=== PATIENT | male | born 1940 | race Caucasian/White ===

== ENCOUNTER 2017-08-09 07:21 | Inpatient (IN) | payer MEDICARE, BC ==
[2017-08-09] VITALS (8 sets, daily range): BP systolic 114–183; BP diastolic 52–108
[~2017-08-09] VITALS: Ht 152.4 cm; Wt 86.2 kg
[~2017-08-09 07:21] MED LIST: ACETAMINOPHEN-1 EAC1 PO; ACTOS 30 MG TAB30 MG PO; ASPIR 8181 M1 PO; ATIVAN1 MG PO; CARAFATE1 GM/10 ML PO; CEFPODOXIME PR100 MG PO; FISH OIL 500 M1 EACH PO; FLOMAX0.4 MG PO; GLUCOPHAGE500 MG PO; GLUCOTROL5 MG PO; GLUMETZA500 PO; GLYCRON6 MG PO; JALYN 0.5-0.41 EACH PO; JANUVIA100 MG PO; KLOR-CON 1010 MEQ PO; LANTUS100 UNIT/M SUBQ; LASIX 40 MG TAB40 M2 PO; LEVAQUIN 250 M250 MG PO; LEVAQUIN 750 M750 MG PO; LISINOPRIL-HCT1 EAC2 PO; MINIPRIN81 MG PO; NEURONTIN 300300 M1 PO; NORVASC 5 MG TAB5 MG PO; NYSTATIN 1100000 U/M PO; OMEPRAZOLE40 MG PO; ONDANSETRON HCL4 M2 PO; PRILOSEC40 MG PO; PROBIOTIC1 EAC1 PO; REGLAN 10 MG TA10 MG PO; RESTORIL15 MG PO; SIMVASTATIN40 MG PO; SPIRIVA INH; TOPROL XL25 MG PO; TRADJENTA5 MG PO; ULTRAM 50MG TAB50 MG PO; VIAGRA100 MG PO; ZOFRAN ODT4 MG PO; ZPAK PO; ZYVOX600 MG PO
[2017-08-09 08:04] LABS: ANION GAP 12 mmol/L (7-16); BUN 25 mg/dL (7-18); CALCIUM 8.9 mg/dL (8.5-10.1); CHLORIDE 103 mmol/L (98-107); CO2 25 mmol/L (21-32); CREATININE 1.1 mg/dL (0.6-1.3); GLUCOSE 131 mg/dL (70-99); POTASSIUM 3.9 mmol/L (3.5-5.1); SODIUM 140 mmol/L (136-145)
[2017-08-09 08:07] LABS: APTT 28.8 Seconds (25.0-31.3); INR 1.2; PROTIME 11.5 Seconds (9.20-11.50)
[2017-08-09 08:08] LABS: HEMATOCRIT 33.1 % (42.0-52.0); HEMOGLOBIN 10.6 gm/dL (14.0-18.0); MCH 25.1 pg (26.0-34.0); MCV 78.3 fL (80.0-100.0); MPV 9.4 fl. (7.2-11.1); NUCLEATED RBCS 0 /100WBC; PLATELET COUNT* 207 thou/uL (150-400); RBC 4.23 mil/uL (4.50-6.00); RDW-CV 19.3 % (10.5-14.5)
[2017-08-09 08:13] LABS: ALBUMIN 3.6 g/dL (3.4-5.0); ALKALINE PHOSPHATASE 150 U/L (46-116); NT-PRO BRAIN NAT PEPTIDE 767 pg/mL (<300); SGOT 26 U/L (15-37); SGPT 21 U/L (30-65); TOTAL BILIRUBIN 0.7 mg/dL (<0.1-1.0); TOTAL PROTEIN 8.2 g/dL (6.4-8.2); TROPONIN-I LEVEL <0.06 ng/mL (<0.06)
[2017-08-09 08:15] LABS: INFLUENZA A ANTIGEN None Detected (None Detect); INFLUENZA B ANTIGEN None Detected (None Detect)
[2017-08-09 08:27] LABS: ABSOLUTE EOSINOPHILS 0.6 thou/uL (0.0-0.7); ABSOLUTE LYMPHOCYTES 1.6 thou/uL (0.8-5.3); ABSOLUTE MONOCYTES 0.3 thou/uL (0.0-1.2); ABSOLUTE NEUTROPHILS 4.6 thou/uL (1.6-8.1); HYPOCHROMASIA 1+; PLATELET ESTIMATE ADEQUATE
[2017-08-09 12:04] LABS: URINE BILIRUBIN NEGATIVE (Negative); URINE BLOOD TRACE (Negative); URINE CLARITY CLEAR; URINE COLOR YELLOW; URINE GLUCOSE-RANDOM NEGATIVE (Negative); URINE KETONES NEGATIVE (Negative); URINE LEUKOCYTES-REFLEX NEGATIVE (Negative); URINE NITRITE-REFLEX NEGATIVE (Negative); URINE PROTEIN TRACE (Negative)
[2017-08-09] MEDS ORDERED: LANTUS SUBQ (12:48)
--- NOTE | 2017-08-09 17:44 | 2DMMODE ---
[place] [address] 2 D/M-MODE ECHOCARDIOGRAM Name: ISABELAWINDY Room: 002P [facility] IN [facility]#: [id number] Admission: 08/09/17 Attend Phys: Marnie Waddell, Discharge: Date of : 36 Date of Service: 08/09/17 1743 Report #: [id number] THIS REPORT FOR: //name// APPROVED REPORT Study performed: 08/09/2017 16:14:49 EXAM: Comprehensive 2D, Doppler, and color-flow Echocardiogram Patient Location: In-Patient Room #: [facility] Status: routine BSA: 2.04 HR: 71 bpm BP: 114/50 mmHg Rhythm: NSR Other Information Study Quality: Good Indications Elevated Troponin 2D Dimensions LVEF(%): 66.46 (>50%) IVSd: 10.67 (7-11mm) LVOT Diam: 24.52 (18-24mm) LVDd: 40.53 mm PWd: 10.99 (7-11mm) LVDs: 25.84 (25-40mm) Aortic Root: 30.16 mm Roche's LVEF: 66.46 % Volumes Left Atrial Volume (Systole) LA ESV Index: 34.50 mL/m2 Aortic Valve AoV Peak Rishabh.: 1.48 m/s AO Peak Gr.: 8.78 mmHg LVOT Max P.79 mmHg AO Mean Gr.: 5.18 mmHg LVOT Mean P.75 mmHg LVOT Max V: 0.97 m/s AO V2 VTI: 26.60 cm LVOT Mean V: 0.60 m/s LALITO (VTI): 3.36 cm2 LVOT V1 VTI: 18.90 cm Mitral Valve E/A Ratio: 1.53 [place] [address] 2 D/M-MODE ECHOCARDIOGRAM Name: WINDY MAR Room: [address] IN ..#: [id number] Admission: 08/09/17 Attend Phys: Marnie Waddell, Discharge: Date of : 36 Date of Service: 08/09/17 1743 Report #: [id number] MV Decel. Time: 176.12 ms MV E Max Rishabh.: 0.89 m/s MV PHT: 51.07 ms MVA (PHT): 4.31 cm2 TDI E/Lateral E': 8.90 E/Medial E': 8.90 Medial E' Rishabh.: 0.10 m/s Lateral E' Rishabh.: 0.10 m/s Pulmonary Valve PV Peak Rishabh.: 0.99 m/s PV Peak Gr.: 3.90 mmHg Tricuspid Valve TR Peak Gr.: 25.36 mmHg RVSP: 40.00 mmHg Left Ventricle The left ventricle is normal size. There is normal LV segmental wall motion. Borderline concentric left ventricular hypertrophy. Left ventricular systolic function is normal. The left ventricular ejection fraction is within the normal range. LVEF is 60%. The left ventricular diastolic function is normal. Right Ventricle The right ventricle is normal size. The right ventricular systolic function is normal. Atria The left atrium size is normal. The right atrium size is normal. Aortic Valve Mild aortic valve sclerosis. No aortic regurgitation is present. There is no aortic valvular stenosis. Mitral Valve Mild mitral annular calcification. Trace mitral regurgitation. No evidence of mitral valve stenosis. Tricuspid Valve The tricuspid valve is normal in structure. Trace tricuspid regurgitation. The RVSP is 40-45 mmHg. Pulmonic Valve The pulmonary valve is normal in structure. [place] [address] 2 D/M-MODE ECHOCARDIOGRAM Name: WINDY MAR Room: [address] IN [facility]#: [id number] Admission: 08/09/17 Attend Phys: Marnie Waddell, Discharge: Date of : 36 Date of Service: 08/09/17 1743 Report #: [id number] Great Vessels The aortic root is normal in size. IVC is dilated and collapses >50% with inspiration. Pericardium There is no pericardial effusion. <Conclusion> The left ventricle is normal size. Borderline concentric left ventricular hypertrophy. Left ventricular systolic function is normal. The left ventricular ejection fraction is within the normal range. LVEF is 60%. The left ventricular diastolic function is normal. The right ventricle is normal size. The left atrium size is normal. Mild aortic valve sclerosis. No aortic regurgitation is present. There is no aortic valvular stenosis. Mild mitral annular calcification. Trace mitral regurgitation. No evidence of mitral valve stenosis. The tricuspid valve is normal in structure. Trace tricuspid regurgitation. The RVSP is 40-45 mmHg. IVC is dilated and collapses >50% with inspiration. There is no pericardial effusion. There is normal LV segmental wall motion. <ELECTRONICALLY SIGNED> By: Tito Encarnacion MD, FACC 08/09/171742 42 42 Tito Encarnacion MD, FACC /INF
[2017-08-10 02:00] VITALS: BP 143/101
[2017-08-10 05:47] LABS: HEMOGLOBIN 8.8 gm/dL (14.0-18.0); MCH 26.4 pg (26.0-34.0); MCHC 33.6 g/dL (28.0-37.0); MCV 78.4 fL (80.0-100.0); MPV 9.3 fl. (7.2-11.1); RBC 3.32 mil/uL (4.50-6.00); RDW-CV 19.2 % (10.5-14.5); WBC 7.3 thou/uL (4.0-11.0)
[2017-08-10 05:52] LABS: ALBUMIN 2.7 g/dL (3.4-5.0); CALCIUM 8.1 mg/dL (8.5-10.1); CREATININE 1.1 mg/dL (0.6-1.3); MAGNESIUM 1.5 mg/dL (1.8-2.4); POTASSIUM 4.1 mmol/L (3.5-5.1); TOTAL BILIRUBIN 0.7 mg/dL (<0.1-1.0); TOTAL PROTEIN 6.3 g/dL (6.4-8.2)
[2017-08-10 06:00] VITALS: BP 122/53
[2017-08-10 08:00] VITALS: BP 112/58
[2017-08-10 12:00] VITALS: BP 112/80
--- NOTE | 2017-08-10 12:39 | EKG ---
[place] [address] ELECTROCARDIOGRAM REPORT Name: WINDY MAR Room: [address] ADM IN M.R.#: [id number] Admission: 08/09/17 Attend Phys: Marnie Waddell MD Discharge: Date of : 36 Report #: [id number] THIS REPORT FOR: //name// [facility] ED Test Date: 2017-08-09 Test Time: 07:27:19 Pat Name: WINDY MAR Department: Room: [facility] Gender: M Central Supply Nurse: Mariah NOLAND : 1940 Requested By: Jac Bill Order Number: [id number] MD: Oniel Wellington Measurements Intervals Telephone Rate: 102 P: -15 RI: 225 QRS: -5 QRSD: 84 T: 131 QT: 331 QTc: 432 Interpretive Statements Sinus tachycardia Prolonged RI interval Low voltage, extremity leads Nonspecific repol abnormality, diffuse leads Compared to ECG 11/20/2016 07:37:01 First degree AV block now present Sinus rhythm no longer present Prolonged QT interval no longer present Electronically Signed On 08-10-2017 12:39:43 RESIN REMOVER by Oniel Wellington [email or web address] <ELECTRONICALLY SIGNED> By: Oniel Wellington MD, FACC 08/10/17 1239 6 6 Oniel Wellington MD, FAC /EPI
[2017-08-10 12:41] LABS: HEMATOCRIT 25.4 % (42.0-52.0); HEMOGLOBIN 8.2 gm/dL (14.0-18.0); MCH 25.5 pg (26.0-34.0); MCHC 32.3 g/dL (28.0-37.0); MCV 78.9 fL (80.0-100.0); MPV 8.6 fl. (7.2-11.1); RBC 3.22 mil/uL (4.50-6.00); RDW-CV 19.3 % (10.5-14.5); WBC 6.5 thou/uL (4.0-11.0)
[2017-08-10 15:59] VITALS: BP 136/66
[2017-08-10 23:41] VITALS: BP 133/62
[2017-08-11 04:14] VITALS: BP 144/67
[2017-08-11 04:29] LABS: HEMATOCRIT 26.3 % (42.0-52.0); HEMOGLOBIN 8.5 gm/dL (14.0-18.0); MCH 25.1 pg (26.0-34.0); MCHC 32.3 g/dL (28.0-37.0); MCV 77.7 fL (80.0-100.0); MPV 9.6 fl. (7.2-11.1); RBC 3.38 mil/uL (4.50-6.00); RDW-CV 19.6 % (10.5-14.5); WBC 7.3 thou/uL (4.0-11.0)
[2017-08-11 05:03] LABS: ALBUMIN 2.8 g/dL (3.4-5.0); CALCIUM 8.5 mg/dL (8.5-10.1); CREATININE 1.2 mg/dL (0.6-1.3); MAGNESIUM 1.5 mg/dL (1.8-2.4); POTASSIUM 3.9 mmol/L (3.5-5.1); TOTAL BILIRUBIN 0.8 mg/dL (<0.1-1.0); TOTAL PROTEIN 6.7 g/dL (6.4-8.2)
[2017-08-11 09:00] VITALS: BP 142/69
[2017-08-11 16:24] VITALS: BP 129/57
[2017-08-11 20:00] VITALS: BP 150/67
[2017-08-12 00:02] VITALS: BP 136/54
[2017-08-12 03:35] VITALS: BP 113/51
[2017-08-12 07:30] VITALS: BP 129/66
[2017-08-12] MEDS ORDERED: CEFDINIR300 MG PO (07:56)
[2017-08-12] MEDS ORDERED: ASPIR 8181 MG PO (07:56)
[2017-08-12] MEDS ORDERED: PROBIOTIC1 EAC1 PO (07:56)
[2017-08-12] MEDS ORDERED: VENTOLIN HFA 1818 GM INH (07:56)
[2017-08-12] MEDS ORDERED: AZITHROMYCIN 2250 MG PO (07:56)
[2017-08-12 10:12] VITALS: BP 129/66
[2017-08-12 13:00] VITALS: BP 129/66
== END 2017-08-12 13:00 | disposition home health service (06) | DRG 177 ==
LOC: M.ERS 07:21 → M.ICU 09:12 → M.TBA-ER 09:12 → M.ICU 10:20 → M.3W 08-10 14:25
PROVIDERS: Emergency Medicine Emergency Medical Services; ADMIT Internal Medicine
PROC: 5A09357 Assistance with Respiratory Ventilation, Less than 24 Consecutive Hours, Continuous Positive Airway Pressure (ICD-10-PCS; principal; 2017-08-09)
DX: J15.6 Pneumonia due to other Gram-negative bacteria (principal); J96.01 Acute respiratory failure with hypoxia; J44.0 Chronic obstructive pulmonary disease with (acute) lower respiratory infection; I10 Essential (primary) hypertension; E11.9 Type 2 diabetes mellitus without complications; K21.9 Gastro-esophageal reflux disease without esophagitis; E78.5 Hyperlipidemia, unspecified; Z85.01 Personal history of malignant neoplasm of esophagus; Z87.891 Personal history of nicotine dependence; Z79.899 Other long term (current) drug therapy; Z82.5 Family history of asthma and other chronic lower respiratory diseases

== ENCOUNTER → 2017-10-25 | Outpatient (CLI) | payer MEDICARE, BC ==
[~2017-10-25] MED LIST changes: +ASPIR 8181 MG PO; +ATIVAN0.5 MG PO; +AZITHROMYCIN 2250 MG PO; +CEFDINIR300 MG PO; +LANTUS SUBQ; +VENTOLIN HFA 1818 GM INH
--- NOTE | 2017-10-25 10:55 | NUR ---
ARRIVED AMBULATORY. MADE SELF COMFORTABLE IN RELCINER. PORT A CATH TO RIGHT CHEST FREE FROM SIGN OF INFECTION. PORT ACCESSED WITH OUT DIFFICULTY. GOOD BLOOD RETURN NOTED AND FLUSHED WITH EASE. PORT FLUSHED AND DEACCESSED. BANDAID APPLIED. DENIES QUESTIONS OR NEEDS AT DISCHARGE.
== END ==
LOC: M.INFUS 09:30
DX: Z45.2 Encounter for adjustment and management of vascular access device (principal)

== ENCOUNTER 2018-03-28 12:59 | Inpatient (IN) | payer MEDICARE, BC ==
[~2018-03-28] VITALS: Ht 177.8 cm; Wt 78.9 kg
[~2018-03-28 12:59] MED LIST changes: -ATIVAN0.5 MG PO
[2018-03-28 14:26] LABS: MCH 25.4 pg (26.0-34.0); MCHC 32.3 g/dL (28.0-37.0); MCV 78.8 fL (80.0-100.0); MPV 8.3 fl. (7.2-11.1); NUCLEATED RBCS 0 /100WBC; PLATELET COUNT* 234 thou/uL (150-400); RBC 3.55 mil/uL (4.50-6.00); RDW-CV 18.8 % (10.5-14.5); WBC 8.8 thou/uL (4.0-11.0)
[2018-03-28 14:37] LABS: ANION GAP 2 mmol/L (7-16); BUN 22 mg/dL (7-18); CALCIUM 9.1 mg/dL (8.5-10.1); CHLORIDE 103 mmol/L (98-107); CO2 30 mmol/L (21-32); GLUCOSE 106 mg/dL (70-99); INR 1.2; POTASSIUM 4.3 mmol/L (3.5-5.1); SODIUM 135 mmol/L (136-145)
[2018-03-28 14:47] LABS: ALBUMIN 3.5 g/dL (3.4-5.0); ALKALINE PHOSPHATASE 90 U/L (46-116); LIPASE 40 U/L (73-393); MAGNESIUM 1.4 mg/dL (1.8-2.4); NT-PRO BRAIN NAT PEPTIDE 2097 pg/mL (<300); SGOT 18 U/L (15-37); SGPT 17 U/L (30-65); TOTAL BILIRUBIN 0.9 mg/dL (<0.1-1.0); TOTAL PROTEIN 7.5 g/dL (6.4-8.2); TROPONIN-I LEVEL <0.06 ng/mL (<0.06)
--- NOTE | 2018-03-28 14:56 | EKG ---
[place] [address] ELECTROCARDIOGRAM REPORT Name: WINDY MAR Room: [facility]#: [id number] Admission: 03/28/18 Attend Phys: Discharge: Date of : 36 Report #: [id number] THIS REPORT FOR: //name// [facility] ED Test Date: 2018-03-28 Test Time: 13:16:18 Pat Name: WINDY MAR Department: Room: Gender: M [employer] Rater: [facility] [place] : 1940 Requested By: Yg Gonzalez Order Number: [id number] MD: Tito Encarnacion Measurements Intervals [place] Rate: 67 P: 32 WA: 190 QRS: -4 QRSD: 84 T: 111 QT: 416 QTc: 439 Interpretive Statements Sinus rhythm Low voltage, extremity leads Borderline repolarization abnormality Baseline wander in lead(s) V3 Compared to ECG 08/09/2017 07:27:19 Sinus tachycardia no longer present First degree AV block no longer present Electronically Signed On 03-28-2018 14:56:17 CDT by Tito Encarnacion [email or web address] <ELECTRONICALLY SIGNED> By: Tito Encarnacion MD, FACC 03/28/18 1456 1316 1316 Tito Encarnacion MD, FAC /EPI
[2018-03-28 15:08] LABS: ABSOLUTE EOSINOPHILS 0.1 thou/uL (0.0-0.7); ABSOLUTE LYMPHOCYTES 1.3 thou/uL (0.8-5.3); ABSOLUTE MONOCYTES 0.5 thou/uL (0.0-1.2); ABSOLUTE NEUTROPHILS 6.9 thou/uL (1.6-8.1); PLATELET ESTIMATE ADEQUATE
[2018-03-28 15:09] LABS: ANISOCYTOSIS 2+; TARGET CELLS 2+
[2018-03-28 17:06] VITALS: BP 128/50
[2018-03-28 18:00] VITALS: BP 119/53
[2018-03-28] MEDS ORDERED: OMEPRAZOLE40 MG PO (18:21)
[2018-03-28] MEDS ORDERED: FLOMAX0.4 MG PO (18:23)
[2018-03-28] MEDS ORDERED: GLUCOTROL5 MG PO (18:24)
[2018-03-28] MEDS ORDERED: ATIVAN0.5 MG PO (18:27)
--- NOTE | 2018-03-28 18:54 | NUR ---
PATIENT ADMITTED TO ROOM 204 THIS EVENING FROM ER WITH A RECENT HX OF SOA. PATIENT IS ALERT AND ORIENTED X 4. HIS O2 SATS AR 95 TO 96% ON ROOM AIR. PATIENT C/O SOME SOA. LUNG SOUNDS ARE DIMINISHED WITH RALES TO BASES BILATERALLY. PATIENT ORIENTED TO ROOM AND PROCEDURES. ADMISSION PROCEDURES DONE. PATIENT GIVEN DINNER. PLACED ON TELE MONITOR. TELE SHOWS NSR. STAGE 2 DECUB NOTED ON ADMISSION. PICTURE TAKEN. MOISTURE BARRIER APPLIED AND PATIENT INSTRUCTED TO TURN Q 2 HR SIDE TO SIDE. WILL REPORT TO CAREER SERVICES OFFICER.
[2018-03-28 20:00] VITALS: BP 127/50
[2018-03-29] VITALS: BP 112/48
--- NOTE | 2018-03-29 01:27 | NUR ---
ASSUMED PT CARE AT 1930. ASSESSMENT COMPLETED CHARTED. ACCESSED PORTACATH PER P.O. ABLE TO MAKE NEEDS KNOWN, PLEASENT TO STAFF, UP AD LEODAN. NO C/O PAIN OR DISCOMFORT. PT RESTING IN BED AT THIS TIME. WILL CONTINUE TO MONITOR.
[2018-03-29 04:00] VITALS: BP 124/55
[2018-03-29 04:57] LABS: ABSOLUTE NEUTROPHILS 4.8 thou/uL (1.6-8.1); HEMOGLOBIN 7.8 gm/dL (14.0-18.0); MPV 9.2 fl. (7.2-11.1); NUCLEATED RBCS 0 /100WBC; WBC 5.5 thou/uL (4.0-11.0)
[2018-03-29 04:58] LABS: ABSOLUTE LYMPHOCYTES 0.4 thou/uL (0.8-5.3); ABSOLUTE MONOCYTES 0.3 thou/uL (0.0-1.2); BASOPHILS 0.4 %; EOSINOPHILS 0.1 %; HEMATOCRIT 23.9 % (42.0-52.0); LYMPHOCYTES 7.1 %; MCH 25.5 pg (26.0-34.0); MCHC 32.6 g/dL (28.0-37.0); MCV 78.1 fL (80.0-100.0); MONOCYTES 5.8 %; PLATELET COUNT* 199 thou/uL (150-400); POLYS 86.6 %; RBC 3.07 mil/uL (4.50-6.00); RDW-CV 19.1 % (10.5-14.5)
[2018-03-29 05:16] LABS: CALCIUM 8.6 mg/dL (8.5-10.1); CREATININE 1.2 mg/dL (0.6-1.3); POTASSIUM 4.3 mmol/L (3.5-5.1)
[2018-03-29 09:30] VITALS: BP 129/51
[2018-03-29 11:46] VITALS: BP 102/40
--- NOTE | 2018-03-29 14:06 | NUR ---
ASSUMED PT CARE AT 0700 PT DENIES PAIN OR SOA ON RA, PT IS UP AD LEODAN PT IS NOT A FALL RISK, PT IS SB ON THE MONITOR ASYMPTOMATIC, PT IS RECEIVING ANTIBIOTICS WITH ADVERSE REACTIONS NOTED, PT IS PLESANT AND COOPERATIVE, WILL CONTINUE TO MONITOR
--- NOTE | 2018-03-29 15:03 | NUR ---
RE: CHF medication education. Met with the patient to discuss heart failure medication. Discussion foscused on metoprolol. Pt stated he had received individual doses of furosemide so we also discussed that. Reviewed rationale for therapies and importance of complying with regimen. Discussed possible side effects and tools to manage. Left medication information sheet with patient and provided pharmacy contact information for any further questions or issues. Thank you.
--- NOTE | 2018-03-29 15:07 | NUR ---
Pt is A&O. Resides at home. Independent. No DME. No hx of HH or SNF. Known to this CM from previous hospital stay. Supportive family that is involved in POC. Goal is home at dc. Following.
[2018-03-29 15:42] VITALS: BP 116/52
[2018-03-29 17:30] LABS: % SATURATION 3 % (20-39); IRON 11 ug/dL (50-175)
[2018-03-29 20:00] VITALS: BP 122/64
[2018-03-30] VITALS: BP 93/51
[2018-03-30 04:00] VITALS: BP 120/54
[2018-03-30 04:18] LABS: ABSOLUTE EOSINOPHILS 0.3 thou/uL (0.0-0.7); ABSOLUTE LYMPHOCYTES 0.7 thou/uL (0.8-5.3); ABSOLUTE MONOCYTES 0.5 thou/uL (0.0-1.2); BASOPHILS 0.8 %; EOSINOPHILS 5.6 %; HEMATOCRIT 23.5 % (42.0-52.0); HEMOGLOBIN 7.5 gm/dL (14.0-18.0); LYMPHOCYTES 12.9 %; MCH 25.6 pg (26.0-34.0); MCHC 32.1 g/dL (28.0-37.0); MCV 79.6 fL (80.0-100.0); MONOCYTES 8.2 %; MPV 9.4 fl. (7.2-11.1); NUCLEATED RBCS 0 /100WBC; PLATELET COUNT* 173 thou/uL (150-400); POLYS 72.5 %; RBC 2.95 mil/uL (4.50-6.00); RDW-CV 19.1 % (10.5-14.5); WBC 5.5 thou/uL (4.0-11.0)
[2018-03-30 04:39] LABS: ALBUMIN 2.9 g/dL (3.4-5.0); CALCIUM 8.4 mg/dL (8.5-10.1); CREATININE 1.3 mg/dL (0.6-1.3); POTASSIUM 4.2 mmol/L (3.5-5.1); TOTAL BILIRUBIN 0.6 mg/dL (<0.1-1.0); TOTAL PROTEIN 6.7 g/dL (6.4-8.2)
--- NOTE | 2018-03-30 05:13 | NUR ---
ASSUMED PT CARE AT 1930, PT IS A&OX4, PT IS TRACING NSR ON THE MONITOR, ON RA SATTING MID TO HIGH 90'S. PT IS UP AD LEODAN IN IS ROOMA ND APPEARS STABLE ON HIS FEET. PT DENIES ANY PAION OR NEEDS AT THIS TIME. BED IN LOW POSITION, CALL LIGHT IN REACH. HOURLY ROUNDING COMPLETED FOR PT SAFETY.
[2018-03-30 08:00] VITALS: BP 125/56
--- NOTE | 2018-03-30 10:31 | NUR ---
ASSUMED CARE OF PT AT 0730. PT RESTING IN CHAIR WAITING FOR BREAKFAST. PT A&0X4, DENIES ANY PAIN OR SHORTNESS OF BREATH AT THIS TIME. PT TRACING SR ON THE REFRACTORY MANAGER. ON RA SAT UPPER 90'S. PT UP AD LEODAN IN ROOM. PT GOAL FOR TODAY IS TO MONITOR HGB, INCREASE ACTIVITY- PT AND OT EVAL AND TREAT AND HEMOC CONSULT FOR ANEMIA. AM ASSESSMENT CHARTED. MEDICATIONS PER MAR. PT REPOSITIONS SELF. HOURLY ROUNDING OBSERVED. BED IN LOW POSITION. CALL LIGHT WITHIN REACH. WILL CONTINUE PLAN OF CARE.
[2018-03-30 11:21] VITALS: BP 116/48
--- NOTE | 2018-03-30 13:19 | NUR ---
Nutrition: Pt was seen for pressure ulcer on sacrum. Pt stated that is healed now, but easily could flare up. He doesn't take a MVI, but he gets IV from wood ski maker monthly. H/o esophageal cancer/chemo/RAD, DM, PVD, HLD, CHF, COPD. Wt 175#, from 185# in 2016 - mild loss. BUN 34, cr 1.3, GFR 53, alb 2.9, BG 112, BNP 2097. RX: insulin, statin, aspirin, metformin. He stated his appetite/intake are fair. He requested CHO controlled diet - RD ordered this for him. No nutrition concerns at this time. Mild risk.
[2018-03-30 15:29] VITALS: BP 119/53
--- NOTE | 2018-03-30 17:30 | NUR ---
NO ACUTE CHANGES THROUGHOUT SHIFT. REFER TO CHARTING. AWAITING HEM/ONC EVAL FOR ANEMIA. PT AT BEDSIDE THIS AFTERNOON. PT UP AD LEODAN IN ROOM. DENIES ANY PAIN OR SHORTNESS OF BREATH THROUGHOUT AFTERNOON. CONTINUES TO TRACE SR ON THE WINE MANAGER. ON RA SAT UPPER 90'S. MEDICATIONS PER AUG. PT REPOSITIONS SELF. HOURLY ROUNDING OBSERVED. BED IN LOW POSITION. CALL LIGHT WITHIN REACH. WILL CONTINUE PLAN OF CARE.
[2018-03-30 20:30] VITALS: BP 132/58
[2018-03-31] VITALS: BP 124/53
[2018-03-31 04:00] VITALS: BP 120/64
--- NOTE | 2018-03-31 06:35 | NUR ---
ASSUMED PT NCRAE AT 1930, PT IS A&OX4, PT IS TRACING NSR ON THE MONITOR, ON RA SATTING MID TO HIGH 90'S PT DENIES ANY PAIN OR NEEDS AT THIS TIME. BED IN LOW POSITION, CALL LIGHT IN REACH. HOURLY ROUNDING COMPLETED FOR PT SAFETY.
[2018-03-31 08:00] VITALS: BP 116/48
--- NOTE | 2018-03-31 10:24 | NUR ---
ASSUMED CARE OF PT AT 0730. PT RESTING IN RECLINER WAITING FOR BREAKFAST. PT A&0X4, DENIES ANY PAIN OR SHORTNESS OF BREATH AT THIS TIME. PT TRACING SR ON THE STAMPER BLOCKER. ON RA SAT 95%. PT UP AD LEODAN IN ROOM. PT GOAL FOR TODAY IS TO HAVE A BOWEL MOVEMENT, PT STATES HE HASNT HAD ONE IN 3 DAYS, IRON INFUSIONS, INCREASE ACTIVITY AND MONITOR HGB. AM ASSESSMENT CHARTED. MEDICATIONS PER AUG. PRN COLACE AND MIRALAX GIVEN. PT REPOSITIONS SELF WITH REMINDERS. HOURLY ROUNDING OBSERVED. BED IN LOW POSITION. CALL LIGHT WITHIN REACH. WILL CONTINUE PLAN OF CARE.
[2018-03-31 12:22] VITALS: BP 122/54
--- NOTE | 2018-03-31 14:12 | CON ---
[address] [address] CONSULTATION Name: WINDY MAR Room: [address] IN M.R.#: [id number] Admission: 03/28/18 Attend Phys: Fox Alves MD Discharge: Date of : 38 Report #: [id number] THIS REPORT FOR: //name// CC: Fox Dalal DATE OF SERVICE: 03/30/2018 REASON FOR CONSULTATION: Iron deficiency anemia. HISTORY OF PRESENT ILLNESS: The patient is a pleasant 77-year-old male who has a history of esophageal cancer diagnosed 8-9 years ago and was operated upon by Dr. Sampson at [facility]. The patient has had routine surveillance EGDs and reports having an EGD 1 month ago, which was unremarkable. The patient is admitted with shortness of breath and with a diagnosis of CHF and COPD exacerbation and possible community-acquired pneumonia. The patient was found to have decreased hemoglobin and hematocrit upon admission. His hemoglobin was found to be 9 g/dL and has decreased to 7.5. His MCV was also decreased at 78.8 with decreased MCH of 25.4. His platelet counts have been normal at 173 with normal WBC count of 5.5. Chemistries otherwise were unremarkable for any renal or hepatic insufficiency. His iron saturation was significantly decreased at 3% with ferritin level of 34 and iron level of 11. Hematology/Oncology was consulted for further evaluation. The patient says that his shortness of breath has been better since admission. He does not complain of any headaches, dizziness, nausea, vomiting, constipation, diarrhea, chest pain, palpitations, or other significant symptoms otherwise. PAST MEDICAL HISTORY: 1. Esophageal cancer history several years ago. 2. COPD. 3. Hypertension. 4. Diabetes. 5. Hiatal hernia. 6. Esophageal reflux. 7. Hyperlipidemia. 8. Port-A-Cath in the right chest. 9. 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 10. Pneumonia. 11. Esophageal strictures that had to be dilated in 12/2016. 12. Right-sided pleural effusion with talc injection for pleurodesis. FAMILY HISTORY: COPD. Does not relate any family history of cancers [place] [address] CONSULTATION Name: WINDY MAR Room: [address]#: [id number] Admission: 03/28/18 Attend Phys: Fox Alves MD Discharge: Date of : 38 Report #: [id number] PERSONAL HISTORY: The patient is a former smoker and does not use any alcohol or other illicit drugs. ALLERGIES: No known drug allergies. CURRENT MEDICATIONS: 1. Insulin Humalog as directed. 2. Aspirin 81 mg p.o. daily. 3. Glucophage 1000 mg p.o. daily. 4. Protonix 40 mg p.o. daily. 5. Toprol-XL 25 mg p.o. b.i.d. 6. Insulin Lantus subcutaneously at bedtime. 7. Neurontin 300 mg p.o. at bedtime. 8. Lovenox 40 mg subcutaneously at bedtime. 9. Lipitor 40 mg p.o. at bedtime. 10. Zosyn 3.375 grams IV q.8 hours. 11. Saline flush q.6 hours as needed. 12. Temazepam 15 mg p.o. at bedtime as needed. 13. MiraLax 17 grams p.o. daily. 14. Zofran 4 mg IV push q.6 hours as needed. 15. Hydralazine 10 mg IV push q.6 hours. 16. Docusate 100 mg p.o. daily. 17. DuoNeb 3 mL inhalation q.i.d. REVIEW OF SYSTEMS: A 13-point review of systems obtained, negative for any findings except those discussed in the HPI. PHYSICAL EXAMINATION: VITAL SIGNS: Temperature today was 36.8 degrees centigrade, pulse was 56 beats per minute, respiratory rate was 18 breaths per minute, blood pressure 119/53 mmHg, pulse ox 97% on room air. GENERAL: Awake, alert, oriented x 3, no apparent distress. HEENT: EOMI/PERRL. LYMPHATICS: No lymphadenopathy in the neck or supraclavicular areas. CHEST: Clear bilaterally with no added sounds. CARDIOVASCULAR: Regular rate and rhythm without any murmurs. ABDOMEN: Soft, bowel sounds positive. MUSCULOSKELETAL: No significant arthropathy. Gait normal. NEUROLOGIC: No evidence of any focal neurological deficit. INTEGUMENTARY: No evidence of rash or other skin changes. ASSESSMENT AND PLAN: The patient is a very pleasant 77-year-old male with a history of prior esophageal resection by Dr. Sampson for esophageal adenocarcinoma several years ago. The patient also has required pleurodesis procedure few years ago. The patient is admitted to the hospital with pneumonia and chronic obstructive pulmonary disease exacerbation and his symptoms are [facility] [address] [place] [address] CONSULTATION Name: WINDY MAR Room: [address] IN .R.#: [id number] Admission: 03/28/18 Attend Phys: Fox Alves MD Discharge: Date of : 38 Report #: [id number] better controlled at this time. He was also found to have incidental finding of iron deficiency anemia. He does give a history of a colonoscopy approximately 2 years ago and EGD approximately 1 month ago with no suspicious findings. The patient may need small bowel evaluation to exclude GI bleed from the small bowel. I will plan to start him on Venofer 200 mg IV daily for 5 days. If the patient is discharged before 5 days, these can be continued as an outpatient in the clinic and the patient can follow up with Dr. Bernardo in the outpatient clinic. Plan was discussed with the patient in detail and all of his questions answered to his satisfaction. Thank you for allowing us to participate in care of this pleasant patient. <ELECTRONICALLY SIGNED> By: Chas Ospina MD 03/31/18 1412 1836 [id number] Ospina MD /nt
--- NOTE | 2018-03-31 16:45 | NUR ---
NO ACUTE CHANGES THROUGHOUT SHIFT. REFER TO CHARTING. PT PROGRESSING TOWARDS GOALS, AMBULATED IN HALLWAY TODAY WITH NO DIFFICULTIES. PT AT BEDSIDE THIS AFTERNOON. SHOWERED INDEPENDENTLY THIS AFTERNOON. IRON INFUSION COMPLETED WITH NO DIFFICULTY. PLAN IS TO STAY OVER THE WEEKEND AND RECEIVE IRON INFUSIONS AND FOLLOW UP OUTPT AT DR GROVES OFFICE. PT CONTINUES TO TRACE SR ON THE NEWSPAPER DELIVERY COUNSELOR. ON RA SAT UPPER 90'S. DENIES ANY PAIN OR SHORTNESS OF BREATH. PT UP AD LEODAN. MEDICATIONS PER AUG. PT REPOSITIONS SELF. HOURLY ROUNDING OBSERVED. BED IN LOW POSITION. CALL LIGHT WITHIN REACH. WILL CONTINUE PLAN OF CARE.
[2018-03-31 17:01] VITALS: BP 147/68
[2018-03-31 20:00] VITALS: BP 146/57
[2018-04-01 02:03] VITALS: BP 99/60
[2018-04-01 04:42] VITALS: BP 134/86
--- NOTE | 2018-04-01 07:06 | NUR ---
ASSUMED PT CARE AT 1930. NURSING ASSESSMENT COMPLETED AT START OF SHIFT. CHILI PEPPER GRINDER IN PLACE, TRACING SINUS RHYTHM/SINUS BRANDEN THIS SHIFT. HOURLY ROUNDING COMPLETED. PT'S BLOOD GLUCOSE 41 WITH AM LABS. ACCU CHECK 44. PT ASYMPTOMATIC, APPLE JUICE GIVEN AND GRAM CRACKERS AT 0650.
[2018-04-01 08:00] VITALS: BP 114/41
[2018-04-01 12:00] VITALS: BP 144/54
[2018-04-01 16:00] VITALS: BP 136/55
[2018-04-01 19:30] VITALS: BP 131/71
[2018-04-02] VITALS: BP 114/47
[2018-04-02 04:00] VITALS: BP 121/42
[2018-04-02 08:00] VITALS: BP 136/37
[2018-04-02] MEDS ORDERED: VENTOLIN HFA 1818 GM INH (10:57)
--- NOTE | 2018-04-02 10:59 | NUR ---
ASSUMED PT CARE AT 0730, FULL ASSESMENT DONE CHARTED. PT A/O X4, DENIES PAIN, VSS, SR/PVC'S ON THE MONITOR. PT STATES HE WANTS TO GO HOME TODAY. DR AVILA SAW PT, WROTE DISCHARGE ORDERES. WILL ASK HEME/ONC ABOUT IRON INFUSION OUT PT. PT RECIEVED IRON INF. THIS AM. TOLERATED WELL. PT UP AD LEODAN, CALLS APPROPRIALTY FOR NEEDS. WILL CONTINUE WITH PLAN OF CARE.
[2018-04-02 11:50] VITALS: BP 123/53
--- NOTE | 2018-04-18 12:52 | CON ---
[address] [address] CONSULTATION Name: WINDY MAR Room: [address] IN M.R.#: [id number] Admission: 03/28/18 Attend Phys: Fox Alves MD Discharge: 04/02/18 Date of : 38 Report #: [id number] THIS REPORT FOR: //name// CC: Fox Dalal HISTORY OF PRESENT ILLNESS: This is a pleasant 77-year-old male with past medical history significant for esophageal adenocarcinoma, status post resection, coronary artery disease, CHF, hypertension, and hyperlipidemia, who is presenting with worsening shortness of breath. The patient reports that he had dyspnea that woke him up last night, progressively worsening edema, increased fatigability, and generalized weakness. The patient denies any hematemesis, hematochezia, abdominal pain, nausea, vomiting, melena. The patient has had multiple EGDs and colonoscopies performed in the past. His last colonoscopy was last year, which demonstrated 2 polyps. PAST MEDICAL HISTORY: As mentioned above, the patient has history of esophageal adenocarcinoma, status post resection about 7 years back. He also has a history of hypertension, diabetes, hyperlipidemia, coronary artery disease, and CHF. PAST SURGICAL HISTORY: The patient had surgery for esophageal adenocarcinoma, had Port-A-Cath placement and talc injection for his recurrent right pleural effusions. FAMILY HISTORY: Significant for COPD. SOCIAL HISTORY: The patient denies recreational drug use or alcohol use. He used to be a smoker, but has since quit. REVIEW OF SYSTEMS: Comprehensive 10-point review of systems is negative except what is mentioned here. PHYSICAL EXAMINATION: VITAL SIGNS: Temperature 36.3, pulse rate 65, respirations 18, blood pressure 102/40, pulse ox 96%. GENERAL: The patient is alert, awake, oriented times 3. HEENT: Pupils are equal, round, reactive to light and accommodation. Mucous membranes are moist. NECK: There is no congestion. CHEST: Auscultation shows bilateral expiratory wheezes. CARDIOVASCULAR: Rate and rhythm regular, S1, S2 present. ABDOMEN: Soft. There is no distention. EXTREMITIES: No tenderness, no guarding or rigidity, pitting edema bilaterally. NEUROLOGIC: No focal neurological deficit. SKIN: [place] [address] CONSULTATION Name: WINDY MAR Room: [address]#: [id number] Admission: 03/28/18 Attend Phys: Fox Alves MD Discharge: 04/02/18 Date of : 36 Report #: [id number] LABORATORY DATA: Hemoglobin 7.8, hematocrit 23.9, MCV 78.1, and platelets 199. Sodium 134, potassium 4.3, chloride 101, bicarb 25, BUN 28, creatinine 1.2. INR 1.2. ASSESSMENT AND PLAN: This is a very pleasant 77-year-old gentleman with past medical history significant for esophageal adenocarcinoma, status post resection, hypertension, hyperlipidemia, coronary artery disease, and congestive heart failure, who is presenting for evaluation of worsening dyspnea on exertion and ankle swelling. The patient appears to have had mild exacerbation of his congestive heart failure. The gastrointestinal service has been consulted for evaluation of iron deficiency anemia. The patient has had multiple esophagogastroduodenoscopies and colonoscopies in the past. There are no signs of active bleeding at this time. Therefore, I would recommend outpatient esophagogastroduodenoscopy and capsule deployment for evaluation of the small bowel. Iron studies have been sent and these are pending and once these demonstrate iron deficiency anemia, I will have the patient set up for outpatient IV iron infusions. <ELECTRONICALLY SIGNED> By: Glenn Bashir MD 04/18/18 1252 1402 [id number] Bashir MD /nt
== END 2018-04-02 14:15 | disposition home or self-care (01) | DRG 177 ==
LOC: M.ERS 12:59 → M.TBA-ER 14:51 → M.2W 14:51
PROVIDERS: Family Medicine; ADMIT Internal Medicine
DX: J69.0 Pneumonitis due to inhalation of food and vomit (principal); I50.33 Acute on chronic diastolic (congestive) heart failure; J44.1 Chronic obstructive pulmonary disease with (acute) exacerbation; I11.0 Hypertensive heart disease with heart failure; E11.9 Type 2 diabetes mellitus without complications; K21.9 Gastro-esophageal reflux disease without esophagitis; I25.10 Atherosclerotic heart disease of native coronary artery without angina pectoris; E78.5 Hyperlipidemia, unspecified; D50.9 Iron deficiency anemia, unspecified; K44.9 Diaphragmatic hernia without obstruction or gangrene; Z79.82 Long term (current) use of aspirin; Z79.899 Other long term (current) drug therapy; Z85.01 Personal history of malignant neoplasm of esophagus; Z85.89 Personal history of malignant neoplasm of other organs and systems; Z79.84 Long term (current) use of oral hypoglycemic drugs; Z79.4 Long term (current) use of insulin; Z83.6 Family history of other diseases of the respiratory system; Z92.3 Personal history of irradiation; Z87.891 Personal history of nicotine dependence

== ENCOUNTER → 2018-04-09 | Outpatient (CLI) | payer MEDICARE, BC ==
[~2018-04-09] MED LIST changes: +ATIVAN0.5 MG PO
[2018-04-09 10:53] LABS: ALBUMIN 3.4 g/dL (3.4-5.0); HDL CHOLESTEROL 47 mg/dL (>40); SGPT 19 U/L (30-65); TOTAL PROTEIN 7.4 g/dL (6.4-8.2); TRIGLYCERIDE 48 mg/dL (<150); VLDL 10 mg/dL (<40)
[2018-04-09 11:09] LABS: ALKALINE PHOSPHATASE 94 U/L (46-116); ANION GAP 6 mmol/L (7-16); BUN 16 mg/dL (7-18); CALCIUM 9.4 mg/dL (8.5-10.1); CHLORIDE 100 mmol/L (98-107); CHOLESTEROL 89 mg/dL (<200); CO2 28 mmol/L (21-32); CREATININE 0.9 mg/dL (0.6-1.3); GLUCOSE 71 mg/dL (70-99); LDL CHOLESTEROL 33 mg/dL (<100); POTASSIUM 4.7 mmol/L (3.5-5.1); SGOT 25 U/L (15-37); SODIUM 134 mmol/L (136-145); TC:HDL 1.9 Ratio (Not establshd); TOTAL BILIRUBIN 0.7 mg/dL (<0.1-1.0)
[2018-04-09 11:11] LABS: SERUM ASSESSMENT Clear
== END ==
LOC: M.LAB 10:24
PROVIDERS: Nurse Practitioner Family
DX: I11.0 Hypertensive heart disease with heart failure (principal); I50.32 Chronic diastolic (congestive) heart failure; E78.5 Hyperlipidemia, unspecified

== ENCOUNTER → 2018-04-10 | Outpatient (CLI) | payer MEDICARE, BC ==
[2018-04-10 11:00] LABS: ABSOLUTE EOSINOPHILS 0.4 thou/uL (0.0-0.7); ABSOLUTE LYMPHOCYTES 0.6 thou/uL (0.8-5.3); ABSOLUTE MONOCYTES 0.5 thou/uL (0.0-1.2); ABSOLUTE NEUTROPHILS 3.4 thou/uL (1.6-8.1); BASOPHILS 0.9 %; EOSINOPHILS 7.3 %; HEMATOCRIT 29.6 % (42.0-52.0); HEMOGLOBIN 9.5 gm/dL (14.0-18.0); LYMPHOCYTES 12.3 %; MCH 26.4 pg (26.0-34.0); MCHC 32.1 g/dL (28.0-37.0); MCV 82.2 fL (80.0-100.0); MONOCYTES 9.7 %; NUCLEATED RBCS 0 /100WBC; PLATELET COUNT* 199 thou/uL (150-400); POLYS 69.8 %; RDW-CV 21.1 % (10.5-14.5); WBC 4.8 thou/uL (4.0-11.0)
[2018-04-10 12:18] LABS: HYPOCHROMASIA 1+; PLATELET ESTIMATE ADEQUATE; POLYCHROMASIA Occasional
[2018-04-10 12:19] LABS: ANISOCYTOSIS 1+; POIKILOCYTOSIS 1+
[2018-04-10 12:31] LABS: % SATURATION 14 % (20-39); IRON 45 ug/dL (50-175)
--- NOTE | 2018-04-15 21:22 | HEMONC ---
[address] [address] HEMATOLOGY ONCOLOGY NOTE Name: ISABELAWINDY AGUILAROXY Room: [facility]#: [id number] Admission: 04/10/18 Attend Phys: Jaclyn Bernardo MD Discharge: Date of : 38 Report #: [id number] THIS REPORT FOR: //name// CC: Jaclyn Dalal DATE OF SERVICE: 04/10/2018 DIAGNOSES: Iron deficiency anemia. SUBJECTIVE: The patient presented today as a hospital followup. HISTORY OF PRESENT ILLNESS: The patient was evaluated at [facility] and he was found to have anemia. His iron profile showed ferritin of 3400 with a TIBC 337 with low saturation and low iron. The patient's hemoglobin was 8.4. He received IV iron for 4 doses at 200 mg and his hemoglobin started to improve gradually. Upon discharge, it was 8.4. The patient stated that he felt significantly better, 75% of his energy is back. He denies any shortness of breath or fatigue. REVIEW OF SYSTEMS: All systems were reviewed. It was negative except the above. PAST, SOCIAL AND FAMILY HISTORY: Unchanged from previous visit. PHYSICAL EXAMINATION: VITAL SIGNS: Today, blood pressure 147/77, pulse 60, respirations 18, temperature is 97.0, saturation is 96% on room air. GENERAL: The patient was sitting in chair, was not in acute distress. LUNGS: Clear to auscultations bilaterally. HEART: Regular rate and rhythm. S1, S2 within normal limits. ABDOMEN: Soft, nontender, nondistended, bowel sounds positive. EXTREMITIES: No edema, no cyanosis, no clubbing. ASSESSMENT AND PLAN: 1. A 77-year-old male who has previously diagnosed with esophageal cancer; however, the patient was admitted for congestive heart failure and he was found to have anemia. He responded to IV iron. At this point, I would like to wait for complete workup including capsule endoscopy as an outpatient by Dr. Bashir. 2. We will check his CBC and iron profile and follow up in 6 weeks to evaluate any further iron as needed. <ELECTRONICALLY SIGNED> By: Jaclyn Bernardo MD 04/15/182121 1003 27Jaclyn Bernardo MD /nt
== END ==
LOC: M.RTH 04:49
PROVIDERS: Internal Medicine
DX: D50.9 Iron deficiency anemia, unspecified (principal)

== ENCOUNTER → 2018-05-18 | Outpatient (CLI) | payer MEDICARE, BC ==
[2018-05-18 11:15] LABS: ABSOLUTE EOSINOPHILS 0.5 thou/uL (0.0-0.7); ABSOLUTE LYMPHOCYTES 0.5 thou/uL (0.8-5.3); ABSOLUTE MONOCYTES 0.5 thou/uL (0.0-1.2); ABSOLUTE NEUTROPHILS 3.5 thou/uL (1.6-8.1); BASOPHILS 0.8 %; EOSINOPHILS 9.9 %; HEMATOCRIT 30.2 % (42.0-52.0); HEMOGLOBIN 9.8 gm/dL (14.0-18.0); LYMPHOCYTES 10.8 %; MCH 27.3 pg (26.0-34.0); MCHC 32.3 g/dL (28.0-37.0); MCV 84.4 fL (80.0-100.0); MONOCYTES 9.3 %; MPV 9.4 fl. (7.2-11.1); NUCLEATED RBCS 0 /100WBC; PLATELET COUNT* 186 thou/uL (150-400); POLYS 69.2 %; RBC 3.58 mil/uL (4.50-6.00); RDW-CV 22.5 % (10.5-14.5); WBC 5.1 thou/uL (4.0-11.0)
[2018-05-18 11:41] LABS: % SATURATION 13 % (20-39); IRON 41 ug/dL (50-175)
[2018-05-18 11:42] LABS: ANISOCYTOSIS 1+
== END ==
LOC: M.LAB 10:43
PROVIDERS: Internal Medicine
DX: D64.9 Anemia, unspecified (principal)

== ENCOUNTER → 2018-05-22 | Outpatient (CLI) | payer MEDICARE, BC ==
--- NOTE | ~2018-05-22 | HEMONC ---
[address] [address] HEMATOLOGY ONCOLOGY NOTE Name: ISABELAWINDY AGUILAROXY Room: [facility]#: [id number] Admission: 05/22/18 Attend Phys: Jaclyn Bernardo MD Discharge: Date of : 36 Report #: [id number] THIS REPORT FOR: //name// CC: Jaclyn Dalal DATE OF SERVICE: 05/22/2018 REASON FOR CONSULTATION: Iron-deficiency anemia. SUBJECTIVE: The patient presented today as a 6 weeks' followup. His hemoglobin has improved from 7.5 on the 03/30/2018 to 9.8 on 05/18/2018; however, on 05/14, it was 9.5. I also reviewed his iron profile including ferritin, which showed that his ferritin started to drop, at this point from the level of 258 to 91 ng/mL. The patient continues to feel fairly well. He denies any shortness of breath or lightheadedness. He denies any pica symptoms. REVIEW OF SYSTEMS: All systems reviewed, it was negative except the above. PAST MEDICAL HISTORY: Unchanged from previous visit. SOCIAL HISTORY: Unchanged from previous visit. FAMILY HISTORY: Unchanged from previous visit. PHYSICAL EXAMINATION: VITAL SIGNS: Today blood pressure is 115/73, pulse is 57, respirations 18, sats is 96%, temperature is 97.4. GENERAL: The patient was sitting in chair, was not in acute distress. LUNGS: Clear to auscultations bilaterally. HEART: Regular rate and rhythm. S1, S2 within normal limits. ABDOMEN: Soft, nontender, nondistended, bowel sounds positive. LABORATORY DATA: WBC 5.1, hemoglobin 9.8, platelets 186. His ferritin is 91, his saturation low at 13%, TIBC 315, iron low at 41. ASSESSMENT AND PLAN: A 77-year-old male who was previously evaluated because of iron deficiency anemia. The patient had a GI workup, which was unrevealing. He received IV iron with mild suboptimal response of his hemoglobin and his ferritin start to drop. At this point, I would like to arrange for 2 doses of Feraheme 510 mg and ____ IV 1 week apart. We will follow up with the patient with a CBC and iron profile in 6 weeks. By: [id number] Bernardo MD /nt
== END ==
LOC: M.RTH 04:33
DX: D50.9 Iron deficiency anemia, unspecified (principal)

== ENCOUNTER → 2018-05-24 | Outpatient (CLI) | payer MEDICARE, BC ==
[2018-05-24 09:30] VITALS: BP 119/59
--- NOTE | 2018-05-24 11:21 | NUR ---
ARRIVED AMBULATORY. MADE SELF COMFORTABLE IN RECLINER. PORT A CATH ACCESSED AND NOTED TO BE PATENT. INFUSION COMPLETED AND TOLERATED WELL. PORT FLUSHED AND DEACCESSED.
== END ==
LOC: M.INFUS 05:01
DX: D50.9 Iron deficiency anemia, unspecified (principal)

== ENCOUNTER → 2018-05-31 | Outpatient (CLI) | payer MEDICARE, BC ==
[2018-05-31 09:33] VITALS: BP 124/53
[2018-05-31 10:26] VITALS: BP 128/60
--- NOTE | 2018-05-31 10:38 | NUR ---
ARRIVED AMBULATORY. MADE SELF COMFORTABLE IN RECLINER. DENIES ADVERSE REACTION TO INFUSION OF SAME LAST WEEK. PORT A CATH ACCESSED WITH OUT DIFFICULTY. GOOD BRISK BLOOD RETURN NOTED AND FLUSHED WITH EASE. INFUSION COMPELTED AND TOLERATED WELL. PORT FLUSHED AND DEACCESED. DENEIS QUESTIONS OR NEEDS AT DISCHARGE.
== END ==
LOC: M.INFUS 01:35
DX: D50.9 Iron deficiency anemia, unspecified (principal)

== ENCOUNTER → 2018-06-25 | Outpatient (CLI) | payer MEDICARE, BC ==
[2018-06-25 14:50] LABS: ABSOLUTE EOSINOPHILS 0.3 thou/uL (0.0-0.7); ABSOLUTE LYMPHOCYTES 0.5 thou/uL (0.8-5.3); ABSOLUTE MONOCYTES 0.4 thou/uL (0.0-1.2); ABSOLUTE NEUTROPHILS 2.5 thou/uL (1.6-8.1); BASOPHILS 0.8 %; HEMATOCRIT 31.7 % (42.0-52.0); HEMOGLOBIN 10.4 gm/dL (14.0-18.0); LYMPHOCYTES 14.2 %; MCH 29.4 pg (26.0-34.0); MCV 89.3 fL (80.0-100.0); MONOCYTES 10.4 %; MPV 8.6 fl. (7.2-11.1); NUCLEATED RBCS 0 /100WBC; PLATELET COUNT* 170 thou/uL (150-400); POLYS 67.6 %; RBC 3.55 mil/uL (4.50-6.00); RDW-CV 22.6 % (10.5-14.5); WBC 3.7 thou/uL (4.0-11.0)
[2018-06-25 15:15] LABS: ANISOCYTOSIS 1+; HYPOCHROMASIA 1+; PLATELET ESTIMATE ADEQUATE
[2018-06-25 15:23] LABS: % SATURATION 19 % (20-39); IRON 49 ug/dL (50-175)
[2018-06-27 15:12] LABS: HGB SOLUBILITY Negative (Negative)
== END ==
LOC: M.LAB 14:28
PROVIDERS: Internal Medicine
DX: D50.9 Iron deficiency anemia, unspecified (principal)

== ENCOUNTER → 2018-07-03 | Outpatient (CLI) | payer MEDICARE, BC ==
--- NOTE | ~2018-07-03 | HEMONC ---
[address] [address] HEMATOLOGY ONCOLOGY NOTE Name: WINDY MAR Room: [facility]#: [id number] Admission: 07/03/18 Attend Phys: Jaclyn Bernardo MD Discharge: Date of : 38 Report #: [id number] THIS REPORT FOR: //name// CC: Jaclyn Maganae Sharondadakotadai DATE OF SERVICE: 07/03/2018 DIAGNOSIS: Anemia. SUBJECTIVE: The patient presented today as 2 months followup. He received 2 doses of Feraheme. The patient reported significant improvement in his energy level and fatigue. His hemoglobin on 06/25 improved to 10.4, which is better compared to 03/2018 when it was 7.5. However, I also reviewed his iron studies, which showed adequate ferritin level at the level of 317. The patient denies any blood in his stool. REVIEW OF SYSTEMS: All systems reviewed. It was negative except the above. PAST MEDICAL, SOCIAL AND FAMILY HISTORY: Unchanged from previous visit. PHYSICAL EXAMINATION: VITAL SIGNS: Today, blood pressure is 130/67, pulse 60, respirations 18, temperature is 97.0, saturations 97% on room air. GENERAL: The patient was sitting in a chair, was not in acute distress. LUNGS: Clear to auscultation bilaterally. HEART: Regular rate and rhythm. S1, S2 within normal limits. ABDOMEN: Soft, nontender, nondistended, bowel sounds positive. ASSESSMENT AND PLAN: A 77-year-old male who has been evaluated because of iron deficiency anemia. The patient had a recent EGD as a surveillance for esophageal cancer. The patient received IV iron and his hemoglobin has improved; however, it was in the suboptimal range. I do suspect with his current iron studies, I think he has adequate iron stores; however, other causes for anemia could be related to diabetes mellitus as a chronic disease. RECOMMENDATIONS: At this point, would like to continue to monitor the patient's hemoglobin in the next couple of months. We will obtain B12 and folic acid, occult blood before next visit. By: [id number] Bernardo MD /nt
== END ==
LOC: M.RTH 04:12
DX: D50.9 Iron deficiency anemia, unspecified (principal)

== ENCOUNTER 2018-07-18 22:36 | Inpatient (IN) | payer MEDICARE, BC ==
[~2018-07-18] VITALS: Ht 177.8 cm; Wt 86.6 kg
[2018-07-18 22:38] VITALS: BP 177/83
[2018-07-18] MEDS ORDERED: LASIX 20 MG TAB20 MG PO (22:41)
[2018-07-18 23:02] LABS: HEMATOCRIT 36.2 % (42.0-52.0); MCH 30.1 pg (26.0-34.0); MCHC 33.2 g/dL (28.0-37.0); MCV 90.8 fL (80.0-100.0); MPV 9.3 fl. (7.2-11.1); NUCLEATED RBCS 0 /100WBC; PLATELET COUNT* 219 thou/uL (150-400); RBC 3.99 mil/uL (4.50-6.00); RDW-CV 20.5 % (10.5-14.5); WBC 9.2 thou/uL (4.0-11.0)
[2018-07-18 23:13] LABS: ANION GAP 10 mmol/L (7-16); BUN 37 mg/dL (7-18); CALCIUM 9.8 mg/dL (8.5-10.1); CHLORIDE 100 mmol/L (98-107); CO2 29 mmol/L (21-32); CREATININE 1.3 mg/dL (0.6-1.3); GLUCOSE 86 mg/dL (70-99); POTASSIUM 4.1 mmol/L (3.5-5.1); SODIUM 139 mmol/L (136-145)
[2018-07-18 23:25] LABS: ABSOLUTE EOSINOPHILS 0.5 thou/uL (0.0-0.7); ABSOLUTE LYMPHOCYTES 0.7 thou/uL (0.8-5.3); ABSOLUTE MONOCYTES 0.2 thou/uL (0.0-1.2); ABSOLUTE NEUTROPHILS 7.8 thou/uL (1.6-8.1); ANISOCYTOSIS 1+; PLATELET ESTIMATE ADEQUATE
[2018-07-18 23:31] LABS: ALKALINE PHOSPHATASE 130 U/L (46-116); SGOT 20 U/L (15-37); SGPT 21 U/L (30-65); TOTAL BILIRUBIN 0.7 mg/dL (<0.1-1.0); TOTAL PROTEIN 8.7 g/dL (6.4-8.2); TROPONIN-I LEVEL <0.06 ng/mL (<0.06)
[2018-07-18 23:41] LABS: INFLUENZA A ANTIGEN None Detected (None Detect); INFLUENZA B ANTIGEN None Detected (None Detect)
[2018-07-18 23:44] LABS: URINE BILIRUBIN NEGATIVE (Negative); URINE BLOOD NEGATIVE (Negative); URINE CLARITY CLEAR; URINE COLOR YELLOW; URINE GLUCOSE-RANDOM NEGATIVE (Negative); URINE KETONES NEGATIVE (Negative); URINE LEUKOCYTES-REFLEX NEGATIVE (Negative); URINE NITRITE-REFLEX NEGATIVE (Negative); URINE PROTEIN 2+ (Negative)
[2018-07-19] VITALS (28 sets, daily range): BP systolic 75–137; BP diastolic 27–75
[2018-07-19 01:01] LABS: AMORPHOUS URATES Moderate /LPF (None Seen); BACTERIA-REFLEX 1-9 Few /HPF (None Seen); CASTS None Seen /LPF (None Seen); MUCUS None Seen strn/LPF (None Seen); SQUAMOUS 0-3 Few /LPF (0-3); URINE RBC 0-2 Rare /HPF (0-2); URINE WBC-REFLEX None Seen /HPF (0-5)
--- NOTE | 2018-07-19 06:08 | NUR ---
PATIENT ARRIVED TO UNIT AT 0525. PT ON BIPAP. ALERT ORIENTED X4. DENIES PAIN, N&V. PT ABLE TO TRANSFER HIMSELF TO ICU BED. PT BLOOD PRESSURE SOFT. WILL CONTINUE TO WATCH CLOSELY. CALL LIGHT WITHIN REACH. BED TO LOWEST POSITION. NO FAMILY PRESENT AT THIS TIME. PT VOICED UNDERSTANDING OF CURRENT MEDICAL PLAN OF CARE. NO FURTHER CONCERNS AT THIS TIME.
--- NOTE | 2018-07-19 08:30 | NUR ---
PT A/O X'S 4. CALM. 100% ON 50% FI02 ON BIPAP. AFEBRILE. PT HAS BLANCHABLE REDNESS ON COCCYX. BARRIER CREAM APPLIED AND PT REPOSITIONED WITH WEDGES. WILL CONTINUE PLAN OF CARE.
[2018-07-19 10:55] LABS: BE -1.8 mmol/L (-2 to +3); PCO2 35.4 mmHg (35.0-45.0); pH 7.416 (7.340-7.450)
[2018-07-19 10:57] LABS: PO2 152.4 mmHg (75.0-100.0)
--- NOTE | 2018-07-19 15:36 | EKG ---
[place] [address] ELECTROCARDIOGRAM REPORT Name: WINDY MAR Room: [address] ADM IN M.R.#: [id number] Admission: 07/19/18 Attend Phys: Bryce Lopez MD Discharge: Date of : 38 Report #: [id number] THIS REPORT FOR: //name// [facility] ED Test Date: 2018-07-18 Test Time: 22:56:02 Pat Name: WINDY MAR Department: Room: [facility] Gender: Organic Extractions Technician: Mariah LAUREN : 1940 Requested By: Jac Bill Order Number: [id number] MD: Tito Encarnacion Measurements Intervals [place] Rate: 85 P: 45 SC: 59 QRS: -9 QRSD: 89 T: 180 QT: 352 QTc: 419 Interpretive Statements Sinus rhythm Low voltage, extremity leads Nonspecific repol abnormality, diffuse leads Electronically Signed On 07-19-2018 15:36:02 GAS APPLIANCE ADJUSTER by Tito Encarnacion [email or web address] <ELECTRONICALLY SIGNED> By: Tito Encarnacion MD, [facility] 07/19/18 1536 [id number] Tito Encarnacion MD, FACC /EPI
--- NOTE | 2018-07-19 18:45 | NUR ---
PT ON 4L NC SATTING 97% - 100%. PT REPOSITIONED. PT TOLERATING DIET. PT ON 1MCG OF LEVOPHED. DURING TITRATION OF LEVOPHED HIGHEST DOSAGE WAS 3 MCG.
--- NOTE | 2018-07-19 20:37 | NUR ---
turned off levo @ 2015. bp 121/55 (70).
[2018-07-20] VITALS (21 sets, daily range): BP systolic 96–146; BP diastolic 39–78
--- NOTE | 2018-07-20 05:34 | NUR ---
patient progressing towards goals. states he feels alot better. took pt off levo at beginning of shift. has maintained bp map >65. pt able to sleep most of the night. denies pain, n&v. pt stated he had an old pressure wound on his bottom. took pictures and consulted wound nurse. pt has been off his back all throughout shift. pt turns well wedges used. no voiced concerns at this time will continue to monitor.
--- NOTE | 2018-07-20 08:27 | CON ---
[address] [address] CONSULTATION Name: ISABELAWINDY DURAN Room: [address] IN M.R.#: [id number] Admission: 07/19/18 Attend Phys: Bryce Lopez MD Discharge: Date of : 38 Report #: [id number] THIS REPORT FOR: //name// CC: Moody Harmon MD DATE OF SERVICE: 07/19/2018 ATTENDING PHYSICIAN: Bryce Lopez MD LOCATION: ICU, bed 2. INDICATION FOR CONSULTATION: Hypoxemia, CHF, fever. CLINICAL SUMMARY: The patient is a 77-year-old male, a remote smoker, who was admitted to the hospital yesterday with multiple medical problems. The patient developed fever of 101 degrees it appears in the afternoon or evening hours. He also had a nonproductive cough and some shortness of breath. He appeared to have some nausea, but he is keeping food and liquids down. The patient does have a history of COPD, but he is not on oxygen at home. He tried a couple of breathing treatments, did not seem to help alleviate his pain or his dyspnea, because of the bad weather did not have a ride in to the hospital, so called EMS and they transported him into the Emergency Room from his home in [place], [place]. The patient was on BiPAP over the evening and he seemed to be oxygenating better and he had less work of breathing. He was then taken off BiPAP this morning, placed on 4 liters. He is saturating 98%. His temperature was 101 degrees when he came into the Emergency Room and now it is down to 37 degrees. Denies any history of chest pain or any peripheral edema, question whether he is still intermittently aspirating from his esophageal CA in the past. PAST MEDICAL HISTORY: Long and involved, please see old records. He has had a history of esophageal cancer treated at [facility] with radiation and chemotherapy. It appears he may be doing some homeopathic therapy in the meantime. He does have a Port-A-Cath in his right chest and has kept that. He also has a history of COPD, but has not been oxygen or steroid dependent. He had a history of esophageal strictures and intermittent aspiration, had to be dilated in 12/2016. He had a PEG tube at that point in time; the PEG tube has since been removed over the last year to year and a half. He has also had a chronic right pleural effusion that was treated with a talc injection also in 2017 at [facility]; I do not know whether that was a malignant or just an inflammatory fluid. Other medical problems include hypertension, hiatal hernia, insulin-dependent diabetes mellitus, hyperlipidemia and previous surgeries include left carotid artery 60% blockage with stent placement. Again, he had an [facility] [address] [place] [address] CONSULTATION Name: ISABELAWINDY Room: [address] IN ..#: [id number] Admission: 07/19/18 Attend Phys: Bryce Lopez MD Discharge: Date of : 38 Report #: [id number] esophageal stricture and may have had local resection, also had local dilatation in 12/2016. Also appears to have iron deficiency anemia and has iron infusions. ALLERGIES: He has no known medical allergies. OUTPATIENT MEDICATIONS: Include metoprolol 25 mg b.i.d., simvastatin 20 mg at bedtime, gabapentin 300 mg at bedtime, Restoril 15 mg as needed, glipizide 5 mg b.i.d., albuterol inhaler, nebulizer treatments at home, furosemide or Lasix 20 mg once daily. In the hospital, he has received some IV Lasix and also on sliding scale insulin, also is on cefepime 1 gram b.i.d. and levofloxacin 750 mg daily. Just this morning he has been on low-dose Levophed at about 4 mcg for some soft blood pressure of 90/50 with a MAP of between 55 and 60. He is on Solu-Medrol 62.5 q.8 hours and DuoNeb treatments. FAMILY HISTORY: Negative for premature cardiopulmonary disease or for esophageal or lung cancer. SOCIAL HISTORY: He has a prior 30-40-pack year history of smoking, states he quit smoking and drinking about 10 years ago altogether. He lives, I think, by himself in [place], [place] and he has a friend who lives in [place] who helps him out somewhat. Denies any illicit drug use. REVIEW OF SYSTEMS: A 14-point review of systems again was reviewed and negative except for pertinent positives noted in HPI. PHYSICAL EXAMINATION: GENERAL: Talkative 77-year-old male, in no acute distress. He has just been off the BiPAP for an hour or two and he is alert and awake and talkative. VITAL SIGNS: Blood pressure is 110/54 on 4 mcg of Levophed. His heart rate is in the 60s, respirations are 16 and nonlabored, and temperature is 36 degrees at this time. Saturation on 4 liters 97%. He is 5 feet 10 inches tall, weight 78 kg or 174 pounds and BMI is 25. HEENT: Pupils are midpoint and reactive. Mucous membranes appear moist. He is lying flat in bed. No increase in jugular venous pressure. NECK: No cervical or supraclavicular adenopathy. CHEST: Shows some rhonchi and expiratory wheeze at the right lung base. Prolonged expiratory phase noted. Left chest relatively clear, again with prolonged expiratory phase noted. CARDIOVASCULAR: Regular rate and rhythm without murmur, gallop or rub. Heart rate 66 and no S3 is noted. ABDOMEN: Soft, without masses or megaly. Old PEG tube site is noted. No ascites is noted. EXTREMITIES: He has 1-2+ edema. Peripheral pulses are 2+. Moves all fours to commands. NEUROLOGIC: Nonfocal and intact. [place]IN: [place] [address] CONSULTATION Name: ISABELAWINDY Room: [address] IN [facility].#: [id number] Admission: 07/19/18 Attend Phys: Bryce Lopez MD Discharge: Date of : 38 Report #: [id number] LABORATORY DATA: From 07/18/2018 late in the evening shows hemoglobin 12, white count 9200, normal differential, platelets 219,000, MCV is 90. Sodium is 139, potassium is 4.1, carbon dioxide slightly elevated at 29, BUN 37, creatinine 1.3, GFR is 53 and ALT is low normal, alkaline phosphatase slightly elevated at 130. Albumin is 4.0. ABGs this morning on 50% BiPAP at 16/8 with a backup rate of 16 shows pO2 of 152, pH 7.41, pCO2 is 35, bicarbonate 22 and sats 98%. Chest x-ray shows chronic right pleural thickening and maybe chronic right pleural effusion or pleural thickening, some fluid overload initially on his chest x-ray, but after one dose of Lasix appears relatively clear at this time, COPD and hyperinflation is noted. Heart size appears to be normal. I do not have an echo on him. IMPRESSION: 1. Acute hypoxic respiratory failure. Acute bronchitis with bronchospasm. 2. Mild fluid overload. 3. Hypotension, could be related to infection and fever. 4. History of esophageal cancer. I wonder if he still has intermittent aspiration. 5. Previous talc pleurodesis right lung and with right pleural space, etiology unclear. PLAN: Would continue with steroids, antibiotics and low-dose pressors. Watch him in the unit. He appears to be doing comfortable off the BiPAP. His flu workup was negative, other serology is pending. Would continue with cefepime and Levaquin for the antibiotics. We will see how he progresses in another day or two and then see where we need to go from there. I am not certain whether he will need supplemental oxygen at home. We will obtain his old records in the meantime. This has been a 36 minute critical care consult. <ELECTRONICALLY SIGNED> By: Martín Beckwith MD 07/20/18 0827 [id number] [id number] Beckwith MD /nt
--- NOTE | 2018-07-20 10:34 | NUR ---
Nutrition: Pt admitted with PNA. Has moderate COPD. On CHO controlled diet. RX: insulin, solumedrol. Per progress note, will taper off steroids soon. Wound is on coccyx. Labs: BG 195, albumin 4. Wt is near usual, 172#. Usual is 175-185#. Per ICU rounds, he is eating well. No nutrition interventions needed at this time. Low risk. GOALS: good BG control.
--- NOTE | 2018-07-20 10:55 | NUR ---
SPOKE WITH PT. PT LIVES ALONE, HE SAID HE HAS BEEN ACTIVE AND INDEP INCLUDING DRIVING. PT STATES HE IS NEVER HOME, 'I AM ALWAYS OUT AND ABOUT.' PT HAS NO DME AT HOME. PT DENIES ANY DISCHARGE NEEDS. NO FAMILY HERE AT THIS TIME BUT PT'S SIGNIFICANT OTHER CALLED SEVERAL TIMES YESTERDAY TO CHECK ON HIM. DISCUSSED ROLE OF CASE MGT, WILL CONTINUE TO FOLLOW.
--- NOTE | 2018-07-20 11:28 | NUR ---
WOUND CARE NOTE: CONSULT RECEIVED FOR COCCYX WOUND PATIENT PRESENTS WITH A HEALING STAGE 2 PRESSURE ULCER TO HIS COCCYX. PATIENT STATES HE HAS HAD IT OFF AND ON FOR YEARS. WOUND MEASURES 0.3X0.3X0.1. NASIR-WOUND IS MACERATED. WOUND BED IS MOIST, PINK. APPLIED BARRIER OINTMENT. EDUCATED PATIENT ON TURNING AND KEEPING OFF THE WOUND, COMMUNICATED UNDERSTANDING. RECOMMEND TURN Q2 HOURS WAFFLE CUSHION WHEN IN CHAIR ENCOURAGE GOOD NUTRTION/HYDRATION TIGHT BLOOD GLUCOSE CONTROL
--- NOTE | 2018-07-20 15:05 | NUR ---
PT ON ROOM AIR 93%. PT SITTING IN CHAIR WITH WAFFEL CUSHION. VSS. AFEBRILE. PT TOLERATING DIET. PT TELEMETRY STATUS.
--- NOTE | 2018-07-20 18:30 | NUR ---
pt transfered to room 219 at approx 1745 from ICU, pt a/o x4, denies pain, lungs clear, pt on RA, sats 93%, VSS, previous assesment reviewed and this RN agrees with charting. pt sitting in chair, eating dinner. will continue with plan of care
[2018-07-21] VITALS: BP 139/65
[2018-07-21 04:00] VITALS: BP 123/57
[2018-07-21 04:56] LABS: HEMATOCRIT 28.3 % (42.0-52.0); MCHC 33.3 g/dL (28.0-37.0); MCV 90.3 fL (80.0-100.0); MPV 9.9 fl. (7.2-11.1); RBC 3.13 mil/uL (4.50-6.00); RDW-CV 19.9 % (10.5-14.5); WBC 11.8 thou/uL (4.0-11.0)
[2018-07-21 05:09] LABS: HEMOGLOBIN 9.4 gm/dL (14.0-18.0)
--- NOTE | 2018-07-21 05:19 | NUR ---
RECEIVED REPORT AND ASSUMED CARE AT 1900. VSS. CARDIAC MONITORING IN PLACE. PT DENIES COMPLAINTS OF PAIN. ASSESSMENT COMPLETED CHARTED. DISCUSSED PLAN OF CARE WITH PT, VERBALIZED UNDERSTANDING. PT UP SBA, ON RA. BED LOCKED IN LOWEST POSITION, CALL LIGHT WITHIN REACH. HOURLY ROUNDING COMPLETED AND ALL NEEDS MET. POSITION CHANGED EVERY TWO HOURS, OFF LOADING. PT TURNING SELF. NURSING WILL CONTINUE TO MONITOR
[2018-07-21 05:28] LABS: CALCIUM 9.2 mg/dL (8.5-10.1); CREATININE 1.5 mg/dL (0.6-1.3); MAGNESIUM 1.7 mg/dL (1.8-2.4); POTASSIUM 4.3 mmol/L (3.5-5.1); TOTAL BILIRUBIN 0.5 mg/dL (<0.1-1.0); TOTAL PROTEIN 7.1 g/dL (6.4-8.2)
[2018-07-21 08:27] VITALS: BP 142/74
[2018-07-21 12:00] VITALS: BP 151/53
--- NOTE | 2018-07-21 12:02 | NUR ---
PT ALERT AND ORIENTED. TELE TRACKING NSR AND ALL VSS ON ROOM AIR. PT DENIES CP, DOES EXPERIENCE SOME ENRIQUEZ, BUT RECOVERS QUICKLY. HE HAS BEEN AMBULATING WITHOUT DIFFICULTY IN ROOM, UP IN CHAIR. COCCYX WITH SOME REDNESS- PT APPLIES BARRIER CREAM NEEDED. C/O CONSTIPATION-MEDICATED PER EMAR. EDUCATED ON SAFETY AND PLAN OF CARE. PLEASE SEE ASSESSMENT FOR ADDITIONAL INFORMATION. WILL CONTINUE TO MONITOR
[2018-07-21 16:00] VITALS: BP 143/78
[2018-07-21 17:16] VITALS: BP 148/78
[2018-07-22 01:06] VITALS: BP 136/66
--- NOTE | 2018-07-22 01:53 | NUR ---
RECEIVED REPORT AND ASSUMED CARE AT 1900. VSS. CARDIAC MONITORING IN PLACE. PT DENIES ANY COMPLAINTS OF PAIN. PT REPORTED CONSTIPATION, PRN MEDICATION ADMIN PER ORDERS. ASSESSMENT COMPLETED CHARTED. PT UP AD LEODAN IN ROOM, ON RA. BED LOCKED IN LOWEST POSITION, CALL LIGHT WITHIN REACH. DISCUSSED PLAN OF CARE WITH PT, VERBALIZED UNDERSTANDING. WILL CONTINUE TO MONITOR
[2018-07-22 04:41] LABS: HEMATOCRIT 28.9 % (42.0-52.0); HEMOGLOBIN 9.7 gm/dL (14.0-18.0); MCH 30.4 pg (26.0-34.0); MCHC 33.5 g/dL (28.0-37.0); MCV 90.8 fL (80.0-100.0); MPV 9.4 fl. (7.2-11.1); RBC 3.18 mil/uL (4.50-6.00); RDW-CV 19.9 % (10.5-14.5); WBC 11.7 thou/uL (4.0-11.0)
[2018-07-22 05:05] LABS: CALCIUM 9.6 mg/dL (8.5-10.1); CREATININE 1.2 mg/dL (0.6-1.3); MAGNESIUM 1.7 mg/dL (1.8-2.4); POTASSIUM 4.4 mmol/L (3.5-5.1); TOTAL BILIRUBIN 0.6 mg/dL (<0.1-1.0); TOTAL PROTEIN 6.8 g/dL (6.4-8.2)
[2018-07-22 05:06] VITALS: BP 143/68
[2018-07-22 07:50] VITALS: BP 142/72
--- NOTE | 2018-07-22 09:19 | NUR ---
PT ALERT AND ORIENTED. TELE TRACKING NSR AND ALL VSS ON ROOM AIR. BLOOD SUGAR AT BREAKFAST TIME 69- PT ASYMPTOMATIC, PROVIDED PT ORANGE JUICE AND BREAKFAST TRAY. PT DENIES CP, SOA AT REST. EDUCATED ON SAFETY AND PLAN OF CARE. PLEASE SEE ASSESSMENT FOR ADDITIONAL INFORMATION. WILL CONTINUE TO MONITOR
[2018-07-22] MEDS ORDERED: AMOXICILLIN 50500 MG PO (13:44)
[2018-07-22] MEDS ORDERED: PREDNISONE 10 M10 MG PO (13:46)
[2018-07-22] MEDS ORDERED: ALBUTEROL2.5 MG/31 INH (13:48)
[2018-07-22 14:01] VITALS: BP 142/72
[2018-07-22] MEDS ORDERED: ATIVAN0.5 MG PO (14:01)
--- NOTE | 2018-07-23 07:54 | CON ---
[address] [address] CONSULTATION Name: ISABELAWINDY AGUILAROXY Room: [address] IN M.R.#: [id number] Admission: 07/19/18 Attend Phys: Bryce Lopez MD Discharge: 07/22/18 Date of : 38 Report #: [id number] THIS REPORT FOR: //name// CC: Moody Kirandai Bryce Lopez DATE OF SERVICE: 07/20/2018 ATTENDING PHYSICIAN: Dr. Cottrell. REASON FOR EVALUATION: Pneumonitis. HISTORY OF PRESENT ILLNESS: Chart reviewed, the patient examined. This is a 77-year-old gentleman, known to myself, had seen in 2017, has a history of recurrent pneumonitis, also associated with effusions, and was confirmed to have esophageal cancer and underwent pleurodesis. The patient has COPD, who presented with a fever, associated productive cough, progressive dyspnea. Due to the severity of his illness and his oxygen requirements, he was admitted to the Intensive Care Unit, treated with pressors as well. At this point, he has been weaning off the oxygen, has a persistent cough, has improved mental status. Cultures are pending. Empirically started on cefepime as well as levofloxacin. Cultures of the blood are sterile thus far. Urinary antigens are pending. Sputum cultures have been ordered as well. ALLERGIES: None known. MEDICATIONS: Methylprednisolone, docusate sodium, enoxaparin, lorazepam, insulin glargine, gabapentin, atorvastatin, cefepime, insulin sliding scale, levofloxacin, pantoprazole, aspirin, temazepam, ipratropium/albuterol inhaler, ferumoxytol. PAST MEDICAL HISTORY: Hypertension, diabetes mellitus type 2, hiatal hernia, reflux, hyperlipidemia, esophageal cancer, recurrent pneumonia with effusions, iron deficiency anemia. SOCIAL HISTORY: Nonsmoker, no ethanol. FAMILY HISTORY: Noncontributory. REVIEW OF SYSTEMS: Denies any significant gastrointestinal-related complaints, otherwise unremarkable 10-point review of systems unless otherwise noted in the history of present illness. PHYSICAL EXAMINATION: GENERAL: He is pleasant, alert, cooperative, appears chronically ill, [place] [address] CONSULTATION Name: WINDY MAR Room: [address]#: [id number] Admission: 07/19/18 Attend Phys: Bryce Loepz MD Discharge: 07/22/18 Date of : 38 Report #: [id number] VITAL SIGNS: Temperature 98.7, pulse 85, respirations 20, blood pressure 123/39. SKIN: Warm, dry, no rashes. Somewhat pale. HEENT: Normocephalic. Extraocular muscles intact. NECK: Supple. LUNGS: Diminished breath sounds. SKIN: Scattered crackles at the bases. HEART: Regular. I do not appreciate any murmur. ABDOMEN: Soft, mildly distended. There are no peritoneal signs. EXTREMITIES: Lower extremities otherwise unremarkable. GENITOURINARY: Deferred. RECTAL: Deferred. LABORATORY DATA: Blood cultures collected on 2 occasions from the 6th and 7th are sterile thus far. Lactic acid up to 2.5. Chest x-ray showed interstitial infiltrate, some residual atelectasis and infiltrate, small effusions. ABGs, pH 7.416, pCO2 of 35.4, pO2 of 152.4, that was on BiPAP, FiO2 of 40%. Urinalysis, no white cells, 1-9 bacteria. Influenza antigen was negative. Electrolytes: Sodium 139, potassium 4.1, chloride 100, bicarbonate 29, anion gap of 10, BUN and creatinine 37 and 1.3, glucose of 86. LFTs otherwise unremarkable, total protein 8.4, albumin of 4.0. Estimated GFR 53. CBC: White count 9.2, H and H 12.0 and 36.2, platelets of 219. ASSESSMENT: Pneumonitis. The patient with recurrent problems. Certainly has abnormal esophagus and risk for aspiration. At this point, he is not overtly critically ill. We will continue empiric antimicrobial therapy. Await results, may well not have a microbiology confirmed etiology as he has responded fairly quickly given the severity of his illness at this point, which raises a question of a separate diagnosis. We will see how he does clinically in the next 24-48 hours. <ELECTRONICALLY SIGNED> By: Reji Tate MD 07/23/18 0754 1804 [id number] Tate MD /nt
--- NOTE | 2018-07-25 09:43 | NUR ---
NURSING CONTACTED DOUGLAS,STATING PT.HAD CALLED AND WAS ANGRY THAT NEBULIZER HAD NOT BEEN DELIVERED. PT.DISCHARGED ON MONDAY. NURSING MIX MAKER ORDERED NEBULIZER THROUGH [facility]. CM CALLED [facility]. SHE SAID PERSONNEL QUALITY ASSURANCE AUDITOR TRIED TO DELIVER YESTERDAY BUT PT.NOT HOME. HE LEFT A NOTE ON THE DOOR. IT WILL BE DELIVERED TODAY. CALLED PT.ON HOME PHONE. HAD TO LEAVE VM REGARDING ABOVE. LEFT MY PHONE NUMBER FOR CALL BACK IF HE SHOULD HAVE ANY QUESTIONS.
== END 2018-07-22 15:00 | disposition home or self-care (01) | DRG 871 ==
LOC: M.ERS 22:36 → M.TBA-ER 23:54 → M.ERS 07-19 01:11 → M.ICU 07-19 05:04 → M.TBA-ER 07-19 05:04 → M.ICU 07-19 05:13 → M.2W 07-20 17:40
PROVIDERS: Emergency Medicine Emergency Medical Services; Family Medicine; ADMIT Family Medicine
PROC: 5A09357 Assistance with Respiratory Ventilation, Less than 24 Consecutive Hours, Continuous Positive Airway Pressure (ICD-10-PCS; principal; 2018-07-19)
DX: A41.9 Sepsis, unspecified organism (principal); R65.21 Severe sepsis with septic shock; J15.6 Pneumonia due to other Gram-negative bacteria; J96.01 Acute respiratory failure with hypoxia; J69.0 Pneumonitis due to inhalation of food and vomit; J44.0 Chronic obstructive pulmonary disease with (acute) lower respiratory infection; J44.1 Chronic obstructive pulmonary disease with (acute) exacerbation; I50.32 Chronic diastolic (congestive) heart failure; E87.2 Acidosis; E44.0 Moderate protein-calorie malnutrition; K21.9 Gastro-esophageal reflux disease without esophagitis; J20.9 Acute bronchitis, unspecified; I11.0 Hypertensive heart disease with heart failure; E78.5 Hyperlipidemia, unspecified; L89.150 Pressure ulcer of sacral region, unstageable; E11.65 Type 2 diabetes mellitus with hyperglycemia; I27.20 Pulmonary hypertension, unspecified; Z68.27 Body mass index [BMI] 27.0-27.9, adult; Z85.01 Personal history of malignant neoplasm of esophagus; Z92.3 Personal history of irradiation; Z92.21 Personal history of antineoplastic chemotherapy; Z87.891 Personal history of nicotine dependence; Z79.4 Long term (current) use of insulin; Z79.82 Long term (current) use of aspirin; Z79.899 Other long term (current) drug therapy

== ENCOUNTER → 2018-08-27 | Outpatient (CLI) | payer MEDICARE, BC ==
[~2018-08-27] MED LIST changes: +ALBUTEROL2.5 MG/31 INH; +AMOXICILLIN 50500 MG PO; +LASIX 20 MG TAB20 MG PO; +PREDNISONE 10 M10 MG PO
[2018-08-27 13:16] LABS: ABSOLUTE EOSINOPHILS 0.1 thou/uL (0.0-0.7); ABSOLUTE LYMPHOCYTES 0.6 thou/uL (0.8-5.3); ABSOLUTE MONOCYTES 0.5 thou/uL (0.0-1.2); ABSOLUTE NEUTROPHILS 3.4 thou/uL (1.6-8.1); BASOPHILS 0.5 %; EOSINOPHILS 2.4 %; HEMOGLOBIN 10.6 gm/dL (14.0-18.0); LYMPHOCYTES 12.5 %; MCH 30.9 pg (26.0-34.0); MCHC 33.3 g/dL (28.0-37.0); MCV 92.8 fL (80.0-100.0); MONOCYTES 10.4 %; MPV 8.8 fl. (7.2-11.1); NUCLEATED RBCS 0 /100WBC; PLATELET COUNT* 155 thou/uL (150-400); POLYS 74.2 %; RBC 3.44 mil/uL (4.50-6.00); RDW-CV 17.2 % (10.5-14.5); WBC 4.6 thou/uL (4.0-11.0)
[2018-08-27 14:30] LABS: % SATURATION 18 % (20-39); IRON 43 ug/dL (50-175)
== END ==
LOC: M.LAB 12:45
PROVIDERS: Internal Medicine
DX: D50.9 Iron deficiency anemia, unspecified (principal)

== ENCOUNTER → 2018-09-04 | Outpatient (CLI) | payer MEDICARE, BC ==
--- NOTE | 2018-09-07 08:49 | HEMONC ---
[address] [address] HEMATOLOGY ONCOLOGY NOTE Name: ISABELAWINDY AGUILAROXY Room: [facility]#: [id number] Admission: 09/04/18 Attend Phys: Jaclyn Bernardo MD Discharge: Date of : 38 Report #: [id number] THIS REPORT FOR: //name// CC: Jaclyn Dalal DATE OF SERVICE: 09/04/2018 DIAGNOSIS: Anemia. SUBJECTIVE: The patient presented today as a 2-month followup. He continues to feel very well. He received IV iron. He has a very good level of energy. The patient denies any blood in the stool. REVIEW OF SYSTEMS: All systems reviewed. It was negative except for the above. MEDICATIONS: Has been reviewed. PHYSICAL EXAMINATION: VITAL SIGNS: Blood pressure is 145/77, pulse is 55, respirations 18, temperature is 96.5, saturations 94% on room air. GENERAL: The patient was sitting in chair, was not in acute distress. LUNGS: Clear to auscultations bilaterally. HEART: Regular rate and rhythm. S1, S2 within normal limits. ABDOMEN: Soft, nontender, nondistended, bowel sounds positive. LABORATORY DATA: On 08/27/2018, hemoglobin improved to 10.6, platelets 155. His iron studies showed ferritin of 191, TIBC 245. ASSESSMENT AND PLAN: A 77-year-old male diagnosed with iron deficiency anemia. The patient received IV iron; however, at this point, his iron stores have been adequate. Other cause is related to chronic disease like diabetes mellitus. At this point, I would like to monitor the patient every 6 months with labs. The patient had elevated B12 levels. I advised him to cut down on his supplements. <ELECTRONICALLY SIGNED> By: Jaclyn Bernardo MD 09/07/18 0849 1014 [id number] Bernardo MD /nt
== END ==
LOC: M.RTH 04:49
DX: D50.9 Iron deficiency anemia, unspecified (principal)

== ENCOUNTER 2018-12-01 07:27 | Emergency (ER) | payer MEDICARE, BC ==
[~2018-12-01] VITALS: Ht 177.8 cm; Wt 77.1 kg
[2018-12-01 08:15] LABS: HEMATOCRIT 32.6 % (42.0-52.0); HEMOGLOBIN 10.7 gm/dL (14.0-18.0); MCH 30.5 pg (26.0-34.0); MCV 92.5 fL (80.0-100.0); MPV 9.8 fl. (7.2-11.1); RBC 3.52 mil/uL (4.50-6.00); RDW-CV 15.7 % (10.5-14.5); WBC 5.8 thou/uL (4.0-11.0)
[2018-12-01 08:22] LABS: ANION GAP 11 mmol/L (7-16); BUN 24 mg/dL (7-18); CALCIUM 9.5 mg/dL (8.5-10.1); CHLORIDE 105 mmol/L (98-107); CO2 27 mmol/L (21-32); CREATININE 1.2 mg/dL (0.6-1.3); GLUCOSE 109 mg/dL (70-99); POTASSIUM 4.4 mmol/L (3.5-5.1); SODIUM 143 mmol/L (136-145)
[2018-12-01 08:31] LABS: TROPONIN-I LEVEL <0.06 ng/mL (<0.06)
[2018-12-01 11:25] VITALS: BP 160/73
[2018-12-01 12:19] LABS: ALBUMIN 3.8 g/dL (3.4-5.0); DIRECT BILIRUBIN 0.3 mg/dL (<0.1-0.3); TOTAL BILIRUBIN 1.4 mg/dL (<0.1-1.0); TOTAL PROTEIN 7.6 g/dL (6.4-8.2)
--- NOTE | 2018-12-03 14:32 | EKG ---
[place] [address] ELECTROCARDIOGRAM REPORT Name: WINDY MAR [id number] Admission: 12/01/18 Attend Phys: Discharge: 12/01/18 Date of : 36 Report #: [id number] THIS REPORT FOR: //name// [facility] ED Test Date: 2018-12-01 Test Time: 08:26:40 Pat Name: WINDY MAR Department: Room: Gender: M Scouts: [facility] : 1940 Requested By: Jac Bill Order Number: [id number] MD: Tito Encarnacion Measurements Intervals [place] Rate: 61 P: 16 NV: 196 QRS: 50 QRSD: 151 T: 2 QT: 480 QTc: 484 Interpretive Statements Sinus rhythm Right bundle branch block Compared to ECG 07/18/2018 22:56:02 Right bundle-branch block now present Early repolarization no longer present Electronically Signed On 12-03-2018 14:31:51 CDT by Tito Encarnacion [email or web address] <ELECTRONICALLY SIGNED> By: Tito Encarnacion MD, [facility] 12/03/18 1431 5 5 Tito Encarnacion MD, FAC /EPI
== END 2018-12-01 11:40 | disposition still patient (30) ==
LOC: M.ERS 07:27 → M.GI 07:27 → M.ERS 11:40
PROVIDERS: Emergency Medicine Emergency Medical Services; Internal Medicine Gastroenterology
DX: T18.128A Food in esophagus causing other injury, initial encounter (principal); I10 Essential (primary) hypertension; E11.9 Type 2 diabetes mellitus without complications; K21.9 Gastro-esophageal reflux disease without esophagitis; J44.9 Chronic obstructive pulmonary disease, unspecified; E78.5 Hyperlipidemia, unspecified; Z87.891 Personal history of nicotine dependence; Z85.01 Personal history of malignant neoplasm of esophagus; Z87.01 Personal history of pneumonia (recurrent); Z86.2 Personal history of diseases of the blood and blood-forming organs and certain disorders involving the immune mechanism; X58.XXXA Exposure to other specified factors, initial encounter; Y93.89 Activity, other specified; Y92.89 Other specified places as the place of occurrence of the external cause; Y99.8 Other external cause status

== ENCOUNTER → 2019-02-13 | Outpatient (CLI) | payer MEDICARE, BC ==
[2019-02-13 11:21] LABS: ABSOLUTE BASOPHILS 0.1 thou/uL (0.0-0.2); ABSOLUTE EOSINOPHILS 0.2 thou/uL (0.0-0.7); ABSOLUTE LYMPHOCYTES 0.5 thou/uL (0.8-5.3); ABSOLUTE MONOCYTES 0.6 thou/uL (0.0-1.2); ABSOLUTE NEUTROPHILS 6.6 thou/uL (1.6-8.1); BASOPHILS 0.8 %; HEMATOCRIT 33.9 % (42.0-52.0); HEMOGLOBIN 11.1 gm/dL (14.0-18.0); LYMPHOCYTES 6.7 %; MCH 30.6 pg (26.0-34.0); MCHC 32.9 g/dL (28.0-37.0); MCV 93.1 fL (80.0-100.0); MONOCYTES 7.6 %; MPV 9.2 fl. (7.2-11.1); NUCLEATED RBCS 0 /100WBC; PLATELET COUNT* 191 thou/uL (150-400); POLYS 81.9 %; RBC 3.64 mil/uL (4.50-6.00); RDW-CV 15.4 % (10.5-14.5)
[2019-02-13 12:08] LABS: % SATURATION 18 % (20-39); IRON 42 ug/dL (50-175)
== END ==
LOC: M.LAB 10:58
PROVIDERS: Internal Medicine
DX: D50.9 Iron deficiency anemia, unspecified (principal)

== ENCOUNTER → 2019-03-05 | Outpatient (CLI) | payer MEDICARE, BC ==
--- NOTE | 2019-03-06 12:15 | HEMONC ---
[address] [address] HEMATOLOGY ONCOLOGY NOTE Name: WINDY MAR Room: [facility]#: [id number] Admission: 03/05/19 Attend Phys: Jaclyn Bernardo MD Discharge: Date of : 36 Report #: [id number] THIS REPORT FOR: //name// CC: Jaclyn Dalal DO DATE OF SERVICE: 03/05/2019 DIAGNOSIS: Anemia. PRIMARY CARE PHYSICIAN: Dr. Moody Dalal. SUBJECTIVE: The patient presented today as 6 months' followup. He has been doing very well except for he feels some generalized weakness at his legs. Otherwise, he continues to be active. 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 The patient denies any cough, shortness of breath. REVIEW OF SYSTEMS: All systems are reviewed. It was negative except the above. PAST MEDICAL, SOCIAL AND FAMILY HISTORY: Unchanged from last visit. MEDICATIONS: List has been reviewed. PHYSICAL EXAMINATION: VITAL SIGNS: Today, blood pressure is 128/70, respirations 18, sats is 98% on room air, temperature is 97.0. GENERAL: The patient was sitting in chair, was not in acute distress. LUNGS: Clear to auscultations bilaterally. HEART: Regular rate and rhythm. S1, S2 within normal limits. ABDOMEN: Soft, nontender, nondistended, bowel sounds positive. EXTREMITIES: No edema, no cyanosis, no clubbing. LABORATORY DATA: On 02/13/2019, WBC 8.0; hemoglobin was 11.11, previously in 08/2017, it was 10.6; MCV 93.1; platelets 191. Iron studies showed iron of 42, TIBC 239, saturation is 18%, ferritin 210. ASSESSMENT AND PLAN: An 78-year-old male who has been evaluated because of normocytic anemia. The etiology of his anemia is multifactorial. He responded to intravenous iron. However, he had chronic disease including diabetes. At this point, his labs have been [place] [address] HEMATOLOGY ONCOLOGY NOTE Name: WINDY MAR Room: [facility]#: [id number] Admission: 03/05/19 Attend Phys: Jaclyn Bernardo MD Discharge: Date of : 36 Report #: [id number] trending up slowly. Iron studies have been adequate. We will monitor the patient in 4 months. <ELECTRONICALLY SIGNED> By: Jaclyn Bernardo MD 03/06/19 1215 0937 1011Jaclyn Bernardo MD /nt
== END ==
LOC: M.RTH 05:30
DX: D64.9 Anemia, unspecified (principal); E11.9 Type 2 diabetes mellitus without complications

== ENCOUNTER → 2019-07-09 | Outpatient (CLI) | payer MEDICARE, BC ==
--- NOTE | ~2019-07-09 | HEMONC ---
[address] [address] HEMATOLOGY ONCOLOGY NOTE Name: WINDY MAR Room: [facility]#: [id number] Admission: 07/09/19 Attend Phys: Jaclyn Bernardo MD Discharge: Date of : 36 Report #: [id number] THIS REPORT FOR: //name// CC: Jaclyn Dalal DO DATE OF SERVICE: 07/09/2019 DIAGNOSIS: Anemia. SUBJECTIVE: An 78-year-old male who presented today for a followup 4 months. He reported mild to moderate fatigue; however, he continues to be active and ambulating. He does not use a cane or walker. The patient denies any shortness of breath or palpitations or lightheadedness. However, he started noticing a decreased amount of steps that he has to stop before due to fatigue. REVIEW OF SYSTEMS: All systems were reviewed. It was negative except the above. PAST MEDICAL, SOCIAL, AND FAMILY HISTORY: Unchanged from last visit. MEDICATIONS: List has been reviewed. PHYSICAL EXAMINATION: GENERAL: The patient was sitting in chair. He was not in acute distress. He is awake, alert, oriented. LUNGS: Clear to auscultations bilaterally. HEART: Regular rate and rhythm. S1, S2 within normal limits. ABDOMEN: Soft, nontender, nondistended, bowel sounds positive. LABORATORY DATA: Most recent labs on 03/01/2019, his hemoglobin was 11.1. Ferritin was 210. Most recently in 06/2019, his hemoglobin was 10.8 and ferritin 160. ASSESSMENT AND PLAN: An 78-year-old male who has been previously was evaluated because of mild normocytic anemia. Today, he does not have any major changes clinically. His hemoglobin has been almost stable with adequate iron studies. Plan is to repeat labs in 3 months and followup in 6 months. By: 1035 1119Jaclyn Bernardo MD /nt
== END ==
LOC: M.RTH 09:57
DX: D64.9 Anemia, unspecified (principal); Z79.899 Other long term (current) drug therapy; Z88.8 Allergy status to other drugs, medicaments and biological substances

== ENCOUNTER 2019-07-21 06:37 | Inpatient (IN) | payer MEDICARE, BC ==
[~2019-07-21] VITALS: Ht 177.8 cm; Wt 71.9 kg
[2019-07-21 06:42] VITALS: BP 184/84
[2019-07-21 07:14] LABS: HEMOGLOBIN 11.4 gm/dL (14.0-18.0); NUCLEATED RBCS 0 /100WBC
[2019-07-21 07:18] LABS: CREATININE 1.3 mg/dL (0.6-1.3); HEMATOCRIT 34.4 % (42.0-52.0); MCH 30.7 pg (26.0-34.0); MCHC 33.2 g/dL (28.0-37.0); MCV 92.6 fL (80.0-100.0); MPV 9.6 fl. (7.2-11.1); PLATELET COUNT* 264 thou/uL (150-400); POTASSIUM 4.5 mmol/L (3.5-5.1); RBC 3.72 mil/uL (4.50-6.00); RDW-CV 15.6 % (10.5-14.5); WBC 8.2 thou/uL (4.0-11.0)
[2019-07-21 07:21] LABS: INR 1.2; PROTIME 12.1 Seconds (9.20-11.50)
[2019-07-21 07:29] LABS: ALBUMIN 3.7 g/dL (3.4-5.0); TOTAL BILIRUBIN 1.1 mg/dL (<0.1-1.0)
[2019-07-21 07:32] LABS: URINE BILIRUBIN NEGATIVE (Negative); URINE BLOOD NEGATIVE (Negative); URINE CLARITY CLEAR; URINE COLOR YELLOW; URINE GLUCOSE-RANDOM NEGATIVE (Negative); URINE KETONES NEGATIVE (Negative); URINE LEUKOCYTES-REFLEX NEGATIVE (Negative); URINE NITRITE-REFLEX NEGATIVE (Negative); URINE PROTEIN NEGATIVE (Negative)
[2019-07-21 07:56] LABS: ABSOLUTE EOSINOPHILS 0.2 thou/uL (0.0-0.7); ABSOLUTE LYMPHOCYTES 0.5 thou/uL (0.8-5.3); ABSOLUTE MONOCYTES 0.6 thou/uL (0.0-1.2); ABSOLUTE NEUTROPHILS 6.9 thou/uL (1.6-8.1); PLATELET ESTIMATE ADEQUATE
[2019-07-21 07:57] LABS: ANISOCYTOSIS Occasional
[2019-07-21 11:05] LABS: INFLUENZA A ANTIGEN Negative (Negative); INFLUENZA B ANTIGEN Negative (Negative)
[2019-07-21 12:26] VITALS: BP 116/49
[2019-07-21 13:34] VITALS: BP 114/45
[2019-07-21 14:00] VITALS: BP 128/110
[2019-07-21 14:57] LABS: POTASSIUM 4.7 mmol/L (3.5-5.1)
[2019-07-21 16:00] VITALS: BP 132/55
[2019-07-21] MEDS ORDERED: ASA81BEC PO (16:56)
[2019-07-21 20:00] VITALS: BP 104/55
[2019-07-22 00:50] VITALS: BP 110/51
[2019-07-22 04:44] VITALS: BP 101/41
--- NOTE | 2019-07-22 05:27 | NUR ---
ASSUMED CARE OF PT AFTER REPORT AT 1930. PT A&OX4. VSS. PHYSICAL ASSESSMENT COMPLETED AND CHARTED. PT ON O2 AT 4L NC. PT TRACING SR/1ST DEG/BBB ON TELE. PT UPSTANDBY TO RESTROOM. PT DENIES ANY PAIN OR DISCOMFORT. PT ABLE TO SLEEP WELL ON BED. FALL PRECAUTIONS IN PLACE. CALL LIGHT WITHIN REACH.
[2019-07-22 08:00] VITALS: BP 115/51
--- NOTE | 2019-07-22 09:05 | NUR ---
assumed pt care report received from nurse pt is aox4, on 4 l nc. o2 saturation is 100%. this nurse decrease o2 to 2.5 l nc. 02 saturation is 97%. vss. blood sugar 42. orange juice and crackers given. blood sugar rechecked an hour after. now at 97. cardiology saw pt in room. this nurse assisted pt out of bed to the chair position with instruction to call light before getting up. pt voiced compliance. heart heathly diet started per cardio order. pt tracing sr 1st av block bbb on school bus monitor. lung sound is clear. will continue to monitor pt
[2019-07-22 12:00] VITALS: BP 102/48
--- NOTE | 2019-07-22 12:48 | 2DMMODE ---
[place] [address] 2 D/M-MODE ECHOCARDIOGRAM Name: WINDY MAR Room: [address] IN [facility]#: [id number] Admission: 07/21/19 Attend Phys: Santos Lane Discharge: Date of : 36 Date of Service: 07/22/19 1247 Report #: [id number] THIS REPORT FOR: cc: Moody Dalal,Moody Padilla,Tito Escamilla MD [facility] ~ APPROVED REPORT Study performed: 07/22/2019 10:45:19 EXAM: Comprehensive 2D, Doppler, and color-flow Echocardiogram Patient Location: In-Patient Room #: [facility] Status: routine BSA: 1.95 HR: 74 bpm BP: 115/51 mmHg Rhythm: NSR Other Information Study Quality: Good Indications Dyspnea Pleural Effusion 2D Dimensions IVSd: 10.94 (7-11mm) LVOT Diam: 23.28 (18-24mm) LVDd: 40.91 mm PWd: 10.75 (7-11mm) Ascending Ao: 33.59 (22-36mm) LVDs: 28.40 (25-40mm) Aortic Root: 33.43 mm Volumes Left Atrial Volume (Systole) LA ESV Index: 51.30 mL/m2 Aortic Valve AoV Peak Rishabh.: 1.67 m/s AO Peak Gr.: 11.16 mmHg LVOT Max P.34 mmHg AO Mean Gr.: 6.59 mmHg LVOT Mean P.10 mmHg LVOT Max V: 0.76 m/s AO V2 VTI: 35.14 cm LVOT Mean V: 0.48 m/s LALITO (VTI): 2.34 cm2 LVOT V1 VTI: 19.33 [place] [address] 2 D/M-MODE ECHOCARDIOGRAM Name: WINDY MAR Room: [address] IN ..#: [id number] Admission: 07/21/19 Attend Phys: Santos Lane Discharge: Date of : 36 Date of Service: 07/22/19 1247 Report #: [id number] Mitral Valve E/A Ratio: 2.16 MV Decel. Time: 165.76 ms MV E Max Rishabh.: 1.08 m/s MV PHT: 48.07 ms MVA (PHT): 4.58 cm2 TDI E/Lateral E': 13.50 E/Medial E': 15.43 Medial E' Rishabh.: 0.07 m/s Lateral E' Rishabh.: 0.08 m/s Pulmonary Valve PV Peak Rishabh.: 0.73 m/s PV Peak Gr.: 2.15 mmHg Tricuspid Valve RAP Estimate: 5.00 mmHg TR Peak Gr.: 42.28 mmHg RVSP: 47.00 mmHg PA Pressure: 47.00 mmHg Left Ventricle The left ventricle is normal size. There is normal LV segmental wall motion. Mild concentric left ventricular hypertrophy. Left ventricular systolic function is normal. The left ventricular ejection fraction is within the normal range. LVEF is 65%. Grade IV - fixed restrictive diastolic dysfunction. Right Ventricle The right ventricle is normal size. The right ventricular systolic function is normal. Atria Left atrium is moderately dilated. The right atrium size is normal. Aortic Valve Moderate aortic valve sclerosis. No aortic regurgitation is present. No hemodynamically significant valvular aortic stenosis. Mitral Valve Mild mitral annular calcification. Trace mitral regurgitation. No evidence of mitral valve stenosis. Tricuspid Valve The tricuspid valve is normal in [place] [address] 2 D/M-MODE ECHOCARDIOGRAM Name: WINDY MAR Room: [address] IN [facility]#: [id number] Admission: 07/21/19 Attend Phys: Santos Lane Discharge: Date of : 36 Date of Service: 07/22/19 1247 Report #: [id number] tricuspid regurgitation. Moderate pulmonary hypertension. Pulmonic Valve The pulmonary valve is normal in structure. Trace pulmonic regurgitation. Great Vessels The aortic root is normal in size. IVC is normal in size and collapses >50% with inspiration. Pericardium There is no pericardial effusion. Left pleural effusion. <Conclusion> The left ventricle is normal size. Mild concentric left ventricular hypertrophy. Left ventricular systolic function is normal. The left ventricular ejection fraction is within the normal range. LVEF is 65%. The right ventricle is normal size. Left atrium is moderately dilated. Moderate aortic valve sclerosis. No aortic regurgitation is present. No hemodynamically significant valvular aortic stenosis. Mild mitral annular calcification. Trace mitral regurgitation. No evidence of mitral valve stenosis. The tricuspid valve is normal in structure. Mild to moderate tricuspid regurgitation. Moderate pulmonary hypertension. IVC is normal in size and collapses >50% with inspiration. There is no pericardial effusion. There is normal LV segmental wall motion. <ELECTRONICALLY SIGNED> By: Tito Encarnacion MD, FACC 07/22/19 1247 1247 1247 Tito Encarnacion MD, FACC /INF
--- NOTE | 2019-07-22 13:13 | NUR ---
Pt is A&O. Resides at home. Supportive sig other. Pt has home neb, no home o2. No hx of HH or SNF. Goal is home at dc. Following for dc needs.
[2019-07-22 13:29] LABS: CALCIUM 8.9 mg/dL (8.5-10.1); CREATININE 1.6 mg/dL (0.6-1.3); POTASSIUM 4.5 mmol/L (3.5-5.1)
[2019-07-22 13:33] LABS: ALBUMIN 3.1 g/dL (3.4-5.0); TOTAL BILIRUBIN 1.2 mg/dL (<0.1-1.0); TOTAL PROTEIN 7.2 g/dL (6.4-8.2)
[2019-07-22 14:15] LABS: ABSOLUTE EOSINOPHILS 0.1 thou/uL (0.0-0.7); ABSOLUTE LYMPHOCYTES 0.3 thou/uL (0.8-5.3); ABSOLUTE MONOCYTES 0.4 thou/uL (0.0-1.2); ABSOLUTE NEUTROPHILS 6.6 thou/uL (1.6-8.1); BASOPHILS 0.2 %; EOSINOPHILS 0.9 %; HEMATOCRIT 29.7 % (42.0-52.0); LYMPHOCYTES 4.3 %; MCHC 33.6 g/dL (28.0-37.0); MCV 92.3 fL (80.0-100.0); MONOCYTES 5.9 %; MPV 10.1 fl. (7.2-11.1); NUCLEATED RBCS 0 /100WBC; POLYS 88.7 %; RBC 3.22 mil/uL (4.50-6.00); RDW-CV 15.7 % (10.5-14.5); WBC 7.4 thou/uL (4.0-11.0)
[2019-07-22 14:27] LABS: PLATELET COUNT* 181 thou/uL (150-400)
[2019-07-22 16:00] VITALS: BP 129/59
--- NOTE | 2019-07-22 17:08 | NUR ---
pt ambulated in hallway accompanied by this nurse on 2 l nc. no sign of sob noticed. then pt o2 was discontinued by respiratory therapist. pt is now lying in bed. on ra. o2 stat 95% . vs remain stable. call light at reach. fall precaution in place
[2019-07-22 20:00] VITALS: BP 145/65
[2019-07-23] VITALS: BP 146/70
--- NOTE | 2019-07-23 03:12 | NUR ---
PT ALERT ORIETNED UP IN ROOM AND MAO WITH STD BY ASSIST. TELEMETRY SHOWS SR BBB 1ST DEGREE AVB. ON RA. VOIDS PER URINAL DK LISBETH. PT GIVEN TEMAZEPAM FOR SLEEP. PT STATES HE HAS NOT SLEPT MUCH SINCE BEING HERE BECAUSE WE DID NOT START HIS HS LORAZEPAM. DR ARTHUR NOTIFIED AND ORDER OBTAINED FOR LORAZEPAM. THIS RN WENT TO GIVE LORAZEPAM AND FOUND PT TO BE RESTING WITH EYES CLOSED UNRESPONSIVE FOR SOFT VOICE. TELEMETRY SHOWS SR BBB 1ST DEGREE AVB. WCTM
[2019-07-23 04:00] VITALS: BP 142/63
--- NOTE | 2019-07-23 04:30 | NUR ---
PT WITH SKIN TEAR ON LEFT ELBOW. CLEANED WITH SALINE, PICTURED AND COVERED.
[2019-07-23 08:00] VITALS: BP 135/51
--- NOTE | 2019-07-23 08:50 | NUR ---
assumed pt care report received from nurse pt is aox4. accucheck 423. result communicated to taking care of pt this am. dr states that he will be around this am. this nurse noticed that the pt's antibiotics were not started as stated in dr s noted. this was communicated to the dr as well who states that he will address it during his round.
[2019-07-23] MEDS ORDERED: CEFDINIR300 MG PO (11:00)
[2019-07-23] MEDS ORDERED: AZITHROMYCIN 2250 MG PO (11:00)
[2019-07-23] MEDS ORDERED: MUCUS ER600 MG PO (11:01)
[2019-07-23 12:00] VITALS: BP 144/65
[2019-07-23 12:23] VITALS: BP 135/51
[2019-07-23 13:51] VITALS: BP 135/51
--- NOTE | 2019-07-23 14:00 | NUR ---
pt antibiotics ordered per nurse as ordered. accu 120 at lunck time. no insulin given per sliding scale. discharge ordered. heart monitor retrieved. iv line remonved. left arm dressing changed. skin tear is still present. picture was taken within last 24 hours. see chart. no further complaint. pt left unit at 1345 accompanied by nurse and significant other on wheelchair, on ra. discharge instructions given.
--- NOTE | 2019-07-24 13:56 | EKG ---
[place] [address] ELECTROCARDIOGRAM REPORT Name: WINDY MAR Room: [address] IN M.R.#: [id number] Admission: 07/21/19 Attend Phys: Santos Lane Discharge: 07/23/19 Date of : 36 Date of Service: 07/21/19 0649 Report #: [id number] THIS REPORT FOR: cc: Moody Dalal Steve T. DO Holkins, John M. MD [facility] ~ THIS REPORT FOR: //name// 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: JH : 1940 Requested By: Britt Meek Order Number: [id number] : Tito Encarnacion Measurements Intervals [place] Rate: 83 P: 0 [place]: 55 QRS: 69 QRSD: 140 T: 2 QT: 398 QTc: 468 Interpretive Statements Sinus rhythm Right bundle branch block Anteroseptal infarct, age indeterminate possible Baseline wander in lead(s) V1 Compared to ECG 12/01/2018 08:26:40 Myocardial infarct finding now present Electronically Signed On 07-22-2019 15:58:53 GLOBAL MARKETING OPERATIONS MANAGER by Tito Encarnacion [email or web address] <ELECTRONICALLY SIGNED> By: Tito Encarnacion MD, [facility] 07/22/19 1558 0649 0649 Tito Encarnacion MD, [facility] /EPI
== END 2019-07-23 13:45 | disposition home or self-care (01) | DRG 177 ==
LOC: M.ERS 06:37 → M.TBA-ER 08:26 → M.2W 08:26
PROVIDERS: Emergency Medicine; Emergency Medicine Emergency Medical Services; ADMIT Internal Medicine
PROC: 5A09357 Assistance with Respiratory Ventilation, Less than 24 Consecutive Hours, Continuous Positive Airway Pressure (ICD-10-PCS; principal; 2019-07-21)
DX: J69.0 Pneumonitis due to inhalation of food and vomit (principal); J96.01 Acute respiratory failure with hypoxia; I50.32 Chronic diastolic (congestive) heart failure; J44.1 Chronic obstructive pulmonary disease with (acute) exacerbation; I11.0 Hypertensive heart disease with heart failure; K21.9 Gastro-esophageal reflux disease without esophagitis; E11.649 Type 2 diabetes mellitus with hypoglycemia without coma; E78.5 Hyperlipidemia, unspecified; G47.33 Obstructive sleep apnea (adult) (pediatric); I25.10 Atherosclerotic heart disease of native coronary artery without angina pectoris; I27.20 Pulmonary hypertension, unspecified; Z79.899 Other long term (current) drug therapy; Z85.01 Personal history of malignant neoplasm of esophagus; Z79.82 Long term (current) use of aspirin; Z79.84 Long term (current) use of oral hypoglycemic drugs; Z79.4 Long term (current) use of insulin; Z79.51 Long term (current) use of inhaled steroids; Z87.891 Personal history of nicotine dependence; Z82.49 Family history of ischemic heart disease and other diseases of the circulatory system; Z83.6 Family history of other diseases of the respiratory system

== ENCOUNTER → 2019-09-25 | Outpatient (CLI) | payer MEDICARE, BC ==
[~2019-09-25] MED LIST changes: +ASA81BEC PO; +MUCUS ER600 MG PO
[2019-09-25 13:42] LABS: ABSOLUTE EOSINOPHILS 0.3 thou/uL (0.0-0.7); ABSOLUTE LYMPHOCYTES 0.5 thou/uL (0.8-5.3); ABSOLUTE MONOCYTES 0.4 thou/uL (0.0-1.2); ABSOLUTE NEUTROPHILS 3.3 thou/uL (1.6-8.1); EOSINOPHILS 5.7 %; HEMOGLOBIN 10.3 gm/dL (14.0-18.0); LYMPHOCYTES 10.8 %; MCH 30.4 pg (26.0-34.0); MCHC 33.1 g/dL (28.0-37.0); MCV 91.7 fL (80.0-100.0); MONOCYTES 8.9 %; MPV 9.8 fl. (7.2-11.1); NUCLEATED RBCS 0 /100WBC; PLATELET COUNT* 149 thou/uL (150-400); POLYS 73.6 %; RBC 3.38 mil/uL (4.50-6.00); RDW-CV 16.1 % (10.5-14.5); WBC 4.5 thou/uL (4.0-11.0)
[2019-09-25 14:05] LABS: % SATURATION 16 % (20-39); IRON 40 ug/dL (50-175)
== END ==
LOC: M.LAB 13:18
PROVIDERS: Internal Medicine
DX: D50.9 Iron deficiency anemia, unspecified (principal)

== ENCOUNTER → 2019-11-20 | Outpatient (CLI) | payer MEDICARE, BC ==
[2019-11-20 12:29] LABS: CALCIUM 8.8 mg/dL (8.5-10.1); CREATININE 1.9 mg/dL (0.6-1.3); POTASSIUM 4.8 mmol/L (3.5-5.1)
== END ==
LOC: M.LAB 11:49
PROVIDERS: ATTEND Registered Nurse
DX: I50.32 Chronic diastolic (congestive) heart failure (principal)

== ENCOUNTER 2019-12-13 00:18 | Observation (INO) | payer MEDICARE, BC ==
[~2019-12-13] VITALS: Ht 177.8 cm; Wt 73.9 kg
[2019-12-13 00:24] VITALS: BP 122/61
[2019-12-13 00:50] LABS: ABSOLUTE EOSINOPHILS 0.2 thou/uL (0.0-0.7); ABSOLUTE LYMPHOCYTES 0.5 thou/uL (0.8-5.3); ABSOLUTE MONOCYTES 0.7 thou/uL (0.0-1.2); ABSOLUTE NEUTROPHILS 4.3 thou/uL (1.6-8.1); BASOPHILS 0.7 %; EOSINOPHILS 4.3 %; HEMOGLOBIN 10.3 gm/dL (14.0-18.0); MCH 31.7 pg (26.0-34.0); MCHC 34.3 g/dL (28.0-37.0); MCV 92.2 fL (80.0-100.0); MONOCYTES 11.3 %; MPV 9.5 fl. (7.2-11.1); NUCLEATED RBCS 0 /100WBC; PLATELET COUNT* 170 thou/uL (150-400); POLYS 74.7 %; RBC 3.25 mil/uL (4.50-6.00); RDW-CV 16.4 % (10.5-14.5); WBC 5.8 thou/uL (4.0-11.0)
[2019-12-13 00:56] LABS: CALCIUM 8.5 mg/dL (8.5-10.1); CREATININE 2.5 mg/dL (0.6-1.3); POTASSIUM 4.3 mmol/L (3.5-5.1)
[2019-12-13 01:00] LABS: ALBUMIN 3.7 g/dL (3.4-5.0); MAGNESIUM 2.1 mg/dL (1.8-2.4); TOTAL BILIRUBIN 0.7 mg/dL (<0.1-1.0); TOTAL PROTEIN 7.6 g/dL (6.4-8.2)
[2019-12-13 03:28] VITALS: BP 118/50
[2019-12-13 07:11] LABS: URINE BILIRUBIN NEGATIVE (Negative); URINE BLOOD NEGATIVE (Negative); URINE CLARITY CLEAR; URINE COLOR YELLOW; URINE GLUCOSE-RANDOM NEGATIVE (Negative); URINE KETONES NEGATIVE (Negative); URINE LEUKOCYTES-REFLEX NEGATIVE (Negative); URINE NITRITE-REFLEX NEGATIVE (Negative); URINE PROTEIN NEGATIVE (Negative); URINE UROBILINOGEN 0.2 E.U./dl (0.2-1.0)
[2019-12-13 07:30] VITALS: BP 110/58
[2019-12-13 20:13] VITALS: BP 145/66
[2019-12-14 04:47] LABS: CALCIUM 8.5 mg/dL (8.5-10.1); MAGNESIUM 2.1 mg/dL (1.8-2.4); PHOSPHORUS* 3.1 mg/dL (2.5-4.9); POTASSIUM 4.1 mmol/L (3.5-5.1)
[2019-12-14 07:25] VITALS: BP 125/72
[2019-12-14] MEDS ORDERED: GLUCOPHAGE500 MG PO (09:15)
[2019-12-14] MEDS ORDERED: GLUCOTROL5 MG PO (09:15)
[2019-12-14 09:30] VITALS: BP 125/72
[2019-12-14 09:38] VITALS: BP 125/72
[2019-12-14 12:48] VITALS: BP 125/72
== END 2019-12-14 12:50 | disposition home or self-care (01) ==
LOC: M.ERS 00:18 → M.TBA-ER 02:42 → M.ORTHSURG 03:39
PROVIDERS: Emergency Medicine; Family Medicine; ADMIT Internal Medicine; ATTEND Internal Medicine
DX: E11.649 Type 2 diabetes mellitus with hypoglycemia without coma (principal); E11.22 Type 2 diabetes mellitus with diabetic chronic kidney disease; I12.9 Hypertensive chronic kidney disease with stage 1 through stage 4 chronic kidney disease, or unspecified chronic kidney disease; N18.3 Chronic kidney disease, stage 3 (moderate); N17.9 Acute kidney failure, unspecified; I25.10 Atherosclerotic heart disease of native coronary artery without angina pectoris; K21.9 Gastro-esophageal reflux disease without esophagitis; I13.0 Hypertensive heart and chronic kidney disease with heart failure and stage 1 through stage 4 chronic kidney disease, or unspecified chronic kidney disease; I50.9 Heart failure, unspecified; Z85.01 Personal history of malignant neoplasm of esophagus

== ENCOUNTER 2020-01-13 10:40 | Inpatient (IN) | payer MEDICARE, BC ==
[~2020-01-13] VITALS: Ht 177.8 cm; Wt 89.3 kg
[2020-01-13 11:00] VITALS: BP 89/36
[2020-01-13] MEDS ORDERED: GLUCOPHAGE500 MG PO (11:19)
[2020-01-13 11:29] LABS: ABSOLUTE EOSINOPHILS 0.1 thou/uL (0.0-0.7); ABSOLUTE LYMPHOCYTES 0.3 thou/uL (0.8-5.3); ABSOLUTE MONOCYTES 0.5 thou/uL (0.0-1.2); ABSOLUTE NEUTROPHILS 3.8 thou/uL (1.6-8.1); BASOPHILS 0.6 %; EOSINOPHILS 1.8 %; HEMATOCRIT 29.4 % (42.0-52.0); HEMOGLOBIN 10.1 gm/dL (14.0-18.0); LYMPHOCYTES 6.3 %; MCH 31.7 pg (26.0-34.0); MCHC 34.3 g/dL (28.0-37.0); MCV 92.5 fL (80.0-100.0); MPV 9.6 fl. (7.2-11.1); NUCLEATED RBCS 0 /100WBC; PLATELET COUNT* 166 thou/uL (150-400); POLYS 81.3 %; RBC 3.18 mil/uL (4.50-6.00); RDW-CV 15.7 % (10.5-14.5); WBC 4.7 thou/uL (4.0-11.0)
[2020-01-13 11:38] LABS: APTT 31.1 Seconds (25.0-31.3); INR 1.2; PROTIME 12.3 Seconds (9.20-11.50)
[2020-01-13 11:40] LABS: URINE BILIRUBIN NEGATIVE (Negative); URINE BLOOD 3+ (Negative); URINE CLARITY SL CLOUDY; URINE COLOR YELLOW; URINE GLUCOSE-RANDOM NEGATIVE (Negative); URINE KETONES NEGATIVE (Negative); URINE LEUKOCYTES-REFLEX TRACE (Negative); URINE NITRITE-REFLEX NEGATIVE (Negative); URINE PROTEIN 2+ (Negative); URINE UROBILINOGEN 0.2 E.U./dl (0.2-1.0)
[2020-01-13 11:49] LABS: SQUAMOUS NONE SEEN /LPF (0-3)
[2020-01-13 11:50] LABS: URINE RBC >20 Many /HPF (0-2); URINE WBC-REFLEX 0-5 Rare /HPF (0-5)
[2020-01-13 11:51] LABS: BACTERIA-REFLEX None Seen /HPF (None Seen); CASTS None Seen /LPF (None Seen); CRYSTALS None Seen /LPF (None Seen); MUCUS None Seen strn/LPF (None Seen)
[2020-01-13 11:54] LABS: CALCIUM 8.1 mg/dL (8.5-10.1); CREATININE 5.3 mg/dL (0.6-1.3)
[2020-01-13 12:05] LABS: ALBUMIN 2.8 g/dL (3.4-5.0); TOTAL BILIRUBIN 0.8 mg/dL (<0.1-1.0); TOTAL PROTEIN 6.2 g/dL (6.4-8.2)
[2020-01-13 12:06] LABS: POTASSIUM 6.5 mmol/L (3.5-5.1)
[2020-01-13 13:26] LABS: BE -9.5 mmol/L (-2 to +3); PO2 76.5 mmHg (75.0-100.0); pH 7.325 (7.340-7.450)
--- NOTE | 2020-01-13 15:23 | EKG ---
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 01/13/20 1523 1103 1103 Devonte Christina MD, [facility] /EPI
[2020-01-13 15:52] LABS: CALCIUM 8.7 mg/dL (8.5-10.1); CREATININE 5.5 mg/dL (0.6-1.3)
--- NOTE | 2020-01-13 16:37 | CON ---
[address] [address] CONSULTATION Name: WINDY MAR V Room: [address] IN .R.#: [id number] Admission: 01/13/20 Attend Phys: Scooter Saez MD Discharge: Date of : 36 Report #: [id number] THIS REPORT FOR: //name// cc: Moody Dalal Steve T. DO ~ THIS REPORT FOR: //name// CC: Jen Dalal DO DATE OF SERVICE: 01/13/2020 CARDIOLOGY CONSULTATION HISTORY OF PRESENT ILLNESS: The patient is an 79-year-old single white male who I was asked to see in the Emergency Room today after he was noted to be bradycardic. The patient has an extensive and complicated past medical history. He has a history of esophageal cancer. He apparently had resection of his esophagus back in [address] Jayjay Sampson at [facility]. He then received radiation therapy and chemotherapy. He apparently had had talc injected into the left pleural space for an effusion. He has had bilateral carotid endarterectomies. He apparently has renal artery stents placed in the past. He apparently has no history of coronary artery disease. He has been followed by my partner, Dr. Oniel Wellington. Stress test in 2017 showed no evidence of ischemia. His last echocardiogram in July this year showed an ejection fraction of 65%, left atrial enlargement. The patient saw my nurse practitioner, Tena Russo in November. He does take Lasix for lower extremity edema. The patient states recently he has not been feeling very well. He does get short of breath and exerts himself. Recently, he is having difficulty voiding. He has had no urine output for the past day. His significant other brought him to the Emergency Room today. He was noted to be bradycardic. Cardiology consultation was requested. He denies any chest pain, fever, cough, vomiting, or diarrhea. PAST MEDICAL HISTORY: Otherwise significant for prostatic hypertrophy, diabetes, hyperlipidemia, hypertension. MEDICATIONS: Include aspirin, Lasix, Neurontin, insulin, metoprolol, omeprazole, simvastatin, Carafate, Flomax. ALLERGIES: He has no known drug allergies. FAMILY HISTORY: His father had heart problems. SOCIAL HISTORY: He is single, lives with a girlfriend [place], [place] [address] CONSULTATION Name: WINDY MAR V Room: [address]#: [id number] Admission: 01/13/20 Attend Phys: Scooter Saez MD Discharge: Date of : 36 Report #: [id number] Quit smoking in 2009. Rarely drinks alcohol. REVIEW OF SYSTEMS: No history of stroke, asthma, liver disease, kidney disease, chronic skin condition or psychiatric illness. PHYSICAL EXAMINATION: GENERAL: Elderly, frail appearing female, lying in bed, appeared in no distress. VITAL SIGNS: Blood pressure is only 90 systolic, pulse is only 40. HEENT: He was anicteric. Conjunctivae pink. Mucous membranes appear dry. CHEST: Clear to auscultation. CARDIOVASCULAR: Regular bradycardia, no significant murmur. ABDOMEN: Soft. EXTREMITIES: Had trace edema. SKIN: Cool and dry. IMAGING: His ECG on admission showed what appeared to represent a junctional rhythm with a right bundle-branch block. His workup in the Emergency Room today, he had a portable chest x-ray that showed cardiomegaly, small effusions. LABORATORY DATA: Sodium 118, potassium 6.5, BUN 74, creatinine 5.3. His liver function studies were normal. Albumin 2.8. Troponin 0.06. BNP 20,450. His white blood cell count 4.7 and hemoglobin 10.1. IMPRESSION AND RECOMMENDATIONS: 1. Sinus bradycardia, suspect exacerbated by hyperkalemia and metoprolol. 2. History of esophageal cancer. 3. Hypertension. Blood pressure noted to be low at this time. 4. Hyperlipidemia. The patient takes fish oil. 5. Diabetes. 6. Previous carotid endarterectomy. 7. Unable to urinate, suspect prostatism. 8. Renal failure. 9. Anemia. <ELECTRONICALLY SIGNED> By: Devonte Christina MD, FACC 01/13/20 1637 1311 1334Daugustus Christina MD, FAC /nt
[2020-01-13 17:32] LABS: URINE POTASSIUM-RANDOM 29.4 mmol/L
[2020-01-13 18:13] VITALS: BP 102/57
[2020-01-13 21:30] LABS: CALCIUM 8.4 mg/dL (8.5-10.1); CREATININE 5.4 mg/dL (0.6-1.3)
[2020-01-13 21:31] LABS: POTASSIUM 6.3 mmol/L (3.5-5.1)
[2020-01-13 22:11] VITALS: BP 159/53
[2020-01-14] VITALS (16 sets, daily range): BP systolic 92–144; BP diastolic 36–60
[2020-01-14 00:32] LABS: CALCIUM 8.4 mg/dL (8.5-10.1); CREATININE 5.6 mg/dL (0.6-1.3)
[2020-01-14 00:40] LABS: POTASSIUM 6.1 mmol/L (3.5-5.1)
[2020-01-14 04:17] LABS: CALCIUM 8.3 mg/dL (8.5-10.1); CREATININE 5.4 mg/dL (0.6-1.3); POTASSIUM 5.9 mmol/L (3.5-5.1)
--- NOTE | 2020-01-14 13:19 | EKG ---
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: : 1940 Requested By: Devonte Christina Order Number: [id number] Swati MD: Oniel Wellington Measurements Intervals [place] Rate: 54 P: 0 WV: 317 QRS: 26 QRSD: 176 T: -2 QT: 516 QTc: 490 Interpretive Statements Sinus rhythm Prolonged [place] interval Probable left atrial enlargement Right bundle branch block Compared to ECG 01/13/2020 11:03:38 First degree AV block now present Junctional rhythm no longer present Electronically Signed On 01-14-2020 13:19:14 CDT by Oniel Wellington [email or web address] <ELECTRONICALLY SIGNED> By: Oniel Wellington MD, FAC 01/14/20 1319 0919 Oniel Wellington MD, [facility] /EPI
[2020-01-14 15:55] LABS: CALCIUM 8.1 mg/dL (8.5-10.1); CREATININE 5.7 mg/dL (0.6-1.3)
[2020-01-14 15:58] LABS: POTASSIUM 6.6 mmol/L (3.5-5.1)
[2020-01-14 16:09] LABS: BF RBC 1268 /mm3; TOTAL CELL COUNT 353 /mm3
[2020-01-14 16:22] LABS: CLARITY CLEAR; TOTAL VOLUME 2160 ml
[2020-01-14 16:37] LABS: BF LYMPHOCYTES 9 %; BF MONOCYTES 82 %; BF POLYS 9 %; SOURCE PLEURAL FLUID
[2020-01-15] VITALS (43 sets, daily range): BP systolic 65–139; BP diastolic 31–71
[2020-01-15 03:35] LABS: CREATININE 5.9 mg/dL (0.6-1.3)
[2020-01-15 03:42] LABS: CALCIUM 8.2 mg/dL (8.5-10.1)
[2020-01-15 03:46] LABS: POTASSIUM 5.4 mmol/L (3.5-5.1)
[2020-01-15 06:06] LABS: BODY FLUID LDH 93 IU/L (()); BODY FLUID PROTEIN 3.1 g/dL (())
--- NOTE | 2020-01-15 11:01 | EKG ---
[place] [address] ELECTROCARDIOGRAM REPORT Name: WINDY MAR V Room: [address] ADM IN M.R.#: [id number] Admission: 01/13/20 Attend Phys: Scooter Saez, Discharge: Date of : 36 Date of Service: 01/15/20 0752 Report #: [id number] THIS REPORT FOR: //name// [facility] Test Date: 2020-01-15 Test Time: 07:52:03 Pat Name: WINDY MAR Department: Room: [address] Gender: M Development Director: : 1940 Requested By: Devonte Christina Order Number: [id number] Swati MD: Devonte Christina Measurements Intervals [place] Rate: 46 P: [place]: QRS: 38 QRSD: 149 T: 26 QT: 530 QTc: 464 Interpretive Statements Junctional rhythm Right bundle branch block Compared to ECG 01/14/2020 09:19:17 no change Electronically Signed On 01-15-2020 11:01:24 CDT by Devonte Christina [email or web address] <ELECTRONICALLY SIGNED> By: Devonte Christina MD, [facility] 01/15/20 1101 0752 0752 Devonte Christina MD, [facility] /EPI
[2020-01-15 13:22] LABS: CALCIUM 7.5 mg/dL (8.5-10.1); POTASSIUM 5.6 mmol/L (3.5-5.1)
[2020-01-16] VITALS (41 sets, daily range): BP systolic 94–144; BP diastolic 36–68
[2020-01-16 05:05] LABS: HEMATOCRIT 27.9 % (42.0-52.0); HEMOGLOBIN 9.6 gm/dL (14.0-18.0); MCH 31.6 pg (26.0-34.0); MCHC 34.2 g/dL (28.0-37.0); MCV 92.4 fL (80.0-100.0); MPV 10.1 fl. (7.2-11.1); RBC 3.02 mil/uL (4.50-6.00); WBC 4.4 thou/uL (4.0-11.0)
[2020-01-16 05:26] LABS: ALBUMIN 2.4 g/dL (3.4-5.0); CALCIUM 7.9 mg/dL (8.5-10.1); CREATININE 5.2 mg/dL (0.6-1.3); MAGNESIUM 1.9 mg/dL (1.8-2.4); TOTAL BILIRUBIN 0.5 mg/dL (<0.1-1.0); TOTAL PROTEIN 5.5 g/dL (6.4-8.2)
[2020-01-16 05:27] LABS: POTASSIUM 4.6 mmol/L (3.5-5.1)
--- NOTE | 2020-01-16 11:50 | CON ---
[address] [address] CONSULTATION Name: WINDY MAR V Room: [address] IN .R.#: [id number] Admission: 01/13/20 Attend Phys: Scooter Saez MD Discharge: Date of : 38 Report #: [id number] THIS REPORT FOR: //name// cc: Moody Dalal Steve T. DO ~ THIS REPORT FOR: //name// CC: Scooter Dalal DATE OF SERVICE: 01/14/2020 REASON FOR CONSULTATION: Critical hyperkalemia, hyponatremia and acute kidney injury. HISTORY OF PRESENT ILLNESS: The patient is a very pleasant 79-year-old gentleman, with medical history significant for esophageal cancer. History of cancer is as follows, the patient was diagnosed about 10 years ago. He had a surgery done by ____ 7 years ago and now been followed with Dr. Bernardo. I do not know real extent of the disease, but it is very likely that he has metastatic cancer. The last note from Dr. Ospina was in 2018 ____. All he wrote the patient had history of cancer. Again, the fact that patient now tells me that Dr. Bernardo wants to follow him, tells me that most likely that he has metastatic disease. The patient presents with complaints of not able to urinate for 12 hours prior to admission. A Wu catheter was placed, 300 mL of urine was obtained. His creatinine on admission was 5.3, 5.4 now. Potassium was 6.5, it is down to 5.9, now, serum sodium was 118, it is 121. He had a chest x-ray done and chest CT done and this study revealed mild cardiomegaly and extensive calcification of the coronary artery disease and aortic arch and aorta. He had moderate to large left pleural effusion and some right pleural effusion as well. There were some amount of ascites. Renal ultrasound was unremarkable. No evidence of hydronephrosis. There were some increased echogenicity bilaterally suggesting chronic kidney disease. PAST MEDICAL HISTORY: 1. Diabetes mellitus type 2. 2. History of esophageal cancer as I mentioned earlier. 3. Chronic kidney disease stage 3. 4. Chronic obstructive pulmonary disease. 5. History of hypertension. 6. Extensive atherosclerosis was [place] [address] CONSULTATION Name: WINDY MAR V Room: [address]#: [id number] Admission: 01/13/20 Attend Phys: Scooter Saez MD Discharge: Date of : 38 Report #: [id number] SOCIAL HISTORY: No current tobacco or alcohol abuse. MEDICATIONS: Reviewed. REVIEW OF SYSTEMS: Positive for the symptoms as I mentioned earlier. PHYSICAL EXAMINATION: GENERAL: Awake, alert, oriented. VITAL SIGNS: Blood pressure is 107/44 was as low as 83/36, heart rate is 56, respiratory rate is 20. HEENT: Pupils are round. NECK: Supple. LUNGS: Decreased air movements, both bases, more on the left. CARDIOVASCULAR: Regular rate. ABDOMEN: Soft. EXTREMITIES: Lower extremities, bilateral 1+ edema. LABORATORY DATA: Serum sodium 121, potassium 5.9, chloride 86, carbon dioxide 23, BUN 76, creatinine 5.4. His urine is bloody. Wu catheter is in. His hemoglobin is 10.1, white count 4.7, platelet count 166,000. ASSESSMENT: 1. Acute kidney injury, probably combination of some obstruction. He has a history of BPH and possibly fluid depletion. He is volume depleted despite of the fact that his pleural effusions. 2. Esophageal cancer, ____ metastatic with malignant effusions or he may have effusions due to history of pneumonia and his parapneumonic effusions. Most likely it is cancer because he also has some ascitic fluids. 3. Diabetes mellitus type 2. 4. Severe atherosclerosis. 5. Coronary disease. PLAN: 1. Continue with the bicarbonate drip and glucose and insulin for his critical hyperkalemia. 2. We will monitor his labs carefully. 3. He might require dialysis, patient does not want chronic dialysis, but might try acute dialysis for a while. 4. Thoracentesis and examining fluids for malignant cells will be done today. Total of 45 minutes spent on this critical patient. <ELECTRONICALLY SIGNED> By: Nate Morrell MD 01/16/20 1150 1132 1405Alexnikolas Morrell MD /nt
[2020-01-16 13:40] LABS: SOURCE PLEURAL
--- NOTE | 2020-01-16 15:40 | 2DMMODE ---
[place] [address] 2 D/M-MODE ECHOCARDIOGRAM Name: WINDY MAR V Room: [address] IN [facility]#: [id number] Admission: 01/13/20 Attend Phys: Scooter Saez, Discharge: Date of : 38 Date of Service: 01/16/20 1540 Report #: [id number] THIS REPORT FOR: cc: Moody Dalal Steve T. DO Liston, Michael J. MD [facility] ~ APPROVED REPORT Study performed: 01/16/2020 14:26:01 EXAM: Comprehensive 2D, Doppler, and color-flow Echocardiogram Patient Location: In-Patient Room #: [facility] Status: routine BSA: 2.09 HR: 55 bpm BP: 118/47 mmHg Rhythm: NSR Other Information Study Quality: Good Indications fluid overload 2D Dimensions IVSd: 10.34 (7-11mm) LVOT Diam: 24.50 (18-24mm) LVDd: 38.58 mm PWd: 9.40 (7-11mm) LVDs: 20.62 (25-40mm) Aortic Root: 33.57 mm Volumes Left Atrial Volume (Systole) LA ESV Index: 47.00 mL/m2 Aortic Valve AoV Peak Rishabh.: 1.56 m/s AO Peak Gr.: 9.79 mmHg LVOT Max P.27 mmHg AO Mean Gr.: 5.14 mmHg LVOT Mean P.22 mmHg LVOT Max V: 0.90 m/s AO V2 VTI: 39.63 cm LVOT Mean V: 0.49 m/s LALITO (VTI): 2.34 cm2 LVOT V1 VTI: 19.67 [place] [address] 2 D/M-MODE ECHOCARDIOGRAM Name: WINDY MAR V Room: [address] IN .R.#: [id number] Admission: 01/13/20 Attend Phys: Scooter Saez, Discharge: Date of : 38 Date of Service: 01/16/20 1540 Report #: [id number] Mitral Valve E/A Ratio: 2.97 MV Decel. Time: 207.19 ms MV E Max Rishabh.: 1.05 m/s MV PHT: 60.09 ms MVA (PHT): 3.66 cm2 TDI E/Lateral E': 10.50 E/Medial E': 17.50 Medial E' Rishabh.: 0.06 m/s Lateral E' Rishabh.: 0.10 m/s Pulmonary Valve PV Peak Rishabh.: 0.76 m/s PV Peak Gr.: 2.32 mmHg Tricuspid Valve RAP Estimate: 5.00 mmHg TR Peak Gr.: 34.23 mmHg RVSP: 39.00 mmHg PA Pressure: 39.00 mmHg Left Ventricle The left ventricle is normal size. There is normal LV segmental wall motion. There is normal left ventricular wall thickness. Left ventricular systolic function is normal. LVEF is 60-65%. This study is not technically sufficient to allow evaluation of the LV diastolic function due to atrial flutter. Right Ventricle The right ventricle is normal size. The right ventricular systolic function is normal. Atria Left atrium is moderately dilated. Right atrium is moderately dilated. Aortic Valve Mild aortic valve sclerosis. Mild aortic regurgitation. There is no aortic valvular stenosis. Mitral Valve The mitral valve is normal in structure. Trace mitral regurgitation. No evidence of mitral valve stenosis. Tricuspid Valve The tricuspid valve is normal in structure. Trace tricuspid regurgitation. Mild pulmonary hypertension. The RVSP is 40-45 [place] [address] 2 D/M-MODE ECHOCARDIOGRAM Name: WINDY MAR V Room: [address]#: [id number] Admission: 01/13/20 Attend Phys: Scooter Saez, Discharge: Date of : 38 Date of Service: 01/16/20 1540 Report #: [id number]. Pulmonic Valve The pulmonary valve is normal in structure. Trace pulmonic regurgitation. Great Vessels The aortic root is normal in size. IVC is normal in size and collapses >50% with inspiration. Pericardium There is no pericardial effusion. Large left pleural effusion. <Conclusion> The left ventricle is normal size. There is normal left ventricular wall thickness. Left ventricular systolic function is normal. LVEF is 60-65%. Left atrium is moderately dilated. Right atrium is moderately dilated. Mild aortic valve sclerosis. Mild aortic regurgitation. Trace mitral regurgitation. Trace tricuspid regurgitation. Mild pulmonary hypertension. The RVSP is 40-45 mmHg. IVC is normal in size and collapses >50% with inspiration. Large left pleural effusion. <ELECTRONICALLY SIGNED> By: Oniel Wellington MD, FACC 01/16/20 1540 1540 1540 Oniel Wellington MD, FACC /INF
[2020-01-16 15:53] LABS: BF RBC 1234 /mm3; TOTAL CELL COUNT 273 /mm3
[2020-01-16 16:11] LABS: TOTAL VOLUME 2060 ml
[2020-01-16 16:12] LABS: CLARITY HAZY
[2020-01-16 16:32] LABS: BF LYMPHOCYTES 10 %; BF POLYS 90 %; BF TISSUE 100 /100 WBC
[2020-01-16 16:33] LABS: BF OTHER CYTO TO FOLLOW
[2020-01-17 00:09] VITALS: BP 151/49
[2020-01-17 02:06] LABS: HEPATITIS B SURFACE AG Negative (Negative)
[2020-01-17 03:39] LABS: ABSOLUTE EOSINOPHILS 0.2 thou/uL (0.0-0.7); ABSOLUTE LYMPHOCYTES 0.4 thou/uL (0.8-5.3); ABSOLUTE MONOCYTES 0.5 thou/uL (0.0-1.2); ABSOLUTE NEUTROPHILS 3.5 thou/uL (1.6-8.1); BASOPHILS 0.8 %; HEMATOCRIT 29.3 % (42.0-52.0); HEMOGLOBIN 10.2 gm/dL (14.0-18.0); LYMPHOCYTES 8.8 %; MCHC 34.7 g/dL (28.0-37.0); MCV 92.3 fL (80.0-100.0); MPV 9.6 fl. (7.2-11.1); NUCLEATED RBCS 0 /100WBC; PLATELET COUNT* 147 thou/uL (150-400); POLYS 75.4 %; RBC 3.17 mil/uL (4.50-6.00); RDW-CV 15.6 % (10.5-14.5); WBC 4.7 thou/uL (4.0-11.0)
[2020-01-17 04:00] LABS: ALBUMIN 2.6 g/dL (3.4-5.0); CALCIUM 7.7 mg/dL (8.5-10.1); CREATININE 4.5 mg/dL (0.6-1.3); MAGNESIUM 1.7 mg/dL (1.8-2.4); POTASSIUM 4.8 mmol/L (3.5-5.1); TOTAL BILIRUBIN 0.7 mg/dL (<0.1-1.0); TOTAL PROTEIN 5.6 g/dL (6.4-8.2)
[2020-01-17 08:21] VITALS: BP 121/49
--- NOTE | 2020-01-17 11:15 | CON ---
[address] [address] CONSULTATION Name: WINDY MAR V Room: [address] IN .R.#: [id number] Admission: 01/13/20 Attend Phys: Scooter Saez MD Discharge: Date of : 38 Report #: [id number] THIS REPORT FOR: //name// cc: Moody Dalal Steve T. DO ~ THIS REPORT FOR: //name// CC: Scooter Dalal DATE OF SERVICE: 01/16/2020 REQUESTING PHYSICIAN: Dr. Waddell. INDICATION FOR CONSULTATION: Pleural effusion. HISTORY OF PRESENT ILLNESS: An 79-year-old gentleman with past medical history is as mentioned below. This does include a history of esophageal cancer for which he had surgery performed around 10 years ago. The patient does have an extensive history of smoking as well, he has discontinued when he was diagnosed with esophageal malignancy. The patient's baseline creatinine is normal at 1.2 last year and a 1.3 in July of this year. The patient was admitted earlier with pneumonia with aspiration suspected in July and then subsequently did have an admission with acute renal failure about a month ago as well. At this time, the patient is admitted again with fatigue and weakness. Initially he stated he had no shortness of breath; however, when I asked him directly it does appear that he has significant shortness of breath on exertion, what appears to be referring to his no shortness of breath at rest. The patient was found to be in acute renal failure on admission, was also hypotensive. See record of vasopressors ordered; however, it appears that he did not require vasopressors. He did receive bicarbonate infusion, which was ordered by the Nephrology service. He does have a significant metabolic acidosis on his initial arterial blood gas. The patient since then has been placed on hemodialysis and in fact has femoral access for dialysis. This morning, he was seen on hemodialysis. His blood pressure does remain on the lower side at around 104/40. The patient did undergo thoracentesis on 01/13. It shows primarily monocyte dominant exudative pleural effusion. The patient also did have pulmonary vascular congestion initially, which has subsequently improved. The patient has also been bradycardic and that at one point, there was a consideration to place a pacemaker. The patient also was in the beta blockage previously. Cardiology service decided to hold off. The patient has a previous history of pleurodesis performed on the right side. Note that his current pleural effusion is on the left side. He does complain of a longstanding history of dysphagia. He says that he has to follow solids with liquids always to be able to swallow. The patient was anuric on [place] [address] CONSULTATION Name: WINDY MAR V Room: [address] IN .R.#: [id number] Admission: 01/13/20 Attend Phys: Scooter Saez MD Discharge: Date of : 38 Report #: [id number] been making small amounts of urine from 550 mL overnight. At this time at rest, he is not having any shortness of breath or cough, no chest pain, no upper respiratory complaints. He currently does not have swelling of lower extremities or calf pain. He is afebrile and also did not have abdominal complaints. I asked him 12 questions for review of systems: He answered to the negative except as mentioned above. PAST MEDICAL HISTORY: Esophageal cancer surgery performed around 10 years ago, right-sided pleural effusion with pleurodesis performed on the right side. Baseline creatinine is normal in 2019 and only mildly elevated to 1.3 in July. COPD is mentioned on the records, the patient was not aware of this. However, he does take albuterol at home. Hypertension. Diabetes. The patient's last available echocardiogram is from July and shows a normal left ventricular ejection fraction at 65% without significant elevation in right heart pressures. SOCIAL HISTORY: There is an extensive history of smoking up to 2 packs a day for several decades. He says he discontinued around 10 years ago. No known history of heavy alcohol use or illegal drug use. CURRENT MEDICATIONS: List in [facility] reviewed. HOME MEDICATIONS: List in [facility] reviewed as well. ALLERGIES: No known drug allergies. FAMILY HISTORY: There is no pertinent family history known at this time. PHYSICAL EXAMINATION: GENERAL: He is alert, awake and oriented. He is on room air. VITAL SIGNS: He has a pulse of 48 and a blood pressure of 101/40. He was having hemodialysis. His respiratory rate was 15. He is afebrile with a temperature of 35.7. He is oxygenating at 96%. HEENT: Head is normocephalic and atraumatic. There is no throat erythema. NECK: Does not show raised JVP, asymmetry, mass or lymph nodes. CHEST: Symmetrical expansion on inspection and palpation. On auscultation, breath sounds are decreased at the left lung base. HEART: Regular. There is no murmur. ABDOMEN: Soft and nontender. EXTREMITIES: Lower extremities show no edema, no calf tenderness. SKIN: Dry and intact. NEUROLOGICAL: Moves all extremities bilaterally equally and spontaneously with no focal deficit identified. LABORATORY DATA: The patient's CT chest performed on 01/12 is reviewed. The patient's chest x-rays are also reviewed. Initially, there is an increase in [facility] [address] [place] [address] CONSULTATION Name: WINDY MAR V Room: [address] ADM IN M.R.#: [id number] Admission: 01/13/20 Attend Phys: Scooter Saez MD Discharge: Date of : 38 Report #: [id number] pulmonary vascular congestion. There is a large pleural effusion on the left side. The patient has subsequently had thoracentesis. Subsequent to the thoracentesis there is a significant reduction in size of the pleural effusion on the left side. However, a significant pleural effusion still persists. I see infiltrates at the left lung base as well, infiltrate in the left lung base appears to be significantly worse compared with the patient's previous available CT from July. The patient's pulmonary vascular congestion is resolved on the new chest x-ray performed today. The patient's thoracentesis results show an exudative pleural effusion, which is monocyte predominant. There are 2 blood cultures, which are positive for Staphylococcus capitis and Staphylococcus epidermidis. The patient's arterial blood gases done on 01/12 as well as lab work in [facility] is reviewed, significant initial hyperkalemia with improvement subsequently are noted. ASSESSMENT AND PLAN: 1. Pleural effusion/pulmonary infiltrates. There are some infiltrates on his previous CT as well. However, at first glance, these appear worse in the new CT. This is an exudative pleural effusion, which is not typical to be seen with fluid overload alone. Fact that his monocyte predominant appears to indicate a chronic or subacute etiology; however, at first glance, I feel that the left lower lobe infiltrate does look worse. As a significant size pleural effusion is still persisting, I recommended proceeding with thoracentesis this afternoon. Again after the thoracentesis had been performed, we will reassess the left chest by CT chest without contrast. If significant infiltrates are persisting, then in addition to linezolid, I am inclined to also add gram-negative coverage again. Chronic obstructive pulmonary disease is mentioned on the records, he has a history of smoking. He is only on p.r.n. albuterol, does not appear to be actively bronchospastic, may benefit from a pulmonary function test at a later stage. 2. Dysphagia. Recommend aspiration precautions as well as video swallow. 3. Acute renal failure. The patient is on hemodialysis. Blood pressure was on the lower side. I reviewed with Dr. Morrell and ordered one dose of albumin as the patient may also drop blood pressure as a result of the thoracentesis planned. Recommend following blood pressures closely. 4. Bradycardia. Cardiology notes are reviewed. 5. Fluid overload. It does look better with therapy. I would favor also doing a 2D echo. 6. He has a [place] [address] CONSULTATION Name: WINDY MAR V Room: [address] IN [facility].#: [id number] Admission: 01/13/20 Attend Phys: Scooter Saez MD Discharge: Date of : 38 Report #: [id number] 7. History of pleurodesis on the right side, 8. Staph Bacteremia. On Zyvox <ELECTRONICALLY SIGNED> By: Nitin Jones MD 01/17/20 1115 1326 1433Anancy Jonse MD /nt
[2020-01-17 12:33] VITALS: BP 131/64
[2020-01-17 15:07] LABS: BODY FLUID LDH 91 IU/L (()); BODY FLUID PROTEIN 2.8 g/dL (())
[2020-01-17 15:49] LABS: CLARITY CLOUDY; SOURCE THORACENTESIS
[2020-01-17 16:20] LABS: TOTAL VOLUME 1500 ml
[2020-01-17 16:24] LABS: BF RBC 3392 /mm3; TOTAL CELL COUNT 172 /mm3
[2020-01-17 17:02] VITALS: BP 147/63
[2020-01-17 17:02] LABS: BF EOSINOPHILS 1 %; BF LYMPHOCYTES 23 %; BF MONOCYTES 57 %; BF POLYS 19 %
--- NOTE | 2020-01-17 17:06 | PATH ---
[facility] [address] [place] [address] PATHOLOGY RPT PROCEDURE Name: WINDY MAR V Room: [address] IN .R.#: [id number] Admission: 01/13/20 Date of : 38 Discharge: Report #: [id number] Path Case #: [id number] Note [facility] Accession Number: [id number] TESTS RESULT FLAG UNITS REF RANGE LAB Clinician Provided Cytology Information No. of containers..01 Other (Miscellaneous) Source: LEFT PLEURAL FLUID DIAGNOSIS: 02 LEFT PLEURAL FLUID INCONCLUSIVE. FEW ATYPICAL CELLS, CAN NOT RULE OUT MALIGNANCY. SEE COMMENT. THIS INTERPRETATION INCLUDES EVALUATION OF A CELL BLOCK. COMMENT: SUBMISSION OF ADDITIONAL FRESH FLUID, IF AVAILABLE, MAY BE OF HELP IN MORE DEFINITIVE CLASSIFICATION. DISCUSSED WITH DR. STEPHIE CRUZ ON AFTERNOON OF 01/17/2020. REVIEWED WITH DR. ESTEFANIA CARTAGENA (CYTOPATHOLOGIST) WHO AGREES WITH THE DIAGNOSIS. Signed out by: 02 Yousif Zheng MD, Pathologist NPI- [id number] Performed by: Melo Sanford, General Foreman ([facility]) Gross description: 01 10ML, HAZT YELLOW, 1 TP 1 CB /LCS 01/15/2020 1650 Local FLAG LEGEND: L-Low Normal,H-High Normal,LL-Alert Low,HH-Alert High <-Panic Low,>-Panic High,A-Abnormal,AA-Critical Abnormal Performed at: [address] [place] [address] Brien Pro MD, [address] [address] Yousif Zheng MD, Specimen Comment: A courtesy copy of this report has been sent to [phone] Specimen Comment: Report sent to Performed at: [address], [place], [place] [id number] MD Brien Pro MD Phone: [phone]
[2020-01-18 04:54] LABS: HEMATOCRIT 26.6 % (42.0-52.0); HEMOGLOBIN 9.1 gm/dL (14.0-18.0); MCH 31.3 pg (26.0-34.0); MCHC 34.1 g/dL (28.0-37.0); MCV 91.7 fL (80.0-100.0); MPV 9.8 fl. (7.2-11.1); RBC 2.9 mil/uL (4.50-6.00); RDW-CV 15.6 % (10.5-14.5); WBC 4.2 thou/uL (4.0-11.0)
[2020-01-18 04:55] VITALS: BP 104/48
[2020-01-18 06:01] LABS: ALBUMIN 2.3 g/dL (3.4-5.0); CALCIUM 8.3 mg/dL (8.5-10.1); CREATININE 4.8 mg/dL (0.6-1.3); MAGNESIUM 1.7 mg/dL (1.8-2.4); POTASSIUM 4.7 mmol/L (3.5-5.1); TOTAL BILIRUBIN 0.7 mg/dL (<0.1-1.0); TOTAL PROTEIN 5.1 g/dL (6.4-8.2)
[2020-01-18 07:22] LABS: APTT 32.9 Seconds (25.0-31.3); INR 1.2
[2020-01-18 08:30] VITALS: BP 119/48
[2020-01-18 12:06] VITALS: BP 101/60
[2020-01-18 16:09] VITALS: BP 113/55
[2020-01-18 20:20] VITALS: BP 126/57
[2020-01-19 04:00] VITALS: BP 123/61
[2020-01-19 07:18] LABS: HEMATOCRIT 27.2 % (42.0-52.0); HEMOGLOBIN 9.5 gm/dL (14.0-18.0); MCHC 34.8 g/dL (28.0-37.0); MCV 91.9 fL (80.0-100.0); MPV 9.4 fl. (7.2-11.1); RBC 2.96 mil/uL (4.50-6.00); WBC 4.6 thou/uL (4.0-11.0)
[2020-01-19 07:27] LABS: CALCIUM 7.8 mg/dL (8.5-10.1); CREATININE 5.1 mg/dL (0.6-1.3); MAGNESIUM 1.7 mg/dL (1.8-2.4); POTASSIUM 4.7 mmol/L (3.5-5.1)
[2020-01-19 12:00] VITALS: BP 138/62
[2020-01-19 15:06] LABS: BODY FLUID LDH 101 IU/L (()); BODY FLUID PROTEIN 2.6 g/dL (())
[2020-01-19 16:06] LABS: BODY FLUID PH 7.7 (Not Estab.)
[2020-01-19 16:06] LABS: BODY FLUID PH 7.5 (Not Estab.)
[2020-01-19 16:06] LABS: BODY FLUID PH 7.8 (Not Estab.)
[2020-01-19 16:07] VITALS: BP 105/51
[2020-01-19 16:24] LABS: SOURCE PLEURAL
[2020-01-20 04:40] VITALS: BP 136/62
[2020-01-20 05:11] LABS: ABSOLUTE EOSINOPHILS 0.2 thou/uL (0.0-0.7); ABSOLUTE LYMPHOCYTES 0.4 thou/uL (0.8-5.3); ABSOLUTE MONOCYTES 0.5 thou/uL (0.0-1.2); ABSOLUTE NEUTROPHILS 3.3 thou/uL (1.6-8.1); BASOPHILS 0.5 %; EOSINOPHILS 4.3 %; HEMATOCRIT 27.7 % (42.0-52.0); HEMOGLOBIN 9.6 gm/dL (14.0-18.0); LYMPHOCYTES 9.2 %; MCH 31.9 pg (26.0-34.0); MCHC 34.5 g/dL (28.0-37.0); MCV 92.3 fL (80.0-100.0); MONOCYTES 10.3 %; MPV 9.2 fl. (7.2-11.1); NUCLEATED RBCS 0 /100WBC; PLATELET COUNT* 110 thou/uL (150-400); POLYS 75.7 %; RBC 3.01 mil/uL (4.50-6.00); RDW-CV 15.4 % (10.5-14.5); WBC 4.4 thou/uL (4.0-11.0)
[2020-01-20 05:22] LABS: ALBUMIN 2.3 g/dL (3.4-5.0); CALCIUM 7.8 mg/dL (8.5-10.1); CREATININE 5.2 mg/dL (0.6-1.3); MAGNESIUM 1.7 mg/dL (1.8-2.4); POTASSIUM 4.3 mmol/L (3.5-5.1); TOTAL BILIRUBIN 0.6 mg/dL (<0.1-1.0); TOTAL PROTEIN 5.4 g/dL (6.4-8.2)
[2020-01-20 08:00] VITALS: BP 140/60
[2020-01-20 12:06] LABS: GLOMERULR BASEM MEMBRN AB 20 units (0-20)
[2020-01-20 15:07] LABS: GLOBULIN TOTAL 2.4 g/dL (2.2-3.9); M-SPIKE Not Observed g/dL (Not Observed)
[2020-01-20 16:24] VITALS: BP 124/60
--- NOTE | 2020-01-20 18:12 | OP ---
[address] [address] OPERATIVE REPORT Name: ISABELAWINDY Goldberg Room: [address] IN M.R.#: [id number] Admission: 01/13/20 Attend Phys: Scooter Saez MD Discharge: Date of : 38 Report #: [id number] THIS REPORT FOR: //name// cc: Moody Dalal Steve T. DO ~ THIS REPORT FOR: //name// CC: Scooter Dalal DATE OF SERVICE: 01/18/2020 PREOPERATIVE DIAGNOSIS: End-stage renal disease. POSTOPERATIVE DIAGNOSIS: End-stage renal disease. PROCEDURES: 1. Ultrasound guidance for venous access, left internal jugular vein. 2. Tunneled dialysis catheter placement, left internal jugular vein. SURGEON: Michael Heath MD LIST OF FIRST JOB IDEAS: None. ANESTHESIA: Local sedation. COMPLICATIONS: None. ESTIMATED BLOOD LOSS: Minimal. FINDINGS ON ULTRASOUND: 1. 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 2. The left internal jugular vein is widely patent and adequate for line placement. DESCRIPTION OF PROCEDURE: Informed consent was obtained from the patient with risks including but not limited to bleeding, pain, , heart attack, stroke, pneumothorax. The patient understood these risks and was agreeable to proceed. The patient was taken to the angio suite and placed in supine position. Sedation was initiated. Left neck and chest were prepped and draped in the usual sterile fashion. Ultrasound had been performed prior to prepping, which showed that the right internal jugular vein was occluded. Thus, the left internal jugular vein was chosen. Timeout was performed. I infused 10 mL of 1% lidocaine throughout the procedure for local anesthetic. Under ultrasound guidance with an image saved, I cannulated the [place] [address] OPERATIVE REPORT Name: WINDY MAR V Room: [address]#: [id number] Admission: 01/13/20 Attend Phys: Scooter Saez MD Discharge: Date of : 38 Report #: [id number] without difficulty. I used Seldinger technique to exchange out for sequential dilators and then a sheath. I tunneled the catheter from the anterior chest wall up to the neck access point. I floated the catheter down the sheath. I removed the peel-away sheath around the catheter. I used fluoroscopy to assure correct positioning of the tip within the right atrium. I closed the neck incision with a Monocryl stitch and secured the catheter to the anterior chest wall with the same. Both ports flushed without difficulty. Catheter was packed with 1000 units per mL of heparin. The patient tolerated the procedure well and was taken alert and awake to recovery room in good condition. All needle and instrument counts were correct. <ELECTRONICALLY SIGNED> By: Michael Heath MD 01/20/20 1812 0817 0835MD marcy Causey
[2020-01-20 19:07] LABS: ANA INTERPRETATION Negative (())
[2020-01-20 20:00] VITALS: BP 122/52
[2020-01-21 05:04] VITALS: BP 113/46
[2020-01-21 06:04] LABS: ABSOLUTE EOSINOPHILS 0.2 thou/uL (0.0-0.7); ABSOLUTE LYMPHOCYTES 0.4 thou/uL (0.8-5.3); ABSOLUTE MONOCYTES 0.5 thou/uL (0.0-1.2); ABSOLUTE NEUTROPHILS 2.6 thou/uL (1.6-8.1); BASOPHILS 0.9 %; EOSINOPHILS 4.9 %; HEMATOCRIT 25.7 % (42.0-52.0); LYMPHOCYTES 10.6 %; MCH 32.1 pg (26.0-34.0); MCHC 35.1 g/dL (28.0-37.0); MCV 91.5 fL (80.0-100.0); MONOCYTES 12.8 %; MPV 9.7 fl. (7.2-11.1); NUCLEATED RBCS 0 /100WBC; PLATELET COUNT* 90 thou/uL (150-400); POLYS 70.8 %; RDW-CV 15.6 % (10.5-14.5); WBC 3.7 thou/uL (4.0-11.0)
[2020-01-21 06:18] LABS: CALCIUM 7.5 mg/dL (8.5-10.1); MAGNESIUM 1.6 mg/dL (1.8-2.4)
[2020-01-21 06:20] LABS: CREATININE 4.1 mg/dL (0.6-1.3)
--- NOTE | 2020-01-21 07:08 | PATH ---
[address] [address] PATHOLOGY RPT PROCEDURE Name: WINDY MAR V Room: [address] IN [facility]#: [id number] Admission: 01/13/20 Date of : 38 Discharge: Report #: [id number] Path Case #: [id number] Note [facility] Accession Number: [id number] TESTS RESULT FLAG UNITS REF RANGE LAB Clinician Provided Cytology Information No. of containers..01 Other (Miscellaneous) Source: LEFT PLEURAL FLUID DIAGNOSIS: 02 LEFT PLEURAL FLUID NEGATIVE FOR MALIGNANT CELLS. MESOTHELIAL CELLS AND FEW, PREDOMINANTLY CHRONIC INFLAMMATORY CELLS. THIS INTERPRETATION INCLUDES EVALUATION OF A CELL BLOCK. Signed out by: 02 Yousif Zheng MD, Pathologist NPI- [id number] Performed by: 01 Minerva Stone, Trailhead Maintenance Worker ([facility]) Gross description: 01 50ML, PALE YELLOW, 1 TP 1 CB /LCS 01/17/2020 1125 Local FLAG LEGEND: L-Low Normal,H-High Normal,LL-Alert Low,HH-Alert High <-Panic Low,>-Panic High,A-Abnormal,AA-Critical Abnormal Performed at: [address] [place] [address] Brien Pro MD, [address] [place] [address] [address] [facility], [place] [address] Yousif Zheng MD, Specimen Comment: A courtesy copy of this report has been sent to [phone] Specimen Comment: Report sent to Performed at: [address], [place], [place] [id number] MD Brien Pro MD Phone: [phone]
[2020-01-21 08:00] VITALS: BP 120/57
[2020-01-21 13:09] VITALS: BP 115/53
--- NOTE | 2020-01-21 16:06 | PATH ---
[address] [address] PATHOLOGY RPT PROCEDURE Name: WINDY MAR V Room: [address] IN [facility]#: [id number] Admission: 01/13/20 Date of : 38 Discharge: Report #: [id number] Path Case #: [id number] Note [facility] Accession Number: [id number] TESTS RESULT FLAG UNITS REF RANGE LAB Clinician Provided Cytology Information No. of containers..01 Other (Miscellaneous) Source: 01 L.PLEURAL DIAGNOSIS: 02 L.PLEURAL NEGATIVE FOR MALIGNANT EPITHELIAL CELLS. REACTIVE MESOTHELIAL CELLS ARE PRESENT. THIS INTERPRETATION INCLUDES EVALUATION OF A CELL BLOCK. MILD CHRONIC INFLAMMATION. Pathologist ICD10: 02 R79.89 Signed out by: 02 Haydee Beasley MD, Pathologist NPI- [id number] Performed by: Melo Sanford, Neighborhood Aide ([facility]) Gross description: 01 50 ML, CLDY ORNG, 1 TP /LCS 01/20/2020 0815 Local FLAG LEGEND: L-Low Normal,H-High Normal,LL-Alert Low,HH-Alert High <-Panic Low,>-Panic High,A-Abnormal,AA-Critical Abnormal Performed at: [address] [place] [address] Brien Pro MD, [address] [address] Haydee Beasley MD, Specimen Comment: A courtesy copy of this report has been sent to [phone] Specimen Comment: [phone] Specimen Comment: Report sent to DR BLACKMON / DR BERNAL Specimen Comment: A duplicate report has been generated due to demographic updates. Performed at: [address], [place], [place] [id number] MD Brien Pro MD Phone: [phone]
[2020-01-21 16:41] LABS: SOURCE THORACENTESIS
[2020-01-21 17:11] VITALS: BP 134/54
[2020-01-21 18:09] LABS: COMPLEMENT-C4 18 mg/dL (14-44)
[2020-01-21 20:00] VITALS: BP 151/57
[2020-01-22 03:34] VITALS: BP 121/56
[2020-01-22 04:06] LABS: ABSOLUTE LYMPHOCYTES 0.4 thou/uL (0.8-5.3); MPV 8.4 fl. (7.2-11.1); PLATELET COUNT* 73 thou/uL (150-400)
[2020-01-22 04:08] LABS: ABSOLUTE EOSINOPHILS 0.2 thou/uL (0.0-0.7); ABSOLUTE MONOCYTES 0.4 thou/uL (0.0-1.2); ABSOLUTE NEUTROPHILS 2.5 thou/uL (1.6-8.1); BASOPHILS 1.1 %; HEMATOCRIT 26.8 % (42.0-52.0); HEMOGLOBIN 9.2 gm/dL (14.0-18.0); LYMPHOCYTES 11.5 %; MCH 31.7 pg (26.0-34.0); MCHC 34.4 g/dL (28.0-37.0); MCV 92.3 fL (80.0-100.0); MONOCYTES 11.8 %; NUCLEATED RBCS 0 /100WBC; POLYS 69.6 %; RDW-CV 15.7 % (10.5-14.5); WBC 3.6 thou/uL (4.0-11.0)
[2020-01-22 04:24] LABS: ALBUMIN 2.2 g/dL (3.4-5.0); CALCIUM 8.1 mg/dL (8.5-10.1); CREATININE 4.3 mg/dL (0.6-1.3); MAGNESIUM 1.9 mg/dL (1.8-2.4); TOTAL BILIRUBIN 0.5 mg/dL (<0.1-1.0); TOTAL PROTEIN 5.3 g/dL (6.4-8.2)
[2020-01-22 07:54] LABS: APTT 29.7 Seconds (25.0-31.3); INR 1.2; PROTIME 11.8 Seconds (9.20-11.50)
[2020-01-22 12:19] VITALS: BP 143/66
[2020-01-22 13:20] LABS: ABSOLUTE EOSINOPHILS 0.2 thou/uL (0.0-0.7); ABSOLUTE LYMPHOCYTES 0.4 thou/uL (0.8-5.3); ABSOLUTE MONOCYTES 0.4 thou/uL (0.0-1.2); ABSOLUTE NEUTROPHILS 2.9 thou/uL (1.6-8.1); BASOPHILS 0.9 %; EOSINOPHILS 5.1 %; HEMATOCRIT 29.2 % (42.0-52.0); HEMOGLOBIN 9.9 gm/dL (14.0-18.0); LYMPHOCYTES 9.7 %; MCH 31.6 pg (26.0-34.0); MONOCYTES 9.6 %; NUCLEATED RBCS 0 /100WBC; PLATELET COUNT* 71 thou/uL (150-400); POLYS 74.7 %; RBC 3.14 mil/uL (4.50-6.00); RDW-CV 15.9 % (10.5-14.5); WBC 3.9 thou/uL (4.0-11.0)
[2020-01-22 14:00] VITALS: BP 113/76; BP 125/78; BP 131/60
[2020-01-22 14:07] LABS: ANTI-DNA SCREEN <1 IU/mL (0-9); ANTI-RNP <0.2 AI (0.0-0.9)
[2020-01-22 16:26] VITALS: BP 121/62
[2020-01-22 20:00] VITALS: BP 143/73
[2020-01-23 04:00] VITALS: BP 129/59
[2020-01-23 06:04] LABS: ABSOLUTE EOSINOPHILS 0.2 thou/uL (0.0-0.7); ABSOLUTE LYMPHOCYTES 0.5 thou/uL (0.8-5.3); ABSOLUTE MONOCYTES 0.6 thou/uL (0.0-1.2); ABSOLUTE NEUTROPHILS 3.6 thou/uL (1.6-8.1); BASOPHILS 0.9 %; EOSINOPHILS 3.7 %; HEMATOCRIT 26.1 % (42.0-52.0); HEMOGLOBIN 9.2 gm/dL (14.0-18.0); LYMPHOCYTES 9.6 %; MCH 32.3 pg (26.0-34.0); MCHC 35.3 g/dL (28.0-37.0); MCV 91.5 fL (80.0-100.0); MONOCYTES 11.4 %; MPV 8.3 fl. (7.2-11.1); NUCLEATED RBCS 0 /100WBC; PLATELET COUNT* 100 thou/uL (150-400); POLYS 74.4 %; RBC 2.85 mil/uL (4.50-6.00); RDW-CV 15.5 % (10.5-14.5); WBC 4.9 thou/uL (4.0-11.0)
[2020-01-23 06:16] LABS: ALBUMIN 2.1 g/dL (3.4-5.0); CALCIUM 8.3 mg/dL (8.5-10.1); CREATININE 4.4 mg/dL (0.6-1.3); POTASSIUM 4.3 mmol/L (3.5-5.1); TOTAL BILIRUBIN 0.6 mg/dL (<0.1-1.0); TOTAL PROTEIN 5.2 g/dL (6.4-8.2)
[2020-01-23 08:00] VITALS: BP 142/57
[2020-01-23 12:00] VITALS: BP 131/68
[2020-01-23 16:00] VITALS: BP 119/50
[2020-01-23 19:50] VITALS: BP 113/51
[2020-01-24 05:00] VITALS: BP 123/50
[2020-01-24 08:00] VITALS: BP 121/51
[2020-01-24 11:27] LABS: ABSOLUTE BASOPHILS 0.1 thou/uL (0.0-0.2); ABSOLUTE EOSINOPHILS 0.2 thou/uL (0.0-0.7); ABSOLUTE LYMPHOCYTES 0.4 thou/uL (0.8-5.3); ABSOLUTE MONOCYTES 0.8 thou/uL (0.0-1.2); EOSINOPHILS 3.2 %; HEMATOCRIT 25.1 % (42.0-52.0); HEMOGLOBIN 8.7 gm/dL (14.0-18.0); LYMPHOCYTES 7.9 %; MCHC 34.7 g/dL (28.0-37.0); MCV 92.4 fL (80.0-100.0); MONOCYTES 14.3 %; MPV 8.5 fl. (7.2-11.1); NUCLEATED RBCS 0 /100WBC; PLATELET COUNT* 80 thou/uL (150-400); POLYS 73.6 %; RBC 2.71 mil/uL (4.50-6.00); RDW-CV 15.9 % (10.5-14.5); WBC 5.5 thou/uL (4.0-11.0)
[2020-01-24 11:36] LABS: CREATININE 4.5 mg/dL (0.6-1.3); MAGNESIUM 1.6 mg/dL (1.8-2.4); POTASSIUM 4.1 mmol/L (3.5-5.1)
[2020-01-24 11:50] VITALS: BP 109/43
--- NOTE | 2020-01-24 12:53 | IN ---
[address] [address] INTERIM NOTE Name: ISABELAWINDY Ashlyn Room: [address] IN M.R.#: [id number] Admission: 01/13/20 Attend Phys: Scooter Saez MD Discharge: Date of : 36 Report #: [id number] THIS REPORT FOR: //name// cc: Moody Dalal Steve T. DO ~ CC: Scooter Dalal DATE OF SERVICE: 01/21/2020 SUBJECTIVE: Feeling better. No complaints. OBJECTIVE: VITAL SIGNS: Blood pressure 121/56, heart rate is 52, temperature 96.6. MENTAL STATUS: Alert and oriented x 3. There is no dyspnea. No jaundice. LABORATORY DATA: Fluid cytology negative for malignancy. ASSESSMENT AND PLAN: Pleural effusion. I discussed cytology results. I explained that he does not have malignancy. Hence I appreciated, I will sign off on this case. <ELECTRONICALLY SIGNED> By: Tomas Beck MD 01/24/20 1253 1319 1330Tomas Beck MD /nt
[2020-01-24 16:00] VITALS: BP 107/55
[2020-01-24 20:00] VITALS: BP 128/57
[2020-01-25] VITALS: BP 90/54
[2020-01-25 04:00] VITALS: BP 110/54
[2020-01-25 05:34] LABS: ABSOLUTE EOSINOPHILS 0.2 thou/uL (0.0-0.7); ABSOLUTE LYMPHOCYTES 0.4 thou/uL (0.8-5.3); ABSOLUTE MONOCYTES 0.9 thou/uL (0.0-1.2); ABSOLUTE NEUTROPHILS 3.7 thou/uL (1.6-8.1); BASOPHILS 0.8 %; EOSINOPHILS 3.1 %; HEMATOCRIT 25.3 % (42.0-52.0); HEMOGLOBIN 8.8 gm/dL (14.0-18.0); LYMPHOCYTES 8.1 %; MCH 32.2 pg (26.0-34.0); MCHC 34.8 g/dL (28.0-37.0); MCV 92.4 fL (80.0-100.0); MONOCYTES 17.6 %; MPV 8.8 fl. (7.2-11.1); NUCLEATED RBCS 0 /100WBC; PLATELET COUNT* 78 thou/uL (150-400); POLYS 70.4 %; RBC 2.74 mil/uL (4.50-6.00); RDW-CV 15.7 % (10.5-14.5); WBC 5.3 thou/uL (4.0-11.0)
[2020-01-25 05:48] LABS: ALBUMIN 2.1 g/dL (3.4-5.0); CALCIUM 8.6 mg/dL (8.5-10.1); CREATININE 4.4 mg/dL (0.6-1.3); PHOSPHORUS* 4.1 mg/dL (2.5-4.9); POTASSIUM 4.1 mmol/L (3.5-5.1)
[2020-01-25 05:51] LABS: ALBUMIN 2.1 g/dL (3.4-5.0); CALCIUM 8.4 mg/dL (8.5-10.1); CREATININE 4.5 mg/dL (0.6-1.3); POTASSIUM 4.2 mmol/L (3.5-5.1); TOTAL BILIRUBIN 0.5 mg/dL (<0.1-1.0)
[2020-01-25 08:00] VITALS: BP 131/43
[2020-01-25 12:35] VITALS: BP 129/98
[2020-01-25 16:32] VITALS: BP 131/51
[2020-01-25 20:00] VITALS: BP 138/60
[2020-01-26 04:00] VITALS: BP 122/60
[2020-01-26 05:11] LABS: ABSOLUTE EOSINOPHILS 0.2 thou/uL (0.0-0.7); ABSOLUTE LYMPHOCYTES 0.5 thou/uL (0.8-5.3); ABSOLUTE NEUTROPHILS 3.7 thou/uL (1.6-8.1); BASOPHILS 0.9 %; EOSINOPHILS 4.5 %; HEMATOCRIT 23.5 % (42.0-52.0); HEMOGLOBIN 8.2 gm/dL (14.0-18.0); LYMPHOCYTES 9.8 %; MCH 31.7 pg (26.0-34.0); MCHC 34.8 g/dL (28.0-37.0); MCV 91.3 fL (80.0-100.0); MONOCYTES 17.5 %; MPV 8.4 fl. (7.2-11.1); NUCLEATED RBCS 0 /100WBC; PLATELET COUNT* 76 thou/uL (150-400); POLYS 67.3 %; RBC 2.57 mil/uL (4.50-6.00); RDW-CV 15.5 % (10.5-14.5); WBC 5.5 thou/uL (4.0-11.0)
[2020-01-26 05:24] LABS: CREATININE 4.3 mg/dL (0.6-1.3); MAGNESIUM 1.6 mg/dL (1.8-2.4); PHOSPHORUS* 3.7 mg/dL (2.5-4.9); POTASSIUM 3.9 mmol/L (3.5-5.1)
[2020-01-26 08:00] VITALS: BP 132/63
[2020-01-26 12:00] VITALS: BP 97/50
[2020-01-26 16:00] VITALS: BP 100/54
[2020-01-26 20:00] VITALS: BP 144/47
[2020-01-27 05:09] VITALS: BP 109/63
[2020-01-27 05:39] LABS: ABSOLUTE EOSINOPHILS 0.2 thou/uL (0.0-0.7); ABSOLUTE LYMPHOCYTES 0.5 thou/uL (0.8-5.3); ABSOLUTE MONOCYTES 0.7 thou/uL (0.0-1.2); ABSOLUTE NEUTROPHILS 3.8 thou/uL (1.6-8.1); BASOPHILS 0.6 %; EOSINOPHILS 3.9 %; HEMATOCRIT 22.8 % (42.0-52.0); HEMOGLOBIN 7.9 gm/dL (14.0-18.0); LYMPHOCYTES 9.5 %; MCH 31.9 pg (26.0-34.0); MCHC 34.7 g/dL (28.0-37.0); MCV 91.7 fL (80.0-100.0); MONOCYTES 13.5 %; MPV 8.7 fl. (7.2-11.1); NUCLEATED RBCS 0 /100WBC; PLATELET COUNT* 95 thou/uL (150-400); POLYS 72.5 %; RBC 2.49 mil/uL (4.50-6.00); RDW-CV 15.5 % (10.5-14.5); WBC 5.3 thou/uL (4.0-11.0)
[2020-01-27 05:51] LABS: CALCIUM 7.8 mg/dL (8.5-10.1); CREATININE 4.2 mg/dL (0.6-1.3); MAGNESIUM 1.6 mg/dL (1.8-2.4); POTASSIUM 3.7 mmol/L (3.5-5.1)
[2020-01-27 08:00] VITALS: BP 128/62
[2020-01-27 12:00] VITALS: BP 113/53
[2020-01-27 16:00] VITALS: BP 114/55
[2020-01-27 20:40] VITALS: BP 129/62
== END 2020-01-27 22:52 | disposition short-term general hospital (02) | DRG 177 ==
LOC: M.ERS 10:40 → M.ICU 14:24 → M.TBA-ER 14:24 → M.ICU 14:24 → M.2W 01-17 19:15
PROVIDERS: Internal Medicine; Internal Medicine Cardiovascular Disease; Internal Medicine Critical Care Medicine; Internal Medicine Nephrology; Nurse Practitioner Family; Personal Emergency Response Attendant; Surgery Vascular Surgery; ADMIT Internal Medicine; ATTEND Internal Medicine
PROC: 0W9B3ZZ Drainage of Left Pleural Cavity, Percutaneous Approach (ICD-10-PCS; 2020-01-14)
PROC: 5A1D70Z Performance of Urinary Filtration, Intermittent, Less than 6 Hours Per Day (ICD-10-PCS; principal; 2020-01-15)
PROC: 06HY33Z Insertion of Infusion Device into Lower Vein, Percutaneous Approach (ICD-10-PCS; principal; 2020-01-15)
PROC: 0W9B3ZZ Drainage of Left Pleural Cavity, Percutaneous Approach (ICD-10-PCS; 2020-01-16)
PROC: 5A1D70Z Performance of Urinary Filtration, Intermittent, Less than 6 Hours Per Day (ICD-10-PCS; 2020-01-16)
PROC: 0W9B3ZZ Drainage of Left Pleural Cavity, Percutaneous Approach (ICD-10-PCS; 2020-01-17)
PROC: 0JH63XZ Insertion of Tunneled Vascular Access Device into Chest Subcutaneous Tissue and Fascia, Percutaneous Approach (ICD-10-PCS; 2020-01-18)
PROC: 05HN33Z Insertion of Infusion Device into Left Internal Jugular Vein, Percutaneous Approach (ICD-10-PCS; 2020-01-18)
PROC: B544ZZA Ultrasonography of Left Jugular Veins, Guidance (ICD-10-PCS; 2020-01-18)
PROC: 5A1D70Z Performance of Urinary Filtration, Intermittent, Less than 6 Hours Per Day (ICD-10-PCS; 2020-01-20)
PROC: 0W9B30Z Drainage of Left Pleural Cavity with Drainage Device, Percutaneous Approach (ICD-10-PCS; 2020-01-22)
PROC: 30233R1 Transfusion of Nonautologous Platelets into Peripheral Vein, Percutaneous Approach (ICD-10-PCS; 2020-01-22)
DX: J15.6 Pneumonia due to other Gram-negative bacteria (principal); A41.9 Sepsis, unspecified organism; N17.0 Acute kidney failure with tubular necrosis; R65.21 Severe sepsis with septic shock; J96.21 Acute and chronic respiratory failure with hypoxia; I50.33 Acute on chronic diastolic (congestive) heart failure; I13.0 Hypertensive heart and chronic kidney disease with heart failure and stage 1 through stage 4 chronic kidney disease, or unspecified chronic kidney disease; E87.1 Hypo-osmolality and hyponatremia; I82.C12 Acute embolism and thrombosis of left internal jugular vein; E87.2 Acidosis; J44.0 Chronic obstructive pulmonary disease with (acute) lower respiratory infection; J93.9 Pneumothorax, unspecified; J91.8 Pleural effusion in other conditions classified elsewhere; E87.5 Hyperkalemia; D64.9 Anemia, unspecified; I25.10 Atherosclerotic heart disease of native coronary artery without angina pectoris; E87.70 Fluid overload, unspecified; I95.2 Hypotension due to drugs; R00.1 Bradycardia, unspecified; I27.20 Pulmonary hypertension, unspecified; R60.1 Generalized edema; E11.22 Type 2 diabetes mellitus with diabetic chronic kidney disease; D69.6 Thrombocytopenia, unspecified; E78.5 Hyperlipidemia, unspecified; N40.0 Benign prostatic hyperplasia without lower urinary tract symptoms; T50.995A Adverse effect of other drugs, medicaments and biological substances, initial encounter; N18.3 Chronic kidney disease, stage 3 (moderate); Z85.01 Personal history of malignant neoplasm of esophagus; Z92.21 Personal history of antineoplastic chemotherapy; Z92.3 Personal history of irradiation; Z79.4 Long term (current) use of insulin; Z79.899 Other long term (current) drug therapy; Z79.82 Long term (current) use of aspirin; Z87.891 Personal history of nicotine dependence; Y92.89 Other specified places as the place of occurrence of the external cause; Z03.818 Encounter for observation for suspected exposure to other biological agents ruled out

== ENCOUNTER 2020-05-12 03:28 | Emergency (ER) | payer MEDICARE, BC ==
[~2020-05-12] VITALS: Ht 177.8 cm; Wt 77.6 kg
[2020-05-12 03:29] VITALS: BP 131/62
[2020-05-12] MEDS ORDERED: LANTUS SUBQ (03:42)
[2020-05-12] MEDS ORDERED: CALCITRIOL0.25 MCG PO (03:42)
[2020-05-12] MEDS ORDERED: ELIQUIS2.5 MG PO (03:42)
[2020-05-12] MEDS ORDERED: LORAZEPAM 1 MG T1 MG PO (03:46)
[2020-05-12] MEDS ORDERED: MIDODRINE HCL10 MG PO (03:46)
[2020-05-12] MEDS ORDERED: MIRALAX119 GM PO (03:47)
[2020-05-12] MEDS ORDERED: FISH OIL 1,0001 EAC9 PO (03:48)
[2020-05-12] MEDS ORDERED: FLOMAX0.4 MG PO (03:48)
[2020-05-12] MEDS ORDERED: TORSEMIDE20 MG PO (03:49)
[2020-05-12 04:02] LABS: ABSOLUTE EOSINOPHILS 0.1 thou/uL (0.0-0.7); ABSOLUTE LYMPHOCYTES 0.4 thou/uL (0.8-5.3); ABSOLUTE MONOCYTES 0.4 thou/uL (0.0-1.2); ABSOLUTE NEUTROPHILS 3.2 thou/uL (1.6-8.1); BASOPHILS 0.3 %; EOSINOPHILS 1.5 %; HEMATOCRIT 28.3 % (42.0-52.0); HEMOGLOBIN 9.4 gm/dL (14.0-18.0); LYMPHOCYTES 9.1 %; MCH 31.2 pg (26.0-34.0); MCHC 33.1 g/dL (28.0-37.0); MCV 94.4 fL (80.0-100.0); MONOCYTES 10.2 %; MPV 8.6 fl. (7.2-11.1); NUCLEATED RBCS 0 /100WBC; PLATELET COUNT* 181 thou/uL (150-400); POLYS 78.9 %; RDW-CV 15.3 % (10.5-14.5)
[2020-05-12 04:22] LABS: PCO2 42.9 mmHg (35.0-45.0); pH 7.379 (7.340-7.450)
[2020-05-12 04:23] LABS: BE -0.5 mmol/L (-2 to +3)
[2020-05-12 04:36] LABS: INFLUENZA A ANTIGEN Negative (Negative); INFLUENZA B ANTIGEN Negative (Negative)
[2020-05-12 04:37] LABS: APTT 34.4 Seconds (25.0-31.3); INR 1.3; PROTIME 13.4 Seconds (9.20-11.50)
[2020-05-12 05:03] LABS: CALCIUM 8.3 mg/dL (8.5-10.1); CREATININE 2.9 mg/dL (0.6-1.3); POTASSIUM 3.7 mmol/L (3.5-5.1)
[2020-05-12 05:15] LABS: ALBUMIN 3.1 g/dL (3.4-5.0); MAGNESIUM 2.3 mg/dL (1.8-2.4); TOTAL BILIRUBIN 0.2 mg/dL (<0.1-1.0); TOTAL PROTEIN 6.9 g/dL (6.4-8.2)
[2020-05-12 06:54] LABS: URINE BILIRUBIN NEGATIVE (Negative); URINE BLOOD NEGATIVE (Negative); URINE CLARITY CLEAR; URINE COLOR YELLOW; URINE GLUCOSE-RANDOM NEGATIVE (Negative); URINE KETONES NEGATIVE (Negative); URINE LEUKOCYTES-REFLEX NEGATIVE (Negative); URINE NITRITE-REFLEX NEGATIVE (Negative); URINE PROTEIN NEGATIVE (Negative); URINE UROBILINOGEN 0.2 E.U./dl (0.2-1.0)
--- NOTE | 2020-05-12 07:17 | NUR ---
PT REPORTS THAT HE TOOK LANTUS 10 UNITS, HE "ALWAYS DOES" BUT AFTER INJECTING THE LANTUS THE PATIENT STATES THAT HE NOTICED THAT THE NEEDLE WAS BENT. PT THEN PROCEEDED TO TAKE ANOTHER 10 UNITS OF LANTUS AFTERWARDS. IT IS UNKNOWN IF IT COMMUNICATIONS SPECIALIST WAS GIVEN THIS INFORMATION.
[2020-05-12 08:20] VITALS: BP 129/68
--- NOTE | 2020-05-12 10:07 | EKG ---
[place] [address] ELECTROCARDIOGRAM REPORT Name: WINDY MAR V Room: [facility]#: [id number] Admission: 05/12/20 Attend Phys: Discharge: 05/12/20 Date of : 36 Date of Service: 05/12/20 0332 Report #: [id number] THIS REPORT FOR: //name// [facility] ED Test Date: 2020-05-12 Test Time: 03:32:41 Pat Name: WINDY MAR Department: Room: [place] [address] Gender: M Tag Meter Operator: UN : 1940 Requested By: Radha Heath Order Number: [id number] Swati MD: Devonte Christina Measurements Intervals [place] Rate: 57 P: MS: QRS: 40 QRSD: 166 T: 16 QT: 535 QTc: 521 Interpretive Statements Atrial fibrillation Ventricular premature complex Right bundle branch block low voltage Compared to ECG 01/15/2020 07:52:03 Ventricular premature complex(es) now present rate has increased Electronically Signed On 05-12-2020 10:07:35 ORTHODONTIST VICE PRESIDENT by Devonte Christina [email or web address] <ELECTRONICALLY SIGNED> By: Devonte Christina MD, FACC 05/12/20 1007 0332 0332 Devonte Christina MD, FAC /EPI
== END 2020-05-12 08:23 ==
LOC: M.ERS 03:28 → M.TBA-ER 05:25 → M.ERS 05:25 → M.TBA-ER 08:33
PROVIDERS: Personal Emergency Response Attendant
DX: E11.649 Type 2 diabetes mellitus with hypoglycemia without coma (principal); R41.82 Altered mental status, unspecified; Z20.828 Contact with and (suspected) exposure to other viral communicable diseases; I13.0 Hypertensive heart and chronic kidney disease with heart failure and stage 1 through stage 4 chronic kidney disease, or unspecified chronic kidney disease; E11.22 Type 2 diabetes mellitus with diabetic chronic kidney disease; N18.30 Chronic kidney disease, stage 3 unspecified; I50.32 Chronic diastolic (congestive) heart failure; J44.9 Chronic obstructive pulmonary disease, unspecified; Z87.01 Personal history of pneumonia (recurrent); Z79.899 Other long term (current) drug therapy; Z87.891 Personal history of nicotine dependence

== ENCOUNTER 2020-05-30 10:27 | Emergency (ER) | payer MEDICARE, BC ==
[~2020-05-30] VITALS: Ht 177.8 cm; Wt 71.2 kg
[~2020-05-30 10:27] MED LIST changes: +CALCITRIOL0.25 MCG PO; +ELIQUIS2.5 MG PO; +FISH OIL 1,0001 EAC9 PO; +LORAZEPAM 1 MG T1 MG PO; +MIDODRINE HCL10 MG PO; +MIRALAX119 GM PO; +TORSEMIDE20 MG PO
[2020-05-30 12:51] VITALS: BP 102/66
== END 2020-05-30 12:52 | disposition home or self-care (01) ==
LOC: M.ERS 10:27
DX: J90 Pleural effusion, not elsewhere classified (principal); J44.9 Chronic obstructive pulmonary disease, unspecified; I13.0 Hypertensive heart and chronic kidney disease with heart failure and stage 1 through stage 4 chronic kidney disease, or unspecified chronic kidney disease; E11.22 Type 2 diabetes mellitus with diabetic chronic kidney disease; N18.9 Chronic kidney disease, unspecified; I50.32 Chronic diastolic (congestive) heart failure; Z87.891 Personal history of nicotine dependence; Z87.01 Personal history of pneumonia (recurrent)

== ENCOUNTER 2020-06-02 05:44 | Inpatient (IN) | payer MEDICARE, BC ==
[~2020-06-02] VITALS: Ht 182.9 cm; Wt 77.6 kg
[2020-06-02] VITALS (25 sets, daily range): BP systolic 84–137; BP diastolic 43–76
--- NOTE | ~2020-06-02 | EKG ---
[place] [address] ELECTROCARDIOGRAM REPORT Name: WINDY MAR V Room: [place] [address] ADM IN ..#: [id number] Admission: 06/02/20 Attend Phys: Marnie Waddell, Discharge: Date of : 36 Date of Service: 06/02/20 0551 Report #: [id number] THIS REPORT FOR: //name// [facility] ED Test Date: 2020-06-02 Test Time: 05:51:26 Pat Name: WINDY MAR Department: Room: [facility] Gender: M Surgical Supervisor: [facility] : 1940 Requested By: Yg Gonzalez Order Number: [id number] MD: Measurements Intervals [place] Rate: 75 P: DE: QRS: -42 QRSD: 162 T: 24 QT: 468 QTc: 523 Interpretive Statements Atrial fibrillation Right bundle branch block Anteroseptal infarct, age indeterminate Compared to ECG 05/12/2020 03:32:41 Myocardial infarct finding now present Ventricular premature complex(es) no longer present [email or web address] By: 0551 0551 [place], [place] /[facility]
[2020-06-02 06:01] LABS: BE -2.6 mmol/L (-2 to +3)
[2020-06-02 06:06] LABS: PCO2 52.8 mmHg (35.0-45.0); PO2 397.4 mmHg (75.0-100.0); pH 7.284 (7.340-7.450)
[2020-06-02 06:08] LABS: ABSOLUTE EOSINOPHILS 0.1 thou/uL (0.0-0.7); ABSOLUTE LYMPHOCYTES 0.6 thou/uL (0.8-5.3); ABSOLUTE MONOCYTES 0.9 thou/uL (0.0-1.2); ABSOLUTE NEUTROPHILS 5.3 thou/uL (1.6-8.1); BASOPHILS 0.5 %; EOSINOPHILS 1.2 %; HEMATOCRIT 31.2 % (42.0-52.0); HEMOGLOBIN 10.3 gm/dL (14.0-18.0); LYMPHOCYTES 9.3 %; MCH 30.4 pg (26.0-34.0); MCHC 33.2 g/dL (28.0-37.0); MCV 91.5 fL (80.0-100.0); MONOCYTES 12.5 %; MPV 8.4 fl. (7.2-11.1); NUCLEATED RBCS 0 /100WBC; PLATELET COUNT* 380 thou/uL (150-400); POLYS 76.5 %; RBC 3.41 mil/uL (4.50-6.00); RDW-CV 15.7 % (10.5-14.5); WBC 6.9 thou/uL (4.0-11.0)
[2020-06-02 06:32] LABS: ANION GAP 19 mmol/L (7-16); BUN 80 mg/dL (7-18); CALCIUM 8.8 mg/dL (8.5-10.1); CHLORIDE 98 mmol/L (98-107); CO2 24 mmol/L (21-32); CREATININE 3.9 mg/dL (0.6-1.3); POTASSIUM 3.8 mmol/L (3.5-5.1); SODIUM 141 mmol/L (136-145)
[2020-06-02 06:33] LABS: URINE BILIRUBIN NEGATIVE (Negative); URINE BLOOD NEGATIVE (Negative); URINE CLARITY CLEAR; URINE COLOR YELLOW; URINE GLUCOSE-RANDOM NEGATIVE (Negative); URINE KETONES NEGATIVE (Negative); URINE LEUKOCYTES-REFLEX NEGATIVE (Negative); URINE NITRITE-REFLEX NEGATIVE (Negative); URINE PROTEIN NEGATIVE (Negative); URINE SPECIFIC GRAVITY 1.025 (1.005-1.030); URINE UROBILINOGEN 0.2 E.U./dl (0.2-1.0)
[2020-06-02 06:36] LABS: GLUCOSE 13 mg/dL (70-99)
[2020-06-02 06:39] LABS: APTT 29.2 Seconds (25.0-31.3); INR 1.1; PROTIME 11.3 Seconds (9.20-11.50)
[2020-06-02 06:48] LABS: ALBUMIN 3.2 g/dL (3.4-5.0); ALKALINE PHOSPHATASE 236 U/L (46-116); NT-PRO BRAIN NAT PEPTIDE 4133 pg/mL (<300); SGOT 32 U/L (15-37); SGPT 38 U/L (30-65); TOTAL BILIRUBIN < 0.1 mg/dL (<0.1-1.0); TOTAL PROTEIN 7.1 g/dL (6.4-8.2)
--- NOTE | 2020-06-02 15:18 | EKG ---
[place] [address] ELECTROCARDIOGRAM REPORT Name: WINDY MAR V Room: [address] ADM IN M.R.#: [id number] Admission: 06/02/20 Attend Phys: Marnie Waddell, Discharge: Date of : 36 Date of Service: 06/02/20 0731 Report #: [id number] THIS REPORT FOR: //name// [facility] ED Test Date: 2020-06-02 Test Time: 07:31:56 Pat Name: WINDY MAR Department: Room: [address] Gender: M Imaging Specialist: LATESHA : 1940 Requested By: Yg Gonzalez Order Number: [id number] Swati MD: Devonte Christina Measurements Intervals [place] Rate: 44 P: PA: QRS: 26 QRSD: 168 T: 8 QT: 576 QTc: 493 Interpretive Statements Atrial fibrillation Right bundle branch block Compared to ECG 06/02/2020 05:51:26 rate has slowed Electronically Signed On 06-02-2020 15:18:01 SVP DIGITAL SALES by Devonte Christina [email or web address] <ELECTRONICALLY SIGNED> By: Devonte Christina MD, [facility] 06/02/20 1518 0731 Devonte Christina MD, [facility] /EPI
[2020-06-02] MEDS ORDERED: NEURONTIN 300M300 M2 PO (21:41)
[2020-06-03] VITALS (15 sets, daily range): BP systolic 84–131; BP diastolic 51–67
[2020-06-03 04:54] LABS: BE -3.9 mmol/L (-2 to +3); PCO2 45.7 mmHg (35.0-45.0); PO2 71.6 mmHg (75.0-100.0); pH 7.309 (7.340-7.450)
[2020-06-03 05:09] LABS: HEMATOCRIT 30.6 % (42.0-52.0); MCH 30.4 pg (26.0-34.0); MCHC 32.6 g/dL (28.0-37.0); MCV 93.2 fL (80.0-100.0); MPV 8.8 fl. (7.2-11.1); RBC 3.28 mil/uL (4.50-6.00); RDW-CV 16.3 % (10.5-14.5); WBC 5.9 thou/uL (4.0-11.0)
[2020-06-03 05:51] LABS: ALBUMIN 2.5 g/dL (3.4-5.0); CALCIUM 8.1 mg/dL (8.5-10.1); MAGNESIUM 2.3 mg/dL (1.8-2.4); POTASSIUM 3.2 mmol/L (3.5-5.1); TOTAL BILIRUBIN 0.4 mg/dL (<0.1-1.0); TOTAL PROTEIN 6.5 g/dL (6.4-8.2)
--- NOTE | 2020-06-03 14:16 | NUR ---
ICU ROUNDS: Temp placer placed yesterday, out today, cards following. Pt is A&O. Resides at home, SO stays with Pt sometimes. No DME. No hx of HH or SNF. Pt plans to return home at al.
--- NOTE | 2020-06-03 15:31 | NUR ---
this personal lines underwriter assumed care of pt at 0700 assessment as charted pt evaled by cardio stated pt will not need permanant pacemaker. heart rate is sr in mid 70s temp pacer removed by blender laborer at 1300 dressing dry and intact potassium replaced pt is is teley stats and will be transported to room 203 via wheelchair with nursing staff all belongings packed and sent with pt
--- NOTE | 2020-06-03 19:17 | NUR ---
RECIEVED REPORT FROM JANEE ORANTES. PT ARRIVED ON UNIT. LYING IN BED. TRANSFER FROM ICU. RA. SANTOS INTACT. IS ABLE TO COME OUT, ONCE PT IS UP. HEART MONITOR ATTACHED. CALL LIGHT WITHIN REACH. REPORT GIVEN TO RELEASE OF INFORMATION CLERK. RELEASE OF INFORMATION CLERK ASSUMED CARE.
[2020-06-04] VITALS: BP 124/49
[2020-06-04 04:14] LABS: HEMATOCRIT 26.7 % (42.0-52.0); HEMOGLOBIN 8.8 gm/dL (14.0-18.0); MCH 30.6 pg (26.0-34.0); MCHC 33.1 g/dL (28.0-37.0); MCV 92.4 fL (80.0-100.0); MPV 8.2 fl. (7.2-11.1); RBC 2.89 mil/uL (4.50-6.00); RDW-CV 16.2 % (10.5-14.5); WBC 5.9 thou/uL (4.0-11.0)
[2020-06-04 04:32] LABS: ALBUMIN 2.2 g/dL (3.4-5.0); CALCIUM 8.3 mg/dL (8.5-10.1); CREATININE 2.7 mg/dL (0.6-1.3); MAGNESIUM 2.2 mg/dL (1.8-2.4); POTASSIUM 3.9 mmol/L (3.5-5.1); TOTAL BILIRUBIN 0.4 mg/dL (<0.1-1.0); TOTAL PROTEIN 5.8 g/dL (6.4-8.2)
[2020-06-04 08:00] VITALS: BP 107/49
[2020-06-04 08:44] LABS: % SATURATION 9 % (20-39); IRON 17 ug/dL (50-175)
[2020-06-04 11:00] VITALS: BP 126/48
--- NOTE | 2020-06-04 12:11 | CARD ---
[address] [address] CARDIAC CATH REPORT Name: WINDY MAR V Room: [address] IN .#: [id number] Admission: 06/02/20 Attend Phys: Marnie Waddell MD Discharge: Date of : 38 Report #: [id number] THIS REPORT FOR: cc: Moody Dalal Steve T. DO ~ Oniel Wellington MD [facility] APPROVED REPORT Study performed: 06/02/2020 08:45:55 Patient Status: In-Patient Room #: Event Personnel: Oniel Wellington Debate Director, Katelyn Mora RN RN, Maegan Jo RTR Monitor, Scooter David SENIOR NET SOFTWARE DEVELOPER Scrub Exam: Temporary Pacemaker Insertion Indications: Chronic atrial fibrillation with slow ventricular response rate. The patient is a 79 year-old male with a history of Chronic atrial fibrillation. Conscious Sedation No sedation given. Case start was 09:19 and case end was 09:26. Implanted Devices: Temporary pacer wire placed via the right femoral vein. Procedure The patient underwent informed consent. We discussed the details of the procedure including the risks, which include, but not limited to bleeding, infection, vascular damage, cardiac perforation, and pneumothorax. The right groin was prepped and draped in a sterile manner. The area above the right femoral vein was infiltrated with 2 % Lidocaine. The right femoral vein was accessed via the Seldinger technique. A 5 Syrian venous sheath was placed. The temporary pacing lead was advanced to a secure position within the right ventricular apex. Thresholds were checked and deemed to be satisfactory.. Rate: 80 MA: 10. The femoral sheath was sutured to the leg and dressed in sterile fashion. The patient tolerated the procedure well and without complication. Complications The patient tolerated the procedure well [place] [address] CARDIAC CATH REPORT Name: WINDY MAR V Room: [address] IN [facility].#: [id number] Admission: 06/02/20 Attend Phys: Marnie Waddell MD Discharge: Date of : 38 Report #: [id number] complications associated with the procedure. Findings Specimens Removed: No Estimated Blood Loss: 5 ml Conclusion 1. Atrial fibrillation with slow ventricular response rate. 2. Successful placement of a temporary venous pacemaker via the right femoral vein without complication. <ELECTRONICALLY SIGNED> By: Oniel Wellington MD, FACC 06/04/201210 10 10Oniel Wellington MD, FACC /INF
--- NOTE | 2020-06-04 12:17 | NUR ---
Anticipate dc in 1-2 days to home. No needs anticipated.
--- NOTE | 2020-06-04 12:43 | NUR ---
ASSUMED CARE OF PT AT 0730. PT SITTING UP IN BED WAITING FOR BREAKFAST. A&0X4, DENIES ANY PAIN OR SHORTNESS OF BREATH AT THIS TIME. PT TRACING AFIB THIS AM-RATE CONTROLLED IN THE 70'S, TRACING SR WITH BBB AND PACS ON THE BABY ATTENDANT THIS AFTERNOON. ON 4L NC SAT MID 90'S. PT UP WITH 1 ASSIST TO BATHROOM. PT WORKED WITH PT THIS AM-TOLERATED WELL. SANTOS DISCONTINUED LATE MORNING-URINAL PLACED AT BEDSIDE. PT GOAL FOR TODAY IS INCREASE ACTIVITY, VOID WITH NO DIFFICULTIES POST SANTOS CATHETER REMOVAL AND TITRATE OXYGEN. AM ASSESSMENT CHARTED. MEDICATIONS PER AUG. PT REPOSITIONS SELF WITH REMINDERS. HOURLY ROUNDING OBSERVED. BED IN LOW POSITIONS. CALL LIGHT WITHIN REACH. WILL CONTINUE PLAN OF CARE.
[2020-06-04 16:49] VITALS: BP 118/41
[2020-06-04 20:00] VITALS: BP 124/63
[2020-06-05] VITALS: BP 146/56
[2020-06-05 02:57] LABS: HEMATOCRIT 25.4 % (42.0-52.0); HEMOGLOBIN 8.4 gm/dL (14.0-18.0); MCH 30.7 pg (26.0-34.0); MCHC 33.2 g/dL (28.0-37.0); MCV 92.4 fL (80.0-100.0); MPV 8.3 fl. (7.2-11.1); RBC 2.75 mil/uL (4.50-6.00); RDW-CV 16.1 % (10.5-14.5); WBC 5.5 thou/uL (4.0-11.0)
[2020-06-05 03:10] LABS: ALBUMIN 2.2 g/dL (3.4-5.0); CALCIUM 8.1 mg/dL (8.5-10.1); CREATININE 2.6 mg/dL (0.6-1.3); POTASSIUM 3.2 mmol/L (3.5-5.1); TOTAL BILIRUBIN 0.4 mg/dL (<0.1-1.0); TOTAL PROTEIN 5.8 g/dL (6.4-8.2)
[2020-06-05 05:00] VITALS: BP 129/65
[2020-06-05 09:00] VITALS: BP 95/75
[2020-06-05 11:30] VITALS: BP 92/68
[2020-06-05 16:58] VITALS: BP 92/68
[2020-06-05 17:15] VITALS: BP 92/68
--- NOTE | 2020-06-05 18:36 | NUR ---
PT DISCHARGED HOME, AWARE THAT HE SHOULD NOT EXERCISE WITHOUT OXYGEN BEING AT HIS HOME NAYANA IS WORKING ON GETTING THAT THERE HOME HEALTH IS TO BE SET UP BY CASE MANAGEMENT TOMORROW ALSO BANDAGE CHANGED ON PLEURIX DRAIN SITE AND DRAINED 1200 FROM DRAIN PORT DEACESSED WITHOUT ISSUES
--- NOTE | 2020-06-08 09:22 | NUR ---
LATE ENTRY FOR 06/05 AT 1530-CALL FROM [employer] SECRETARY ASKING DOUGLAS TO SET UP HOME O2, FOR DISCHARGE TODAY. PT.WAS RA AT REST AND NEEDED 2L WITH ACTIVITY. CALLED [phone] [employer]. SPOKE WITH SHAHRIAR, WHO TOOK ALL OF PT.INFORMATION. REQUESTED SATURANTIONS, ORDER,FACE SHEET AND PROGRESS NOTE STATING NEED FOR O2 TO BE FAXED TO [phone]. PHONE NUMBER TO CALL TO CHECK ON STATUS OF DELIVERY [phone]. DOUGLAS SPOKE WITH JANEE SUTTON AND INFORMED HER OF ABOVE. SHE WILL FAX INFORMATION. NAYANA WILL DELIVER PORTABLE TANK TO [facility] ROOM,PRIOR TO DISCHARGE.
--- NOTE | 2020-06-09 09:57 | CON ---
[address] [address] CONSULTATION Name: WINDY MAR V Room: [address] IN M.R.#: [id number] Admission: 06/02/20 Attend Phys: Marnie Waddell MD Discharge: 06/05/20 Date of : 36 Report #: [id number] THIS REPORT FOR: cc: Moody Dalal Steve T. DO ~ Nate Morrell MD DATE OF SERVICE: 06/03/2020 REQUESTING PHYSICIAN: Dr. Waddell. REASON FOR CONSULTATION: Acute kidney injury. HISTORY OF PRESENT ILLNESS: The patient is a very pleasant 79-year-old gentleman known to me. I did see him in the hospital in 01/2020. At that time, he was admitted for acute kidney injury, hyponatremia, hyperkalemia and had to be dialyzed temporarily, then recovered some of his kidney function, creatinine came down to as low as 2.9. Creatinine on admission was 3.9, which is down to 3.0 today. He presented with chief complaints of being very weak unresponsive, was found to be hypoglycemic and bradycardic. He was found to have atrial fibrillation with slow ventricular response, heart rate in 30s and 40s, it is better today. PAST MEDICAL HISTORY: 1. Chronic kidney disease stage 4 with recent episode of acute kidney injury. 2. Chronic left pleural effusion, status post placement of left PleurX catheter that was done last week at [facility]. 3. History of esophageal cancer, unknown stage now. 4. Peripheral artery disease, status post bilateral carotid endarterectomy. 5. History of atrial fibrillation. 6. Chronic diastolic heart failure. 7. Chronic obstructive pulmonary disease. 8. Coronary artery disease. 9. Diabetes mellitus type 2. SOCIAL HISTORY: No tobacco or alcohol abuse. FAMILY HISTORY: Noncontributory. REVIEW OF SYSTEMS: Feels better now. He was admitted again being unresponsive due to hypoglycemia. PHYSICAL EXAMINATION: GENERAL: Awake, alert, oriented, no acute distress. VITAL SIGNS: Stable. Heart rate [place] 70[place] [address] CONSULTATION Name: WINDY MAR V Room: [address]#: [id number] Admission: 06/02/20 Attend Phys: Marnie Waddell MD Discharge: 06/05/20 Date of : 38 Report #: [id number] HEENT: Pupils are round. NECK: Supple. LUNGS: He has some decreased breath sounds, left base and left PleurX catheter in place. CARDIOVASCULAR: Heart rate is irregular. ABDOMEN: Soft. EXTREMITIES: Lower extremities, no edema. LABORATORY DATA: Creatinine today 3.0, it was 3.9 yesterday. ASSESSMENT: 1. Acute kidney injury due to bradycardia. 2. Chronic kidney disease, stage 4. 3. Coronary artery disease. 4. Diabetes mellitus type 2. 5. Chronic obstructive pulmonary disease. 6. Chronic diastolic heart failure. 7. Peripheral artery disease. 7. Status post placement of left PleurX catheter. PLAN: 1. Keep him euvolemic. 2. Avoid diuretics for now. 3. Follow his labs. 4. Cardiology follows his bradycardia. <ELECTRONICALLY SIGNED> By: Nate Morrell MD 06/09/20 0957 1004 1016Alexaarline Morrell MD /nt
== END 2020-06-05 18:35 | disposition home health service (06) | DRG 871 ==
LOC: M.ERS 05:44 → M.TBA-ER 06:34 → M.ICU 06:34 → M.2W 06-03 17:39
PROVIDERS: Family Medicine; ADMIT Internal Medicine; ATTEND Internal Medicine
PROC: 5A1223Z Performance of Cardiac Pacing, Continuous (ICD-10-PCS; principal; 2020-06-02)
DX: A41.9 Sepsis, unspecified organism (principal); G93.41 Metabolic encephalopathy; J96.02 Acute respiratory failure with hypercapnia; J96.01 Acute respiratory failure with hypoxia; N17.0 Acute kidney failure with tubular necrosis; N18.4 Chronic kidney disease, stage 4 (severe); I50.32 Chronic diastolic (congestive) heart failure; J90 Pleural effusion, not elsewhere classified; I48.20 Chronic atrial fibrillation, unspecified; I13.0 Hypertensive heart and chronic kidney disease with heart failure and stage 1 through stage 4 chronic kidney disease, or unspecified chronic kidney disease; J44.9 Chronic obstructive pulmonary disease, unspecified; I27.20 Pulmonary hypertension, unspecified; E11.22 Type 2 diabetes mellitus with diabetic chronic kidney disease; E11.649 Type 2 diabetes mellitus with hypoglycemia without coma; I25.10 Atherosclerotic heart disease of native coronary artery without angina pectoris; E11.51 Type 2 diabetes mellitus with diabetic peripheral angiopathy without gangrene; R00.1 Bradycardia, unspecified; E88.09 Other disorders of plasma-protein metabolism, not elsewhere classified; Z79.899 Other long term (current) drug therapy; Z87.891 Personal history of nicotine dependence; Z85.01 Personal history of malignant neoplasm of esophagus; Z82.49 Family history of ischemic heart disease and other diseases of the circulatory system; Z20.828 Contact with and (suspected) exposure to other viral communicable diseases

== ENCOUNTER → 2020-07-09 | Outpatient (CLI) | payer MEDICARE, BC ==
[~2020-07-09] MED LIST changes: +NEURONTIN 300M300 M2 PO
== END ==
LOC: M.RAD 06-18 11:02
PROVIDERS: ATTEND Internal Medicine Critical Care Medicine
DX: J44.9 Chronic obstructive pulmonary disease, unspecified (principal); J90 Pleural effusion, not elsewhere classified; N18.4 Chronic kidney disease, stage 4 (severe); Z85.01 Personal history of malignant neoplasm of esophagus

== ENCOUNTER 2020-07-12 15:15 | Inpatient (IN) | payer MEDICARE, BC ==
[~2020-07-12] VITALS: Ht 177.8 cm; Wt 80.9 kg
[2020-07-12 15:29] VITALS: BP 111/53
[2020-07-12 16:26] LABS: ABSOLUTE BASOPHILS 0.1 thou/uL (0.0-0.2); ABSOLUTE EOSINOPHILS 0.2 thou/uL (0.0-0.7); ABSOLUTE LYMPHOCYTES 0.4 thou/uL (0.8-5.3); ABSOLUTE MONOCYTES 0.8 thou/uL (0.0-1.2); ABSOLUTE NEUTROPHILS 6.5 thou/uL (1.6-8.1); BASOPHILS 0.6 %; HEMATOCRIT 26.5 % (42.0-52.0); HEMOGLOBIN 8.8 gm/dL (14.0-18.0); LYMPHOCYTES 4.7 %; MCH 29.8 pg (26.0-34.0); MCV 90.4 fL (80.0-100.0); MONOCYTES 10.3 %; MPV 8.9 fl. (7.2-11.1); NUCLEATED RBCS 0 /100WBC; PLATELET COUNT* 154 thou/uL (150-400); POLYS 82.4 %; RBC 2.94 mil/uL (4.50-6.00); RDW-CV 16.1 % (10.5-14.5); WBC 7.9 thou/uL (4.0-11.0)
[2020-07-12 16:35] LABS: CALCIUM 8.6 mg/dL (8.5-10.1); CREATININE 3.3 mg/dL (0.6-1.3); POTASSIUM 3.5 mmol/L (3.5-5.1)
[2020-07-12 16:38] LABS: APTT 36.2 Seconds (25.0-31.3); INR 1.3; PROTIME 13.7 Seconds (9.20-11.50)
[2020-07-12 16:46] LABS: ALBUMIN 2.4 g/dL (3.4-5.0); TOTAL BILIRUBIN 0.8 mg/dL (<0.1-1.0); TOTAL PROTEIN 6.3 g/dL (6.4-8.2)
[2020-07-12 21:40] VITALS: BP 98/53
[2020-07-12 21:45] VITALS: BP 109/53
[2020-07-13 04:00] VITALS: BP 113/49
[2020-07-13 08:00] VITALS: BP 95/53
--- NOTE | 2020-07-13 10:33 | EKG ---
[place] [address] ELECTROCARDIOGRAM REPORT Name: WINDY MAR V Room: [address] M.R.#: [id number] Admission: 07/12/20 Attend Phys: Santos Lane Discharge: Date of : 36 Date of Service: 07/12/20 1623 Report #: [id number] THIS REPORT FOR: //name// [facility] ED Test Date: 2020-07-12 Test Time: 16:23:39 Pat Name: WINDY MAR Department: Room: [facility] Gender: M Senior Fund Accountant: VERNON : 1940 Requested By: Jac Bill Order Number: [id number] MD: Devotne Christina Measurements Intervals [place] Rate: 67 P: [place]: QRS: 74 QRSD: 145 T: 2 QT: 468 QTc: 494 Interpretive Statements Atrial fibrillation Right bundle branch block Compared to ECG 06/02/2020 07:31:56 rate has increased Electronically Signed On 07-13-2020 10:33:04 PRODUCT SUPPORT TECHNICIAN by Devonte Christina [email or web address] <ELECTRONICALLY SIGNED> By: Devonte Christina MD, [facility] 07/13/20 1033 1623 1623 Devonte Christina MD, [facility] /EPI
[2020-07-13 12:00] VITALS: BP 110/48
[2020-07-13 16:13] VITALS: BP 100/46
[2020-07-13 20:20] VITALS: BP 128/61
[2020-07-14 00:35] VITALS: BP 113/54
[2020-07-14 03:57] VITALS: BP 100/60
[2020-07-14 08:50] VITALS: BP 105/52
[2020-07-14 13:10] VITALS: BP 118/54
[2020-07-14 14:27] VITALS: BP 118/54
[2020-07-14 14:31] VITALS: BP 118/54
== END 2020-07-14 15:15 | disposition home or self-care (01) | DRG 920 ==
LOC: M.ERS 15:15 → M.TBA-ER 17:28 → M.2W 21:45
PROVIDERS: Emergency Medicine Emergency Medical Services; ADMIT Internal Medicine; ATTEND Internal Medicine
DX: T85.698A Other mechanical complication of other specified internal prosthetic devices, implants and grafts, initial encounter (principal); I50.32 Chronic diastolic (congestive) heart failure; E44.1 Mild protein-calorie malnutrition; I13.0 Hypertensive heart and chronic kidney disease with heart failure and stage 1 through stage 4 chronic kidney disease, or unspecified chronic kidney disease; J90 Pleural effusion, not elsewhere classified; K44.9 Diaphragmatic hernia without obstruction or gangrene; N18.30 Chronic kidney disease, stage 3 unspecified; E11.22 Type 2 diabetes mellitus with diabetic chronic kidney disease; I27.20 Pulmonary hypertension, unspecified; Y83.8 Other surgical procedures as the cause of abnormal reaction of the patient, or of later complication, without mention of misadventure at the time of the procedure; J44.9 Chronic obstructive pulmonary disease, unspecified; Z20.822 Contact with and (suspected) exposure to COVID-19; Z85.01 Personal history of malignant neoplasm of esophagus; Z68.25 Body mass index [BMI] 25.0-25.9, adult; Z87.891 Personal history of nicotine dependence; Z79.4 Long term (current) use of insulin; Z79.01 Long term (current) use of anticoagulants; Z79.899 Other long term (current) drug therapy; Y92.89 Other specified places as the place of occurrence of the external cause; Z87.01 Personal history of pneumonia (recurrent)

== ENCOUNTER 2020-08-18 05:24 | Inpatient (IN) | payer MEDICARE, BC ==
[~2020-08-18] VITALS: Ht 177.8 cm; Wt 76.8 kg
[~2020-08-18 05:24] MED LIST changes: -CALCITRIOL0.25 MCG PO; -ELIQUIS2.5 MG PO; -MIDODRINE HCL10 MG PO
[2020-08-18 05:27] VITALS: BP 142/76
[2020-08-18 06:20] LABS: BE 5.3 mmol/L (-2 to +3); PCO2 47.7 mmHg (35.0-45.0); PO2 101.8 mmHg (75.0-100.0); pH 7.423 (7.340-7.450)
[2020-08-18 06:27] LABS: ABSOLUTE LYMPHOCYTES 0.3 thou/uL (0.8-5.3); ABSOLUTE MONOCYTES 0.7 thou/uL (0.0-1.2); BASOPHILS 0.3 %; EOSINOPHILS 0.2 %; HEMATOCRIT 27.7 % (42.0-52.0); HEMOGLOBIN 9.1 gm/dL (14.0-18.0); LYMPHOCYTES 4.3 %; MCH 28.7 pg (26.0-34.0); MCHC 32.8 g/dL (28.0-37.0); MCV 87.6 fL (80.0-100.0); MPV 8.2 fl. (7.2-11.1); NUCLEATED RBCS 0 /100WBC; PLATELET COUNT* 251 thou/uL (150-400); POLYS 85.2 %; RBC 3.16 mil/uL (4.50-6.00); RDW-CV 15.7 % (10.5-14.5); WBC 7.1 thou/uL (4.0-11.0)
[2020-08-18 06:30] LABS: CALCIUM 8.8 mg/dL (8.5-10.1); CREATININE 2.2 mg/dL (0.6-1.3)
[2020-08-18 06:32] LABS: INR 1.3; PROTIME 13.5 Seconds (9.20-11.50)
[2020-08-18 06:33] LABS: POTASSIUM 2.9 mmol/L (3.5-5.1)
[2020-08-18] MEDS ORDERED: ASA81BEC PO (06:40)
[2020-08-18 06:41] LABS: ALBUMIN 2.4 g/dL (3.4-5.0); MAGNESIUM 2.2 mg/dL (1.8-2.4); TOTAL BILIRUBIN 0.5 mg/dL (<0.1-1.0); TOTAL PROTEIN 8.2 g/dL (6.4-8.2)
[2020-08-18] MEDS ORDERED: METFORMIN HCL500 M3 PO (06:43)
[2020-08-18] MEDS ORDERED: GLIPIZIDE 10 MG10 MG PO (06:43)
[2020-08-18 07:33] LABS: CALCIUM 8.2 mg/dL (8.5-10.1); CREATININE 2.2 mg/dL (0.6-1.3)
[2020-08-18 08:09] VITALS: BP 100/55
[2020-08-18 08:52] VITALS: BP 104/54
--- NOTE | 2020-08-18 09:24 | NUR ---
CM COMPLETED INITIAL ASSESSMENT, PT SO, KRISTOPHER, AT BEDSIDE. PT RESETING W/O2 APPLIED DURING ASSESSMENT. PT LIVES W/SO. PT HAS WALKER AND HOME O2 ON 2L. PT DRIVES, BUT EMETERIO STATED HE MAY NEED TO LIMIT DRIVING B/C "ITS WEARING HIM OUT." PT IS INDEPENDENT W/ADLS, "BUT IT IS BECOMING MORE DIFFICULT HE IS GETTING WEAKER." PT IS CURRENT W/[facility] AND HAS HX WITH [facility] [place]. CM TO CONT TO FOLLOW.
--- NOTE | 2020-08-18 09:37 | EKG ---
[place] [address] ELECTROCARDIOGRAM REPORT Name: WINDY MAR V Room: [address] M.R.#: [id number] Admission: 08/18/20 Attend Phys: Fox Alves, Discharge: Date of : 36 Date of Service: 08/18/20 0528 Report #: [id number] THIS REPORT FOR: //name// [facility] ED Test Date: 2020-08-18 Test Time: 05:28:10 Pat Name: WINDY MAR Department: Room: [facility] Gender: M Rail Grinder: MONO : 1940 Requested By: Britt Meek Order Number: [id number] MD: Oniel Wellington Measurements Intervals [place] Rate: 84 P: SD: QRS: -105 QRSD: 153 T: 4 QT: 425 QTc: 503 Interpretive Statements Atrial fibrillation RBBB and LAFB Compared to ECG 07/12/2020 16:23:39 Left anterior fascicular block now present Electronically Signed On 08-18-2020 9:37:49 HADOOP ANALYST by Oniel Wellington [email or web address] <ELECTRONICALLY SIGNED> By: Oniel Wellington MD, [facility] 08/18/20 0937 0528 0528 Oniel Wellington MD, [facility] /EPI
--- NOTE | 2020-08-18 09:46 | NUR ---
PT ADMITTED TO UNIT AT 0820. EDUCATED PT ON ROOM, UNIT, CALL LIGHT CONTROLS AND NOT TO GET UP WITHOUT CALLING. PT VITALS ARE STABLE AT THIS TIME. SEE ASSESSMENT IN CHART. MED LIST IS REC'D. PT IS RESTING AT THIS TIME.
[2020-08-18 12:07] VITALS: BP 124/68
[2020-08-18] MEDS ORDERED: ELIQUIS2.5 MG PO (13:18)
[2020-08-18] MEDS ORDERED: MIDODRINE HCL10 MG PO (13:18)
[2020-08-18] MEDS ORDERED: CALCITRIOL0.25 MCG PO (13:20)
[2020-08-18 14:49] LABS: URINE BILIRUBIN NEGATIVE (Negative); URINE BLOOD NEGATIVE (Negative); URINE CLARITY CLEAR; URINE COLOR YELLOW; URINE GLUCOSE-RANDOM NEGATIVE (Negative); URINE KETONES NEGATIVE (Negative); URINE LEUKOCYTES-REFLEX NEGATIVE (Negative); URINE NITRITE-REFLEX NEGATIVE (Negative); URINE PROTEIN NEGATIVE (Negative); URINE SPECIFIC GRAVITY 1.015 (1.005-1.030); URINE UROBILINOGEN 0.2 E.U./dl (0.2-1.0)
[2020-08-18] MEDS ORDERED: VENTOLIN HFA 1818 GM INH (15:47)
[2020-08-18 16:57] VITALS: BP 142/75
[2020-08-18 19:30] VITALS: BP 120/75
[2020-08-19] VITALS: BP 117/64
[2020-08-19 04:36] LABS: HEMATOCRIT 24.1 % (42.0-52.0); HEMOGLOBIN 7.9 gm/dL (14.0-18.0); MCH 28.6 pg (26.0-34.0); MCHC 32.7 g/dL (28.0-37.0); MCV 87.4 fL (80.0-100.0); RBC 2.75 mil/uL (4.50-6.00); RDW-CV 15.8 % (10.5-14.5)
[2020-08-19 04:51] LABS: CALCIUM 8.3 mg/dL (8.5-10.1); CREATININE 2.1 mg/dL (0.6-1.3); POTASSIUM 3.7 mmol/L (3.5-5.1)
--- NOTE | 2020-08-19 06:51 | NUR ---
NO ACUTE CHANGES THROUGHOUT SHIFT. FULL ASSESSMENT COMPLETED CHARTED, ALL PHYSICIAN ORDERED INTERVENTIONS COMPLETED, ALL MEDS GIVEN PER EMAR. ALL ROUNDINGS COMPLETED, ALL NEEDS MET.
[2020-08-19 08:11] VITALS: BP 98/55
--- NOTE | 2020-08-19 09:14 | NUR ---
WOUND NURSE: PATIENT SEEN TO ADDRESS LESION ON THE COCCYX WHICH PRESENTS A HEALING STAGE 2 PRESSURE INJURY MEASURING AT THIS TIME 0.1 X 0.1 X 0.1 CM. PERIWOUND AREA IS REDDENED BUT INTACT. RECOMMEND PHYTOPLEX CLEAR AID MOISTURE BARRIER 2X/DAY AND PRN. ALSO RECOMMENDED TO PATENT THAT HE OBTAIN A COCCYX OFFLOADIING CUSHION AND I PROVIDED HIM WITH WRITTEN INFORMATON ON WHICH AND WHERE TO OBTAIN ONE. PATIENT STATES HE UNDERSTANDS.
--- NOTE | 2020-08-19 09:49 | NUR ---
ASSUMED CARE OF PT AT 0730. PT RESTING IN BED. PT WORKED WITH PT THIS AM AND IS CURRENTLY SITTING UP IN THE RECLINER. A&0X4, DENIES ANY PAIN OR SHORTNESS OF BREATH AT THIS TIME. PT GIVEN PAIN MEDS BY NOC WITH PARTIAL RELIEF. REFER TO EMAR. TRACING SR WITH BBB AND FIRST DEGREE ON THE PROGRAM MANAGEMENT INTERN. ON 2L NC SAT UPPER 90'S. PT UP WITH SBA AND WALKER TO BATHROOM. WEAKNESS NOTED. WOUND CARE HERE TO SEE PT THIS AM. ORDERS RECEIVED. BARRIER CREAM APPLIED TO COCCYX. PT ON 1500 ML FLUID RESTRICTION. PT GOAL FOR TODAY IS INCREASE ACTIVITY, PT AND OT EVAL AND PAIN MGMT. AM ASSESSMENT CHARTED. MEDICATIONS PER AUG. PT REPOSITIONS SELF. HOURLY ROUNDING OBSERVED. BED IN LOW POSITION. CALL LIGHT WITHIN REACH. WILL CONTINUE PLAN OF CARE.
--- NOTE | 2020-08-19 11:28 | NUR ---
CM INFORMED DURING PRIME ROUNDING OF THE PLAN OF CARE FOR THE PT. PLAN TO INCREASE PT'S INTAKE AND ACTIVITY. P.T. EVAL PENDING AND WILL BE NEEDED TO DETERMINE PT'S MOBILITY AND D/C PLANNING NEEDS. PT MAY NEED HH AT D/C. CM WILL REMAIN AVAILABLE TO ASSIST AND FOLLOW NEEDED.
[2020-08-19 12:00] VITALS: BP 115/56
[2020-08-19 16:00] VITALS: BP 144/60
[2020-08-20] VITALS: BP 113/67
--- NOTE | 2020-08-20 07:04 | NUR ---
NO ACUTE CHANGES THROUGHOUT SHIFT. SEE CHART FOR DETAILS.
[2020-08-20 09:00] LABS: HEMATOCRIT 24.5 % (42.0-52.0); MCH 28.6 pg (26.0-34.0); MCHC 32.7 g/dL (28.0-37.0); MCV 87.3 fL (80.0-100.0); MPV 8.1 fl. (7.2-11.1); RBC 2.81 mil/uL (4.50-6.00); RDW-CV 15.9 % (10.5-14.5); WBC 6.1 thou/uL (4.0-11.0)
[2020-08-20 09:09] LABS: CALCIUM 8.9 mg/dL (8.5-10.1); CREATININE 2.2 mg/dL (0.6-1.3); POTASSIUM 4.2 mmol/L (3.5-5.1)
[2020-08-20 11:44] VITALS: BP 110/45
--- NOTE | 2020-08-20 12:01 | NUR ---
CM INFORMED DURING PRIME ROUNDS OF THE PLAN OF CARE FOR THE PT. PLAN TO INCREASE PT'S ACTIVITY AND INTAKE. PLAN TO CONTINUE TO MONITOR PT'S LABS HIS HGB REMAINS LOW. PLAN FOR PT TO RESUME HH AT D/C PT WAS ON-SERVICE WITH [facility] PRIOR TO ADMIT. PT ALSO HAD HOME O2 PRIOR TO ADMIT AT 2L VIA NC. CM WILL REMAIN AVAILABLE TO ASSIST AND FOLLOW WITH D/C PLANNING NEEDED.
[2020-08-20 16:31] VITALS: BP 125/58
--- NOTE | 2020-08-20 16:47 | NUR ---
PTHAS PLEURAL DRAIN LEFT CHESTANDHE STATES THAT HE HAS BEEN HAVING SOME PROBLEMS WITH IS. PAGE DR. GASCA FOR IR CONSULT PLACED THIS DRAIN AT [facility].
[2020-08-20 23:48] VITALS: BP 115/65
--- NOTE | 2020-08-21 06:31 | NUR ---
NO ACUTE CHANGES THROUGHOUT SHIFT. FULL ASSESSMENT COMPLETED CHARTED. ALL ROUNDINGS COMPLETED, ALL NEEDS MET.
[2020-08-21] MEDS ORDERED: MIRALAX17 GM PO (10:07)
[2020-08-21] MEDS ORDERED: HYDROCODON-ACE1 EAC7 PO (10:07)
--- NOTE | 2020-08-21 11:27 | NUR ---
PT RESTING AT THIS TIME. VSS ON 2L NC. BLOOD GLUCOSE 53 AFTER GIVEN JUICE,RECHECK AFTER EATING 155. SA,BBB ON MONITOR.PT TO DC HOME TODAY. NOTHING FURTHER.CLWR.WCTM
[2020-08-21 11:46] VITALS: BP 115/65
[2020-08-21 12:02] VITALS: BP 115/65
--- NOTE | 2020-08-21 12:25 | NUR ---
CM INFORMED DURING PRIME ROUNDING OF THE PLAN OF CARE FOR THE PT. PLAN FOR PT TO D/C HOME TOADY AND RESUME HH LEVEL OF CARE. PT ON HOME OXYGEN @ 2L. PT [facility]-SERVICE WITH [facility] PRIOR TO ADMIT AND PLANS TO RESUME SERVICES WITH [facility] AT D/C. CM SPOKE TO [facility] TO INFORM OF PT'S D/C AND FAXED PT'S CLINICAL INFO AND D/C HH ORDERS. CM WILL REMAIN AVAILABLE TO ASSIST AND FOLLOW NEEDED. [facility] PHONE: [phone] FAX: [phone]
== END 2020-08-21 14:00 | disposition home health service (06) | DRG 682 ==
LOC: M.ERS 05:24 → M.TBA-ER 07:10 → M.2W 08:40
PROVIDERS: Emergency Medicine; Family Medicine; ADMIT Internal Medicine; ATTEND Internal Medicine
DX: N17.9 Acute kidney failure, unspecified (principal); E43 Unspecified severe protein-calorie malnutrition; J96.22 Acute and chronic respiratory failure with hypercapnia; D62 Acute posthemorrhagic anemia; I13.0 Hypertensive heart and chronic kidney disease with heart failure and stage 1 through stage 4 chronic kidney disease, or unspecified chronic kidney disease; I50.32 Chronic diastolic (congestive) heart failure; N18.30 Chronic kidney disease, stage 3 unspecified; Z20.822 Contact with and (suspected) exposure to COVID-19; J44.9 Chronic obstructive pulmonary disease, unspecified; I27.20 Pulmonary hypertension, unspecified; E11.22 Type 2 diabetes mellitus with diabetic chronic kidney disease; E87.6 Hypokalemia; K59.00 Constipation, unspecified; E11.649 Type 2 diabetes mellitus with hypoglycemia without coma; Z85.01 Personal history of malignant neoplasm of esophagus; Z87.891 Personal history of nicotine dependence; Z68.24 Body mass index [BMI] 24.0-24.9, adult

== ENCOUNTER → 2020-09-14 | Outpatient (CLI) | payer MEDICARE, BC ==
[~2020-09-14] MED LIST changes: +CALCITRIOL0.25 MCG PO; +ELIQUIS2.5 MG PO; +GLIPIZIDE 10 MG10 MG PO; +HYDROCODON-ACE1 EAC7 PO; +METFORMIN HCL500 M3 PO; +MIDODRINE HCL10 MG PO; +MIRALAX17 GM PO
[2020-09-14 12:56] LABS: HEMATOCRIT 25.2 % (42.0-52.0); HEMOGLOBIN 8.1 gm/dL (14.0-18.0); MCH 28.6 pg (26.0-34.0); MCHC 32.4 g/dL (28.0-37.0); MCV 88.4 fL (80.0-100.0); RBC 2.85 mil/uL (4.50-6.00); RDW-CV 16.5 % (10.5-14.5); WBC 6.9 thou/uL (4.0-11.0)
== END ==
LOC: M.LAB 12:43
PROVIDERS: ATTEND Internal Medicine Cardiovascular Disease
DX: I48.20 Chronic atrial fibrillation, unspecified (principal); E11.649 Type 2 diabetes mellitus with hypoglycemia without coma; Z79.4 Long term (current) use of insulin

== ENCOUNTER 2020-10-05 14:03 | Inpatient (IN) | payer MEDICARE, BC ==
[~2020-10-05] VITALS: Ht 177.8 cm; Wt 72.6 kg
[2020-10-05 14:23] VITALS: BP 106/56
[2020-10-05] MEDS ORDERED: TRAMADOL 50 MG50 MG PO (14:30)
[2020-10-05 15:24] LABS: ABSOLUTE EOSINOPHILS 0.1 thou/uL (0.0-0.7); ABSOLUTE LYMPHOCYTES 0.6 thou/uL (0.8-5.3); ABSOLUTE MONOCYTES 0.6 thou/uL (0.0-1.2); ABSOLUTE NEUTROPHILS 4.6 thou/uL (1.6-8.1); BASOPHILS 0.5 %; EOSINOPHILS 1.2 %; HEMATOCRIT 24.7 % (42.0-52.0); LYMPHOCYTES 10.6 %; MCH 29.2 pg (26.0-34.0); MCHC 32.2 g/dL (28.0-37.0); MCV 90.5 fL (80.0-100.0); MONOCYTES 10.5 %; MPV 8.2 fl. (7.2-11.1); NUCLEATED RBCS 0 /100WBC; PLATELET COUNT* 192 thou/uL (150-400); POLYS 77.2 %; RBC 2.73 mil/uL (4.50-6.00); RDW-CV 17.7 % (10.5-14.5); WBC 5.9 thou/uL (4.0-11.0)
[2020-10-05 15:31] LABS: CALCIUM 8.5 mg/dL (8.5-10.1); CREATININE 2.6 mg/dL (0.6-1.3); POTASSIUM 3.7 mmol/L (3.5-5.1)
[2020-10-05 15:33] LABS: APTT 35.6 Seconds (25.0-31.3); INR 1.3
[2020-10-05 15:42] LABS: ALBUMIN 2.2 g/dL (3.4-5.0); TOTAL BILIRUBIN 0.6 mg/dL (<0.1-1.0); TOTAL PROTEIN 7.5 g/dL (6.4-8.2)
[2020-10-05 17:22] LABS: URINE BILIRUBIN NEGATIVE (Negative); URINE BLOOD 1+ (Negative); URINE CLARITY CLEAR; URINE COLOR YELLOW; URINE GLUCOSE-RANDOM NEGATIVE (Negative); URINE KETONES NEGATIVE (Negative); URINE LEUKOCYTES-REFLEX TRACE (Negative); URINE NITRITE-REFLEX NEGATIVE (Negative); URINE PROTEIN NEGATIVE (Negative); URINE SPECIFIC GRAVITY 1.015 (1.005-1.030); URINE UROBILINOGEN 0.2 E.U./dl (0.2-1.0)
[2020-10-05 17:30] LABS: SQUAMOUS 4-10 Moderate /LPF (0-3); URINE WBC-REFLEX 0-5 Rare /HPF (0-5)
[2020-10-05 17:31] LABS: BACTERIA-REFLEX None Seen /HPF (None Seen); CASTS None Seen /LPF (None Seen); CRYSTALS None Seen /LPF (None Seen); URINE RBC 3-10 Few /HPF (0-2)
[2020-10-05 20:49] VITALS: BP 120/61
[2020-10-06 01:02] VITALS: BP 104/58
[2020-10-06 05:04] VITALS: BP 117/62
[2020-10-06 08:05] VITALS: BP 114/62
[2020-10-06 11:35] VITALS: BP 114/62
--- NOTE | 2020-10-06 14:04 | EKG ---
[place] [address] ELECTROCARDIOGRAM REPORT Name: WINDY MAR V Room: [address] ADM IN M.R.#: [id number] Admission: 10/05/20 Attend Phys: Marilee Juarez Discharge: Date of : 36 Date of Service: 10/05/20 1449 Report #: [id number] THIS REPORT FOR: //name// [facility] ED Test Date: 2020-10-05 Test Time: 14:49:46 Pat Name: WINDY MAR Department: Room: [facility] Gender: M Computer Science Intern: : 1940 Requested By: Yg Gonzalez Order Number: [id number] MD: Devonte Christina Measurements Intervals [place] Rate: 75 P: IL: QRS: 62 QRSD: 146 T: 12 QT: 444 QTc: 496 Interpretive Statements Atrial fibrillation Ventricular premature complex Right bundle branch block septal infarct, age indeterminate Compared to ECG 08/18/2020 05:28:10 no change Electronically Signed On 10-06-2020 14:04:50 CDT by Devonte Christina [email or web address] <ELECTRONICALLY SIGNED> By: Devonte Christina MD, FAC 10/06/20 1404 1449 1449 Devonte Christina MD, [facility] /EPI
[2020-10-06 16:00] VITALS: BP 128/63
--- NOTE | 2020-10-06 16:44 | 2DMMODE ---
[place] [address] 2 D/M-MODE ECHOCARDIOGRAM Name: WINDY MAR V Room: [address] IN [facility]#: [id number] Admission: 10/05/20 Attend Phys: Marilee Juarez Discharge: Date of : 36 Date of Service: 10/06/20 1644 Report #: [id number] THIS REPORT FOR: cc: Moody Dalal Steve T. DO Liston, Michael J. MD [facility] ~ APPROVED REPORT Study performed: 10/06/2020 12:05:44 EXAM: Comprehensive 2D, Doppler, and color-flow Echocardiogram Patient Location: In-Patient Room #: [facility] Status: routine BSA: 1.90 HR: 77 bpm BP: 114/62 mmHg Rhythm: Atrial Fibrillation Other Information Study Quality: Good Indications Congestive Heart Failure Atrial Fibrillation 2D Dimensions IVSd: 11.36 (7-11mm) LVOT Diam: 22.65 (18-24mm) LVDd: 37.17 mm PWd: 11.85 (7-11mm) Ascending Ao: 32.88 (22-36mm) LVDs: 22.70 (25-40mm) Aortic Root: 31.43 mm Volumes Left Atrial Volume (Systole) LA ESV Index: 53.80 mL/m2 Aortic Valve AoV Peak Rishabh.: 1.60 m/s AO Peak Gr.: 10.25 mmHg LVOT Max P.51 mmHg AO Mean Gr.: 5.85 mmHg LVOT Mean P.75 mmHg LVOT Max V: 0.61 m/s AO V2 VTI: 33.53 cm LVOT Mean V: 0.40 m/s LALITO (VTI): 1.50 cm2 LVOT V1 VTI: 12.51 [place] [address] 2 D/M-MODE ECHOCARDIOGRAM Name: WINDY MAR V Room: [address] IN ..#: [id number] Admission: 10/05/20 Attend Phys: Marilee Juarez Discharge: Date of : 36 Date of Service: 10/06/20 1644 Report #: [id number] Estill: 2.98 m/s2 AI PHT: 377.14 ms Mitral Valve MV Decel. Time: 132.60 ms MV PHT: 38.46 ms MVA (PHT): 5.72 cm2 TDI Medial E' Rishabh.: 0.08 m/s Lateral E' Rishabh.: 0.10 m/s Pulmonary Valve PV Peak Rishabh.: 0.74 m/s PV Peak Gr.: 2.19 mmHg Tricuspid Valve RAP Estimate: 5.00 mmHg TR Peak Gr.: 34.51 mmHg RVSP: 39.00 mmHg PA Pressure: 39.00 mmHg Left Ventricle The left ventricle is normal size. There is normal LV segmental wall motion. There is normal left ventricular wall thickness. Left ventricular systolic function is normal. LVEF is 65-70%. This study is not technically sufficient to allow evaluation of the LV diastolic function due to atrial fibrillation. Right Ventricle The right ventricle is normal size. The right ventricular systolic function is normal. Atria Left atrium is severely dilated. Right atrium is moderately dilated. Aortic Valve Moderate aortic valve sclerosis. Mild aortic regurgitation. Mild to moderate aortic stenosis. Mitral Valve There is mitral annular calcification. Mild mitral regurgitation. No evidence of mitral valve stenosis. Tricuspid Valve The tricuspid valve is normal in structure. Mild tricuspid regurgitation. The RVSP is 55-60 [place] [address] 2 D/M-MODE ECHOCARDIOGRAM Name: WINDY MAR V Room: [address]#: [id number] Admission: 10/05/20 Attend Phys: Marilee Juarez Discharge: Date of : 36 Date of Service: 10/06/20 1644 Report #: [id number] Pulmonic Valve The pulmonary valve is normal in structure. Mild pulmonic regurgitation. Great Vessels The aortic root is normal in size. IVC is dilated and collapses <50% with inspiration. Pericardium There is no pericardial effusion. <Conclusion> The left ventricle is normal size. There is normal left ventricular wall thickness. Left ventricular systolic function is normal. LVEF is 65-70%. Left atrium is severely dilated. Right atrium is moderately dilated. Moderate aortic valve sclerosis. Mild aortic regurgitation. Mild to moderate aortic stenosis. There is mitral annular calcification. Mild mitral regurgitation. The tricuspid valve is normal in structure. Mild tricuspid regurgitation. The RVSP is 55-60 mmHg. Mild pulmonic regurgitation. IVC is dilated and collapses <50% with inspiration. <ELECTRONICALLY SIGNED> By: Oniel Wellington MD, FACC 10/06/20 1644 1644 1644 Oniel Wellington MD, FACC /INF
--- NOTE | 2020-10-06 19:56 | NUR ---
A&OX 4, PWD. PT WENT DOWN TO IR AND HAD PLEURAL CATHETER DC'D. DRESSING TO LEFT CHEST CLEAN DRY AND INTACT. NO C/O PAIN. IV FLUIDS DC'D AND VANC DC'D TODAY. PT IS DIABETIC AND 1604 BLOOD SUGAR 146. PT HAD LARGE BM TODAY. NO C/O WILL CONTINUE TO MONITOR. IV RIGHT CHEST PORT-A-CATH SALINE LOCKED.
[2020-10-06 21:00] VITALS: BP 140/47
[2020-10-07 07:13] LABS: ABSOLUTE EOSINOPHILS 0.1 thou/uL (0.0-0.7); ABSOLUTE LYMPHOCYTES 0.7 thou/uL (0.8-5.3); ABSOLUTE MONOCYTES 0.5 thou/uL (0.0-1.2); ABSOLUTE NEUTROPHILS 3.4 thou/uL (1.6-8.1); BASOPHILS 0.7 %; EOSINOPHILS 1.8 %; HEMATOCRIT 26.6 % (42.0-52.0); HEMOGLOBIN 8.6 gm/dL (14.0-18.0); LYMPHOCYTES 14.4 %; MCH 29.1 pg (26.0-34.0); MCHC 32.2 g/dL (28.0-37.0); MCV 90.5 fL (80.0-100.0); MONOCYTES 11.2 %; MPV 8.5 fl. (7.2-11.1); NUCLEATED RBCS 0 /100WBC; PLATELET COUNT* 220 thou/uL (150-400); POLYS 71.9 %; RBC 2.94 mil/uL (4.50-6.00); RDW-CV 18.7 % (10.5-14.5); WBC 4.8 thou/uL (4.0-11.0)
--- NOTE | 2020-10-07 07:36 | NUR ---
PATIENT SLEPT MOST OF THE NIGHT. R PORT REMAINS SALINE LOCKED. PATIENT WAS GIVEN PAIN MEDICINE ONCE FOR PAIN. WILL CONTINUE TO MONITOR.
[2020-10-07 07:37] LABS: ALBUMIN 2.1 g/dL (3.4-5.0); CALCIUM 8.5 mg/dL (8.5-10.1); MAGNESIUM 2.2 mg/dL (1.8-2.4); POTASSIUM 3.5 mmol/L (3.5-5.1); TOTAL BILIRUBIN 0.5 mg/dL (<0.1-1.0); TOTAL PROTEIN 7.2 g/dL (6.4-8.2)
[2020-10-07 08:20] VITALS: BP 123/67
--- NOTE | 2020-10-07 13:48 | NUR ---
Pt is A&O. Resides at home SO stays with Pt sometimes. Pt has a walker for mobility. Has home o2 through [employer]. [facility] of [facility]. Hx of SNF in [place], [place]. Pt on ivabx. Anticipate dc to home in a few days with HH. Following.
[2020-10-07 17:01] VITALS: BP 126/56
--- NOTE | 2020-10-07 18:06 | NUR ---
PT A&OX4 VSS. PT UP SBA TO COMMODE. PT REMAINS CONTINENT OF B/B. DRESSING TO L SIDE C/D/I. PT REMAINS ON ROOM AIR IN DAY TIME, SAT 98-100%. PT IS ACCUCHECKS, PERSONAL MONITOR IN PLACE ON PT UPPER L ARM. PT RESTING IN BED WITH CALL IGHT IN REACH.
[2020-10-07 20:45] VITALS: BP 122/64
--- NOTE | 2020-10-07 23:32 | CON ---
[address] [address] CONSULTATION Name: ANTHONY MARChelsea Ashlyn Room: [address] IN M.R.#: [id number] Admission: 10/05/20 Attend Phys: uLke Singleton Discharge: Date of : 38 Report #: [id number] THIS REPORT FOR: cc: Moody Dalal Steve T. DO Pervez, Adeel MD ~ DOC #: [id number] Nitin Jones MD DATE OF CONSULTATION: 10/06/2020 Consult has been requested by Dr. Alves. INDICATION FOR CONSULTATION: Purulent discharge from PleurX catheter. HISTORY OF PRESENT ILLNESS: This is an 80-year-old gentleman, I follow him in the office. The patient has a previous history of smoking. He does have COPD. 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 The patient also has a history of esophageal cancer. He has previously had pleurodesis on the right side. Last year, he developed acute renal failure, which unfortunately progressed to chronic renal failure. The patient has previously had surgery for esophageal cancer, around 10 years ago. He had a pleural effusion on the left side as well in between the admissions at this hospital, in fact got addressed at [facility] by Light's criteria, as well as on various thoracenteses, he had borderline transudate; however, it was essentially behaving like an exudative pleural effusion. The protein in the pleural effusion was around 3.1. The patient eventually had a PleurX catheter placed on the left side. The patient now is admitted because he states that there was no longer any fluid coming from the pleural catheter and in fact having thick white discharge instead. He says he eventually had a small amount of bloody/hemorrhagic discharge; and therefore, he came to the Emergency Room. At this time, the patient is not complaining of any increase in shortness of breath or cough. He has had a chest pain on the right side and in his back with respiration and coughing noted. The pleural catheter was on the left side. The Interventional Radiology Service has already removed this pleural catheter and sent it for cultures. The patient currently is hemodynamically stable. He is on room air. The patient has had disturbed sleep at night as well as sleepiness during the day. These complaints are at baseline. He does not have swelling of lower extremities or calf pain. He says he has been constipated. REVIEW OF SYSTEMS: He answers to the negative for 12 questions for review of systems except that he has had difficulty hearing. PAST MEDICAL HISTORY: Esophageal cancer. Previous pleurodesis on the right side; recurrent bilateral pleural effusions, most recently on the left side; [place] [address] CONSULTATION Name: WINDY MAR V Room: [address] IN .R.#: [id number] Admission: 10/05/20 Attend Phys: Luke Singleton Discharge: Date of : 38 Report #: [id number] further discussion above; had a PleurX catheter that has just been removed. COPD. Dysphagia. Acute renal failure last year, progressing now to chronic renal failure; however, the patient has not needed hemodialysis. The patient's last echocardiogram shows a left ventricular ejection fraction of 60-65% with a pulmonary artery systolic of 40-45. Also, history of diabetes, hyperlipidemia, hypertension. The patient is on long-term anticoagulation with Eliquis. SOCIAL HISTORY: Extensive history of smoking, discontinued in 2009. No known history of heavy alcohol use or illegal drug use. Did use smokeless tobacco as well. ALLERGIES: No known drug allergies. MEDICATIONS: [facility] medication list in [facility]. Home medication list also in [facility] reviewed. FAMILY HISTORY: Diabetes and hypertension. PHYSICAL EXAMINATION: GENERAL: He is alert, awake and oriented, does not appear to be in any distress. VITAL SIGNS: Pulse of 53; blood pressure of 128/63; he is saturating 97%, he is not on supplemental oxygen; his respiratory rate is 16-17; he is afebrile with a temperature of 36.3. HEENT: Head is normocephalic and atraumatic. Pupils are equal and reactive. There is no throat erythema. NECK: Does not show raised JVP, asymmetry, mass or lymph nodes. CHEST: Symmetrical expansion on inspection and palpation. On auscultation, breath sounds are bilaterally equal, decreased at bilateral lung bases, no added sounds. HEART: Regular. There is no murmur. ABDOMEN: Soft and nontender. LOWER EXTREMITIES: Show no edema and no calf tenderness. SKIN: Dry and intact. NEUROLOGICAL: Moves all extremities bilaterally equally and spontaneously with no focal deficit identified. IMAGING STUDIES: The patient's CT chest is compared with the patient's previous CT chest, this is as discussed below. I reviewed several chest x-rays as well. A CT spine performed, I reviewed the report. LABORATORY DATA: The patient's lab work, which does show chronic renal failure in [facility] reviewed. [address] [address] CONSULTATION Name: WINDY MAR V Room: [address] IN [facility]#: [id number] Admission: 10/05/20 Attend Phys: Luke Singleton Discharge: Date of : 38 Report #: [id number] ASSESSMENT AND PLAN: 1. Left-sided pleural effusion, status post PleurX catheter/pulmonary infiltrates. I reviewed the new CT and compared with the patient's previous CT. Pleural effusions in fact do not look significantly different. There is increase in infiltrates on the new CT compared with the old, but this could be secondary to fluid changes as well. It is not fully apparent to me as to whether the patient's PleurX catheter in fact was infected as it has now been removed. If it in fact was infected, then the patient may require extensive surgery including thoracotomy and decortication, which obviously will have significant morbidity and mortality risks considering his comorbid conditions. At this time, we would await cultures. The patient was on vancomycin. He has chronic renal failure. I discontinued his vancomycin and started Zyvox instead. We will continue with ceftriaxone. Once cultures are available, we will adjust antibiotics accordingly. If the patient in fact does appear to be infected, then I will consider obtaining a CT Surgery consult as well. Note, however, that the patient currently is not febrile and he does not have a white count, he has had no worsening in his respiratory status, remains on room air, there is no bandemia. Therefore, I have decided to watch for now on antibiotics and follow cultures. We will do a sputum culture as well. 2. Chronic obstructive pulmonary disease. Does not appear to be actively bronchospastic. I will still give him nebulized bronchodilators. He is on oxygen while asleep, chcf. 3. Chronic renal failure. He is both on IV fluids as well as Lasix. I discontinued both. Reassess tomorrow. Vancomycin also discontinued as above. 4. History of esophageal cancer and dysphagia. We will ask Speech to reassess a swallow evaluation as well. 5. Anticoagulation. The patient is noted to be anticoagulated with Eliquis. 6. Pulmonary hypertension. We just repeated an echo. This now shows a pulmonary artery systolic elevated to around 55-60. It does not appear likely to me that the patient had thromboembolism though as he has been on anticoagulation. 7. Hypersomnia/sleep disturbances. I had ordered a sleep study. The patient, however, has not had the same performed yet. Thanks for this consultation. Nitin Jones MD /[place] [address] CONSULTATION Name: WINDY MAR V Room: [address] IN [facility].#: [id number] Admission: 10/05/20 Attend Phys: Luke Singleton Discharge: Date of : 38 Report #: [id number] <ELECTRONICALLY SIGNED> By: Nitin Jones MD 10/07/20 2332 [id number] marcy Pacheco
--- NOTE | 2020-10-08 08:02 | NUR ---
PATIENT HAS SLEPT WELL THROUGHOUT MOST OF THE NIGHT. VSS ON 2L 02 VIA NASAL CANNULA. MEDICATIONS GIVEN ORDERED AND CHARTED. PATIENT UP WITH SBA. PATIENT INSTRUCTED TO USE CALL LIGHT WHEN NEEDING ASSISTANCE. HOURLY ROUNDS MADE. WILL CONTINUE WITH PLAN OF CARE AND NURSING TO MONITOR.
[2020-10-08 08:30] VITALS: BP 128/63
--- NOTE | 2020-10-08 12:49 | NUR ---
Cultures pending. Anticipate dc in 1-2 days. ?HH
[2020-10-08 16:00] VITALS: BP 120/65
[2020-10-08 20:00] VITALS: BP 126/77
--- NOTE | 2020-10-08 20:29 | NUR ---
Pt remained A&O x4 for entire shift. Vital signs stale. Pt pleasant with staff. Pt given meds per AUG. Pt complained of neck/shoulder pain that was resolved with meds. Pt denies any other needs. Dressing over wound where the pleural catheter was removed was replace. Dressing had a small amount of green/yellow drainage but the rest was saturated with serosanguinous fluid. Wound rinsed with normal saline and new dressing applied. Bed in low position, call light within reach.
--- NOTE | 2020-10-09 05:42 | NUR ---
PATIENT SAID HE DID NOT SLEEP WELLD URING THIS SHIFT. ORDER RECEIVED FOR MELATONIN BUT PT WAS SLEEPING WHEN MED BECAME AVAILABLE IN [facility]. PT VOIDS YELLOW URINE PER URINAL. PT REQUESTED SUPPOSITORY THIS AM. DSG ON LT CHEST C/D/I. PT DENIES NEEDS AT THIS TIME. WILL CONTINUE TO MONITOR.
--- NOTE | 2020-10-09 06:37 | NUR ---
ATTEMPT MADE TO DO MRSA SWAB BUT PT SAID IT WAS DONE TWO DAYS AGO AND WAS VERY ANGRY THAT HE HAD TO HAVE A SECOND ONE DONE. PT SAID HE HAD FIRST ONE DONE WHILE IN ICU. PT WAS NOT IN ICU DURING THIS HOSPITAL STAY AND NO RESULTS WERE FOUND IN THE COMPUTER. PT SAID HE WAS GOING BACK TO SLEEP HE HAS NOT SLEPT ALL NIGHT AND NOT TO WAKE HIM AT THIS TIME FOR A SWAB. WILL CONTINUE TO MONITOR.
[2020-10-09 08:28] VITALS: BP 105/58
[2020-10-09] MEDS ORDERED: DOXYCYCLINE 10100 MG PO (10:04)
[2020-10-09] MEDS ORDERED: CEFPROZIL500 MG PO (10:06)
[2020-10-09 12:29] VITALS: BP 105/58
--- NOTE | 2020-10-09 12:33 | NUR ---
Pt discharging to home today with [facility], faxed orders and referral.
[2020-10-09 14:29] VITALS: BP 105/58
[2020-10-09 14:41] VITALS: BP 105/58
--- NOTE | 2020-10-09 15:36 | NUR ---
PATIENT GIVEN DISCHARGE INSTRUCTIONS AND INFORMATION SHEETS GIVEN FOR NEW ANTIBIOTIC PRESCRIPTIONS. PORT A CATH PACKED WITH HEPARIN FLUSH AND DEACCESSED. PATIENT DENIES PAIN/QUESTIONS/CONCERNS PRIOR TO D/C. PATIENT LEFT UNIT WITH PERSONAL BELONGINGS VIA W/C ACCOMPANIED BY NURSING STAFF AND SO AT APPROX. 1533.
[2020-10-09 15:38] VITALS: BP 105/58
== END 2020-10-09 15:33 | disposition home health service (06) | DRG 919 ==
LOC: M.ERS 14:03 → M.TBA-ER 17:19 → M.ORTHSURG 10-06 11:38
PROVIDERS: Family Medicine; Internal Medicine; ADMIT Internal Medicine; ATTEND Internal Medicine
PROC: 0WPBX3Z Removal of Infusion Device from Left Pleural Cavity, External Approach (ICD-10-PCS; principal; 2020-10-06)
PROC: 0JPT3XZ Removal of Tunneled Vascular Access Device from Trunk Subcutaneous Tissue and Fascia, Percutaneous Approach (ICD-10-PCS; principal; 2020-10-06)
DX: T85.79XA Infection and inflammatory reaction due to other internal prosthetic devices, implants and grafts, initial encounter (principal); E43 Unspecified severe protein-calorie malnutrition; N17.0 Acute kidney failure with tubular necrosis; J18.9 Pneumonia, unspecified organism; N18.4 Chronic kidney disease, stage 4 (severe); I50.32 Chronic diastolic (congestive) heart failure; I13.0 Hypertensive heart and chronic kidney disease with heart failure and stage 1 through stage 4 chronic kidney disease, or unspecified chronic kidney disease; Z20.822 Contact with and (suspected) exposure to COVID-19; Z87.01 Personal history of pneumonia (recurrent); I27.20 Pulmonary hypertension, unspecified; E11.22 Type 2 diabetes mellitus with diabetic chronic kidney disease; J44.9 Chronic obstructive pulmonary disease, unspecified; G47.10 Hypersomnia, unspecified; Y83.8 Other surgical procedures as the cause of abnormal reaction of the patient, or of later complication, without mention of misadventure at the time of the procedure; T85.618A Breakdown (mechanical) of other specified internal prosthetic devices, implants and grafts, initial encounter; R31.9 Hematuria, unspecified; Z79.899 Other long term (current) drug therapy; Z79.4 Long term (current) use of insulin; Z87.891 Personal history of nicotine dependence; Z85.01 Personal history of malignant neoplasm of esophagus; Z92.3 Personal history of irradiation; Z92.21 Personal history of antineoplastic chemotherapy; Z82.49 Family history of ischemic heart disease and other diseases of the circulatory system; Z68.23 Body mass index [BMI] 23.0-23.9, adult; Y92.89 Other specified places as the place of occurrence of the external cause

== ENCOUNTER → 2020-11-17 | Outpatient (CLI) | payer MEDICARE, BC ==
[~2020-11-17] MED LIST changes: +CEFPROZIL500 MG PO; +DOXYCYCLINE 10100 MG PO; +TRAMADOL 50 MG50 MG PO
== END ==
LOC: M.CT 12:55
PROVIDERS: ATTEND Internal Medicine Critical Care Medicine
DX: C15.9 Malignant neoplasm of esophagus, unspecified (principal); J90 Pleural effusion, not elsewhere classified; J98.11 Atelectasis

== ENCOUNTER → 2020-12-10 | Outpatient (CLI) | payer MEDICARE, BC | LOC: M.LAB 15:43 | PROVIDERS: ATTEND Internal Medicine Critical Care Medicine | DX: J44.9 Chronic obstructive pulmonary disease, unspecified (principal) ==

== ENCOUNTER → 2021-01-06 | Outpatient (CLI) | payer MEDICARE, BC ==
[2021-01-06 12:08] LABS: HEMOGLOBIN 10.5 gm/dL (14.0-18.0)
[2021-01-06 12:25] LABS: ALBUMIN 2.9 g/dL (3.4-5.0); CALCIUM 8.7 mg/dL (8.5-10.1); CREATININE 2.2 mg/dL (0.6-1.3); POTASSIUM 4.4 mmol/L (3.5-5.1); TOTAL BILIRUBIN 0.6 mg/dL (<0.1-1.0)
[2021-01-06 12:35] LABS: CALCIUM 8.5 mg/dL (8.5-10.1); CREATININE 2.2 mg/dL (0.6-1.3); PHOSPHORUS* 4.1 mg/dL (2.5-4.9)
== END ==
LOC: M.LAB 11:46
PROVIDERS: ATTEND Internal Medicine Nephrology
DX: N18.4 Chronic kidney disease, stage 4 (severe) (principal)

== ENCOUNTER 2021-02-21 00:43 | Inpatient (IN) | payer MEDICARE, BC ==
[2021-02-21] VITALS (7 sets, daily range): BP systolic 109–127; BP diastolic 57–78
[~2021-02-21] VITALS: Ht 177.8 cm; Wt 79.4 kg
--- NOTE | ~2021-02-21 | PROC ---
[facility] [address] [place] [address] PROCEDURE REPORT Name: WINDY MAR V Room: [address] ADM IN M.R.#: [id number] Admission: 02/21/21 Attend Phys: Luke Singleton Discharge: Date of : 38 Report #: [id number] THIS REPORT FOR: cc: Moody Dalal Steve T. DO [facility],Medical Records Staff ~ For Gi report, please see the Provation report in Perceptive 7 content. By: 0646Medical Records Staff ELANA /TRACI
[2021-02-21 01:27] LABS: ABSOLUTE EOSINOPHILS 0.1 thou/uL (0.0-0.7); ABSOLUTE LYMPHOCYTES 0.5 thou/uL (0.8-5.3); ABSOLUTE MONOCYTES 0.4 thou/uL (0.0-1.2); ABSOLUTE NEUTROPHILS 3.9 thou/uL (1.6-8.1); BASOPHILS 0.6 %; EOSINOPHILS 1.5 %; HEMATOCRIT 28.5 % (42.0-52.0); HEMOGLOBIN 9.5 gm/dL (14.0-18.0); LYMPHOCYTES 10.5 %; MCH 32.5 pg (26.0-34.0); MCHC 33.4 g/dL (28.0-37.0); MCV 97.3 fL (80.0-100.0); MPV 9.7 fl. (7.2-11.1); NUCLEATED RBCS 0 /100WBC; PLATELET COUNT* 131 thou/uL (150-400); POLYS 78.4 %; RBC 2.93 mil/uL (4.50-6.00); RDW-CV 14.1 % (10.5-14.5)
[2021-02-21 01:31] LABS: CALCIUM 8.5 mg/dL (8.5-10.1); POTASSIUM 4.3 mmol/L (3.5-5.1)
[2021-02-21 01:41] LABS: ALBUMIN 2.6 g/dL (3.4-5.0); MAGNESIUM 2.5 mg/dL (1.8-2.4); TOTAL BILIRUBIN 0.5 mg/dL (<0.1-1.0); TOTAL PROTEIN 6.6 g/dL (6.4-8.2)
[2021-02-21 01:49] LABS: URINE BILIRUBIN NEGATIVE (Negative); URINE BLOOD 1+ (Negative); URINE CLARITY CLEAR; URINE COLOR YELLOW; URINE GLUCOSE-RANDOM TRACE (Negative); URINE KETONES NEGATIVE (Negative); URINE LEUKOCYTES-REFLEX NEGATIVE (Negative); URINE NITRITE-REFLEX NEGATIVE (Negative); URINE PROTEIN NEGATIVE (Negative); URINE UROBILINOGEN 0.2 E.U./dl (0.2-1.0)
[2021-02-21 02:14] LABS: CASTS None Seen /LPF (None Seen); SQUAMOUS 0-3 Few /LPF (0-3)
[2021-02-21 02:15] LABS: BACTERIA-REFLEX 1-9 Few /HPF (None Seen); CRYSTALS None Seen /LPF (None Seen); URINE RBC 3-10 Few /HPF (0-2); URINE WBC-REFLEX 0-5 Rare /HPF (0-5)
--- NOTE | 2021-02-21 10:36 | EKG ---
[place] [address] ELECTROCARDIOGRAM REPORT Name: WINDY MAR V Room: [place] [address] ADM IN [facility].#: [id number] Admission: 02/21/21 Attend Phys: Marilee Juarez Discharge: Date of : 36 Date of Service: 02/21/21 0110 Report #: [id number] THIS REPORT FOR: //name// [facility] ED Test Date: 2021-02-21 Test Time: 01:10:35 Pat Name: WINDY MAR Department: Room: [facility] Gender: M Utilization Manager: MONO : 1940 Requested By: Britt Meek Order Number: [id number] MD: Devonte Christina Measurements Intervals [place] Rate: 75 P: DC: QRS: 152 QRSD: 152 T: 17 QT: 455 QTc: 509 Interpretive Statements Atrial fibrillation Ventricular premature complex Right bundle branch block Baseline wander in lead(s) V1 Compared to ECG 10/05/2020 14:49:46 no change Electronically Signed On 02-21-2021 10:36:22 CDT by Devonte Christina [email or web address] <ELECTRONICALLY SIGNED> By: Devonte Christina MD, [facility] 02/21/21 1036 0110 0110 Devonte Christina MD, [facility] /EPI
[2021-02-22] VITALS: BP 114/54
[2021-02-22 04:00] VITALS: BP 115/59
--- NOTE | 2021-02-22 05:46 | NUR ---
PT ALERT ORIENTED. PILLOW FROM HOME THAT PT SITS ON. SACRAL WOUND WITH FOAM DRSG. TWO SKIN TEARS. R ELBOW AND R FOR ARM. 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 PT REFUSES TO TURN TO SIDE. O2 2 LITERS.
[2021-02-22 07:42] LABS: ABSOLUTE BASOPHILS 0.1 thou/uL (0.0-0.2); ABSOLUTE EOSINOPHILS 0.1 thou/uL (0.0-0.7); ABSOLUTE LYMPHOCYTES 0.8 thou/uL (0.8-5.3); ABSOLUTE MONOCYTES 0.6 thou/uL (0.0-1.2); ABSOLUTE NEUTROPHILS 4.8 thou/uL (1.6-8.1); EOSINOPHILS 2.3 %; HEMATOCRIT 29.9 % (42.0-52.0); HEMOGLOBIN 9.5 gm/dL (14.0-18.0); MCH 31.3 pg (26.0-34.0); MCHC 31.9 g/dL (28.0-37.0); MCV 98.2 fL (80.0-100.0); MONOCYTES 8.8 %; MPV 8.8 fl. (7.2-11.1); NUCLEATED RBCS 0 /100WBC; PLATELET COUNT* 159 thou/uL (150-400); POLYS 75.9 %; RBC 3.05 mil/uL (4.50-6.00); RDW-CV 14.3 % (10.5-14.5); WBC 6.4 thou/uL (4.0-11.0)
[2021-02-22 08:04] LABS: ALBUMIN 2.6 g/dL (3.4-5.0); CALCIUM 8.8 mg/dL (8.5-10.1); CREATININE 3.9 mg/dL (0.6-1.3); MAGNESIUM 2.6 mg/dL (1.8-2.4); POTASSIUM 4.6 mmol/L (3.5-5.1); TOTAL BILIRUBIN 0.6 mg/dL (<0.1-1.0); TOTAL PROTEIN 6.4 g/dL (6.4-8.2)
[2021-02-22 09:21] LABS: ESR (SEDRATE) 4 mm/hr (0-20)
--- NOTE | 2021-02-22 13:51 | 2DMMODE ---
[place] [address] 2 D/M-MODE ECHOCARDIOGRAM Name: WINDY MAR V Room: [address] IN .R.#: [id number] Admission: 02/21/21 Attend Phys: Marilee Juarez Discharge: Date of : 36 Date of Service: 02/22/21 1351 Report #: [id number] THIS REPORT FOR: cc: Moody Dalal,Moody Ochoa,Devonte Metz MD [facility] ~ APPROVED REPORT Study performed: 02/22/2021 10:13:27 EXAM: Comprehensive 2D, Doppler, and color-flow Echocardiogram Patient Location: In-Patient Room #: [facility] Status: routine BSA: 1.98 HR: 80 bpm BP: 115/59 mmHg Rhythm: Atrial Fibrillation Other Information Study Quality: Excellent Indications Congestive Heart Failure 2D Dimensions IVSd: 11.04 (7-11mm) LVOT Diam: 23.84 (18-24mm) LVDd: 40.86 mm PWd: 10.21 (7-11mm) Ascending Ao: 32.58 (22-36mm) LVDs: 19.08 (25-40mm) Aortic Root: 31.63 mm Volumes Left Atrial Volume (Systole) LA ESV Index: 53.20 mL/m2 Aortic Valve AoV Peak Rishabh.: 2.00 m/s AO Peak Gr.: 15.94 mmHg LVOT Max P.85 mmHg AO Mean Gr.: 9.72 mmHg LVOT Mean P.26 mmHg LVOT Max V: 0.68 m/s AO V2 VTI: 43.86 cm LVOT Mean V: 0.54 m/s LALITO (VTI): 1.36 cm2 LVOT V1 VTI: 13.40 cm AI [place]: 5.09 m/s2 [place] [address] 2 D/M-MODE ECHOCARDIOGRAM Name: WNIDY MAR V Room: [address] IN .R.#: [id number] Admission: 02/21/21 Attend Phys: Marilee Juarez Discharge: Date of : 36 Date of Service: 02/22/21 1351 Report #: [id number] PHT: 212.25 ms TDI Medial E' Rishabh.: 0.09 m/s Lateral E' Rishabh.: 0.09 m/s Pulmonary Valve PV Peak Rishabh.: 0.83 m/s PV Peak Gr.: 2.76 mmHg Tricuspid Valve RAP Estimate: 15.00 mmHg TR Peak Gr.: 35.38 mmHg RVSP: 50.00 mmHg PA Pressure: 50.00 mmHg Left Ventricle The left ventricle is normal size. There is normal LV segmental wall motion. There is normal left ventricular wall thickness. Left ventricular systolic function is normal. The left ventricular ejection fraction is within the normal range. LVEF is 65-70%. This study is not technically sufficient to allow evaluation of the LV diastolic function due to atrial fibrillation. Right Ventricle The right ventricle is normal size. The right ventricular systolic function is normal. Atria Left atrium is severely dilated. Right atrium is dilated. Aortic Valve Aortic valve is calcified. Moderate aortic regurgitation. Mild aortic stenosis. Mitral Valve The mitral valve is normal in structure. Mild mitral regurgitation. No evidence of mitral valve stenosis. Tricuspid Valve The tricuspid valve is normal in structure. Mild tricuspid regurgitation. estimated pa pressure 45 mm Hg Pulmonic Valve The pulmonary valve is normal in structure. Trace pulmonic regurgitation[place] [address] 2 D/M-MODE ECHOCARDIOGRAM Name: WINDY MAR V Room: [address]#: [id number] Admission: 02/21/21 Attend Phys: Marilee Juarez Discharge: Date of : 36 Date of Service: 02/22/21 1351 Report #: [id number] The aortic root is normal in size. IVC is dilated and collapses <50% with inspiration. Pericardium There is no pericardial effusion. Left pleural effusion. <Conclusion> LVEF is 65-70%. Left atrium is severely dilated. Right atrium is dilated. Moderate aortic regurgitation. Mild aortic stenosis. Mild mitral regurgitation. Mild tricuspid regurgitation. estimated pa pressure 45 mm Hg <ELECTRONICALLY SIGNED> By: Devonte Christina MD, [facility] 02/22/21 135 50 50 Devonte Christina MD, FACC /INF
[2021-02-22 14:30] VITALS: BP 122/68
[2021-02-22 16:00] VITALS: BP 109/55
[2021-02-22 20:00] VITALS: BP 113/55
[2021-02-23 00:23] VITALS: BP 115/61
[2021-02-23 02:06] LABS: GLYCOHEMOGLOBIN (HGB A1C) 7.3 % (4.8-5.6)
[2021-02-23 04:59] VITALS: BP 114/61
[2021-02-23 05:22] LABS: HEMATOCRIT 27.7 % (42.0-52.0); HEMOGLOBIN 9.2 gm/dL (14.0-18.0); MCH 32.5 pg (26.0-34.0); MCHC 33.4 g/dL (28.0-37.0); MCV 97.4 fL (80.0-100.0); MPV 9.3 fl. (7.2-11.1); RBC 2.85 mil/uL (4.50-6.00); WBC 4.3 thou/uL (4.0-11.0)
[2021-02-23 05:32] LABS: CALCIUM 8.8 mg/dL (8.5-10.1); CREATININE 3.8 mg/dL (0.6-1.3); POTASSIUM 3.9 mmol/L (3.5-5.1)
[2021-02-23 08:25] VITALS: BP 111/55
--- NOTE | 2021-02-23 10:19 | NUR ---
WOUND NURSE: PATIENT SEEN THIS MORNING TO ADDRESS SACRAL SKIN ABNORMALITY. PRESENTS WITH A CALLOUS MEASURING 2.0 X 1.0 CM ON THE COCCYX. THERE IS NO OPEN WOUND. PROTECTED SITE USING BORDERED FOAM DRESSNG; PATIENT BROUGHT HIS HORSESHOE SEAT CUSHION FROM HOME. PATIENT UNDERSTANDS THE NEED TO PROTECT COCCYX WITH SIDE TO SIDE REPOSITIONING EVERY 1 TO 2 HOURS.
[2021-02-23 11:41] LABS: BE 1.5 mmol/L (-2 to +3); pH 7.329 (7.340-7.450)
[2021-02-23 11:43] LABS: PO2 212.7 mmHg (75.0-100.0)
[2021-02-23 11:48] LABS: PCO2 54.7 mmHg (35.0-45.0)
[2021-02-23 11:56] VITALS: BP 114/56
[2021-02-23 16:43] VITALS: BP 124/58
--- NOTE | 2021-02-23 17:57 | NUR ---
PT LETHARGIC THIS MORNING BLOOD SUGAR 38, 25 ML OF D50 PUSHED AND IT CAME UP TO 88. PT CHECKED LATER AND OBSERVED LATER BREATHING FROM HIS MOUTH WAS ON 2L NC AND O2 SAT WAS 78, PT WAS PLACED ON A NON-REBREATHER AND CAME UP TO 99 AND WAS TAKEN TO 5L, HE WAS MORE ALERT AND BREATHING THROUGH HIS NOSE USING THE NASAL CANULA. RESP THERAPY CHECKED PATIENT AN HOUR LATER AND HIS SATS DROPPED IN THE 70S AGAIN AND HE WAS PLACED ON THE NON-REBREATHER AND A RAPID RESPONSE WAS CALLED. CXR WAS ORDERED, IVP LASIX, LABS WERE DRAWN. PT WAS ABLE TO COME ON NONREABREATHER AND WAS PLACED ON HFNC AT 7L. PT GIRLFRIEND AT BEDSIDE FOR DINNER AND HEW WAS MORE ALERT
[2021-02-23 20:25] VITALS: BP 140/66
[2021-02-24 00:50] VITALS: BP 135/57
[2021-02-24 04:00] VITALS: BP 130/71
[2021-02-24 04:51] LABS: CALCIUM 8.6 mg/dL (8.5-10.1); CREATININE 3.6 mg/dL (0.6-1.3); POTASSIUM 3.8 mmol/L (3.5-5.1)
--- NOTE | 2021-02-24 04:55 | NUR ---
PT ALERT AND ORIENTED, OXYGEN AT 5L, NO PAIN OR NAUSEA REPORTED. HE HAS A WOUND ON SACRAL AREA, DRESSING INTACT. USING URINAL AT BEDSIDE. HE CAN GET UP TO CHAIR STANDBY. HE RECEIVED ALL HIS MEDS SCHEDULED. WILL CONTINUE TO MONITOR.
[2021-02-24 05:07] LABS: HEMATOCRIT 27.8 % (42.0-52.0); HEMOGLOBIN 9.3 gm/dL (14.0-18.0); MCH 32.6 pg (26.0-34.0); MCHC 33.4 g/dL (28.0-37.0); MCV 97.4 fL (80.0-100.0); MPV 9.2 fl. (7.2-11.1); RBC 2.86 mil/uL (4.50-6.00); RDW-CV 13.9 % (10.5-14.5); WBC 5.3 thou/uL (4.0-11.0)
[2021-02-24 08:41] VITALS: BP 135/65
[2021-02-24 12:00] VITALS: BP 139/78
--- NOTE | 2021-02-24 13:44 | CON ---
[address] [address] CONSULTATION Name: ANTHONY MARChelsea Ashlyn Room: [address] IN M.R.#: [id number] Admission: 02/21/21 Attend Phys: Luke Singleton Discharge: Date of : 38 Report #: [id number] THIS REPORT FOR: cc: Moody Dalal Steve T. DO Blick, David R. MD [facility] ~ cc: Moody Dalal DO DATE OF CONSULTATION: 02/22/2021 CARDIOLOGY CONSULTATION HISTORY OF PRESENT ILLNESS: The patient is an 80-year-old white male who I was asked to see in the hospital today because of abdominal bloating. The patient has extensive and complicated past medical history. He has a history of permanent atrial fibrillation. He has been chronically anticoagulated. In the past, he was found to have evidence of esophageal cancer and underwent resection at [facility] by Dr. Sampson followed by chemotherapy and radiation therapy. He has a history of chronic swelling and last year had a PleurX catheter placed for chronic pleural effusion. His previous workup included an echocardiogram done earlier today that showed ejection fraction of 60%, biatrial enlargement, moderate aortic regurgitation, mild aortic stenosis, mild mitral regurgitation. The patient had a stress test in 2018 that was negative for ischemia. He apparently was just admitted to [place] 2 weeks ago and was sent home. Recently, the patient has been coughing, short of breath, noticed some abdominal distention. They called the ambulance and he was brought here to [place] for further evaluation and treatment. He denies any chest pain, palpitations, bleeding. PAST MEDICAL HISTORY: He has had bilateral carotid surgery. He has stents placed in both kidneys at [place]. He has diabetes, hypertension, hyperlipidemia. CURRENT MEDICATIONS: Consists of albuterol inhaler for COPD, Eliquis, insulin, midodrine for low blood pressure, simvastatin, Flomax, torsemide 40 in the morning and 20 in the afternoon. ALLERGIES: He has no known drug allergies. FAMILY HISTORY: His father of heart attack. SOCIAL HISTORY: He is . He and his live in [place], [place]. He quit smoking in 2009. Used to drink up to 12-pack a day on the weekends[place] [address] CONSULTATION Name: WINDY MAR V Room: [address] IN [facility].#: [id number] Admission: 02/21/21 Attend Phys: Luke Singleton Discharge: Date of : 38 Report #: [id number] REVIEW OF SYSTEMS: He has had no previous history of stroke. He does have COPD. No history of liver disease, chronic skin condition, psychiatric illness. PHYSICAL EXAMINATION: GENERAL: Revealed an elderly male, lying in bed, appeared in no distress. VITAL SIGNS: He had a blood pressure 120/60, pulse is 70, he was afebrile. HEENT: He was anicteric. Conjunctivae pink. Mucosa is moist. NECK: Veins not appear distended. No carotid bruits. Neck was supple. CHEST: Clear to auscultation. HEART: Irregular rhythm, no significant murmur. ABDOMEN: Soft, mildly distended. EXTREMITIES: Had trace edema. SKIN: Cool and dry. NEUROLOGIC: Nonfocal. DIAGNOSTIC DATA: His ECG showed atrial fibrillation, controlled ventricular response rate and a right bundle branch block. He has workup in the emergency room last night. He had a portable chest x-ray that showed cardiomegaly, mild vascular congestion, small effusions. He actually had a CT scan of the abdomen in the emergency room last night that showed atelectasis, small effusion, atherosclerosis of the abdominal aorta. LABORATORY DATA: His lab work, he had sodium 139, BUN 98, creatinine was 3.9. His high sensitivity troponin is 35. BNP 6860. His white blood cell count 6.4, hemoglobin 9.5, it was 9.4 in 2020. IMPRESSION AND RECOMMENDATIONS: 1. Acute diastolic heart failure. Recommend Lasix. 2. Chronic atrial fibrillation. Rate controlled. I will continue chronic anticoagulation with Eliquis. 3. History of hypotension. The patient on midodrine. 4. Hyperlipidemia. The patient is on a statin drug. 5. Chronic obstructive pulmonary disease. The patient on bronchodilators. 6. Chronic kidney disease. The patient appears to be getting close to dialysis. 7. History of esophageal cancer. 8. Previous bilateral carotid endarterectomy. The patient is on Eliquis. 9. Previous renal stent placement. 10. Previous alcohol excess. 11. Previous tobacco abuse. Fortunately, the patient no longer smokes. <ELECTRONICALLY SIGNED> By: Devonte Christina MD, FACC 02/24/21 1344 1442 1926Devonte Christina MD, FAC /nt
--- NOTE | 2021-02-24 13:49 | NUR ---
Pt is A&O. Resides at home, SO stays with Pt. Pt is normally independent, though progressively weak over the last few weeks. Pt has a walker that he can use for mobility. Home o2 through [employer]. Hx of [facility]. Hx of SNF. ARU consulted. Therapies to see. Following.
--- NOTE | 2021-02-24 14:39 | NUR ---
ASSUMED PT CARE AT 0730. PT IS A&OX3. GIRLFRIEND HERE MOST OF DAY WITH PT. PT REPORTS HE HAD A LARGE BM. ASSESSMENT COMPLETED. DRESSING INTACT TO SACRAL CALLOUS. SKIN TEAR TO R ELBOW IS SCABBED AND APPEARS TO BE HEALING WELL. PT DENIES ANY PAIN AND/OR DISCOMFORT THUS FAR. PT REPORTS HE FEELS WEAK. SAFETY MEASURES IN PLACE. MEDICATIONS ADMINISTERED ORDERED.
[2021-02-24 16:00] VITALS: BP 146/62
[2021-02-24 20:30] VITALS: BP 140/67
[2021-02-25 02:28] LABS: HEMATOCRIT 32.2 % (42.0-52.0); HEMOGLOBIN 10.7 gm/dL (14.0-18.0); MCH 32.5 pg (26.0-34.0); MCHC 33.2 g/dL (28.0-37.0); MCV 97.8 fL (80.0-100.0); MPV 8.9 fl. (7.2-11.1); RBC 3.29 mil/uL (4.50-6.00); WBC 7.8 thou/uL (4.0-11.0)
[2021-02-25 02:39] LABS: CALCIUM 8.8 mg/dL (8.5-10.1); CREATININE 3.3 mg/dL (0.6-1.3); POTASSIUM 3.5 mmol/L (3.5-5.1)
[2021-02-25 03:11] VITALS: BP 141/60
--- NOTE | 2021-02-25 04:52 | NUR ---
PT WOKE UP AROUND 0130 REPORTING HE DID NOT FEEL GOOD. HE SAID HIS CHEST AND EVERYTHING HURT. 50 MCG FENTANYL GIVEN. UPON REASSESSMENT HE SAID HE WAS NOT FEELINING GOOD AGAIN AND HIS LUNG SOUNDS WERE CRACKLY AND HE WAS NOT URINATING. BLADDER SCAN SHOWED OVER 600 ML. LASIX GIVEN AT 0300, [address] AT 0345. 300 ML URINE OUT IMMEDIATELY. HEART RATE WAS 140-160'S DURING THIS TIME. AT THIS TIME IS IS UNDER 100 AT 0500. HE IS RESTING COMFORTABLY. HIS OXYGEN IS AT 8L-NC. WHEN WE CHECKED AT 2 AM HE WAS ON 5L AND SAT 85%. AT THIS TIME HE IS SAT 97% AND COMFORTABLE. WILL CONTINUE TO MONITOR.
[2021-02-25 05:58] VITALS: BP 142/72
[2021-02-25 10:08] VITALS: BP 158/54
--- NOTE | 2021-02-25 13:23 | NUR ---
Pt not progressing well, Dr to discuss code status with Pt and SO. Lungs sound bad, pulm following.
[2021-02-25 15:10] LABS: CALCIUM 8.6 mg/dL (8.5-10.1); CREATININE 3.4 mg/dL (0.6-1.3); MAGNESIUM 2.3 mg/dL (1.8-2.4); POTASSIUM 3.8 mmol/L (3.5-5.1)
[2021-02-25 15:15] LABS: APTT 34.9 Seconds (25.0-31.3); INR 1.2; PROTIME 12.6 Seconds (9.20-11.50)
[2021-02-25 16:00] VITALS: BP 122/45
--- NOTE | 2021-02-25 17:04 | NUR ---
ASSUMED PT CARE AT 0730. ASSESSMENT COMPLETED. LUNGS COARSE BILAT AND NOT CLEARING WHEN ENCOURAGED TO COUGH. PT STATES HE FEELS WEAK TODAY. PHYSICIAN INFORMED AND NEW ORDERS RECEIVED AND IMPLEMENTED. DRESSING CHANGE COMPLETED TO SACRUM. MOISTURE BARRIER APPLIED TO REDDENED NASIR AREA. SAFETY MEASURES IN PLACE. PT ASSISTED WITH REPOSITIONING Q2HR. PT REPORTS HE FEELS LIKE ITS MAYBE HIS TIME TO GO. EMOTIONAL SUPPORT OFFERED. MEDICATIONS ADMINISTERED ORDERED.
--- NOTE | 2021-02-25 18:36 | CON ---
[address] [address] CONSULTATION Name: WINDY MAR V Room: [address] IN M.R.#: [id number] Admission: 02/21/21 Attend Phys: Luke Singleton Discharge: Date of : 38 Report #: [id number] THIS REPORT FOR: cc: Moody Dalal Steve T. DO Pervez, Adeel MD ~ DATE OF CONSULTATION: 02/25/2021 REQUESTING PHYSICIAN: Dr. Teague. INDICATION FOR CONSULTATION: Shortness of breath and hypoxia. HISTORY OF PRESENT ILLNESS: This is an 80-year-old gentleman with past medical history as mentioned below. He is well known to us. He has a history of COPD. He is on oxygen while asleep long-term. He is not on oxygen during the day. At his baseline, he has previously had pleurodesis on the right side and has a history of esophageal cancer. Last year he developed acute renal failure, which subsequently progressed to chronic renal failure. He, in addition to having a previous pleurodesis on the right side, has also had a recurrent pleural effusion, which was a borderline transudate on the left side. He previously had a PleurX catheter, which has now been removed. At one point, there was suspicion of infection in this pleural fluid, he received antibiotics, he did not have surgery for it. At this time, the patient is admitted with abdominal pain. He also has had difficulty swallowing. He reports shortness of breath. He has sputum production. He does have swelling of lower extremities. He is not able to describe the sputum to us. He does not have chest pain. I am told he has a sacral decubitus. He does not have upper respiratory complaints. He has been seen by the GI service. He has had an EGD and was noted to have esophageal candidiasis. He also was noted to be constipated. In addition, he had significant gastroparesis. He was also evaluated by the speech therapist who recommended a regular diet but strict aspiration precautions. The patient reports worsening shortness of breath. He still is saturating in the high 90s, he is on 4 liters nasal cannula, but he has increasing swelling of lower extremities. He has had low blood glucoses. He has very poor appetite and at this time feels depressed and reports lack of motivation to eat or to participate in therapy. He has had multiple joint pains, which are at baseline. REVIEW OF SYSTEMS: His review of systems for 12 points is negative except as mentioned above. He does have some sleep complaints and daytime sleepiness[place] [address] CONSULTATION Name: WINDY MAR V Room: [address] IN M.R.#: [id number] Admission: 02/21/21 Attend Phys: Luke Singleton Discharge: Date of : 38 Report #: [id number] PAST MEDICAL HISTORY: Esophageal carcinoma, previous pleurodesis on the right side, previous PleurX catheter on the left side which has now been removed; possibility of infection and the left pleural effusion in the past, he received antibiotics, did not receive surgery; longstanding history of dysphagia; acute renal failure in 2019, gradually progressing to chronic renal failure; pulmonary hypertension with pulmonary artery systolic is in fact now around 50 and this may in fact be an improvement compared with his previous echos; normal left ventricular ejection fraction; diabetes; hyperlipidemia; hypertension. The patient is anticoagulated for atrial fibrillation with Eliquis. SOCIAL HISTORY: Extensive history of smoking in the past, has now discontinued. No known history of heavy alcohol use or illegal drug use. CURRENT MEDICATINS: List in [facility] reviewed. HOME MEDICATIONS: List also in [facility] reviewed. FAMILY HISTORY: No pertinent family history. ALLERGIES: No known drug allergies. PHYSICAL EXAMINATION: GENERAL: He is alert, awake and oriented, appears to be very depressed. He is on 4 liters nasal cannula. He is saturating in the high 90s. VITAL SIGNS: He has a pulse is 68, blood pressure is 158/54. He is afebrile with a temperature of 36.2. Body mass index of 25. HEENT: Head is normocephalic and atraumatic. Pupils are equal and reactive. There is no throat erythema. I did not identify thrush in his throat. NECK: Does not show raised JVP asymmetry, mass or lymph nodes. CHEST: Symmetrical expansion on inspection and palpation. On auscultation, there are transmitted sounds from upper airways. Breath sounds are decreased to absent at bilateral lung bases. Expirations are prolonged. HEART: Regular. There is no murmur. ABDOMEN: Mildly distended, nontender. EXTREMITIES: Lower extremities show 2+ edema bilaterally. No calf tenderness. SKIN: Dry and intact. NEUROLOGIC: Moves all extremities bilaterally equally and spontaneously with no focal deficit identified. IMAGING: The patient's chest x-ray performed today and compared with the patient's previous chest x-rays compared with the x-ray performed on admission. There is progressive worsening of fluid overload. The patient has pulmonary edema. I suspect that there are significant [place] [address] CONSULTATION Name: WINDY MAR V Room: [address]#: [id number] Admission: 02/21/21 Attend Phys: Luke Singleton Discharge: Date of : 38 Report #: [id number] well. The patient's lab work, which does show chronic renal failure in [facility] reviewed. Arterial blood gas is consistent with hypercarbic respiratory failure. ASSESSMENT AND PLAN: 1. Acute on chronic hypoxemic and hypercarbic respiratory failure. In the background, the patient does have significant chronic obstructive pulmonary disease. He now appears to have developed fluid overload, which appears to be the primary etiology of his decompensation. I suspect that there are underlying infiltrates as well. We will continue to titrate his oxygen. I discussed with the patient regarding BiPAP while asleep. If he is comfortable wearing a BiPAP while asleep we will start it as well. 2. Fluid overload/congestive heart failure/chronic renal failure/pleural effusions: I discussed with Dr. Garcia. He will look under ultrasound and see if thoracentesis can be performed. We will first assess as to whether fluid by thoracentesis could be removed. I will subsequently assess as to how to best diurese him. I will work in conjunction with the Nephrology Service to understand that he is not a candidate for dialysis. Potentially we will consider more Lasix with or without albumin, but there will be significant risks in worsening his renal failure. 3. Pulmonary infiltrates. We will do cultures and then we will start broad spectrum antibiotics. Note that he is MRSA positive. Therefore, we will give him linezolid as well as Levaquin. We will do pancultures. 4. Chronic obstructive pulmonary disease exacerbation. We will start with Solu-Medrol. We will switch his albuterol over to DuoNeb. Note that he is on oxygen while asleep long-term. 5. Hypoglycemia, likely will resolve with a steroid. I will check a cortisol level prior to giving him the first dose of Solu-Medrol. We will follow blood glucoses closely. 6. Past medical history of esophageal carcinoma. 7. Past medical history of right-sided pleurodesis and left-sided chest PleurX catheter, which has now been removed. 8. Constipation/gastroparesis. GI service on the case. 9. Atrial fibrillation, on Eliquis. For now, I held his Eliquis as he may need invasive procedures. Plan to restart in the next 1-2 days. Thanks for this consultation. <ELECTRONICALLY SIGNED> By: Nitin Jones MD 02/25/21 1836 [id number] Jones MD /nt
[2021-02-26 01:07] VITALS: BP 129/65
[2021-02-26 04:00] LABS: HEMATOCRIT 28.6 % (42.0-52.0); HEMOGLOBIN 9.6 gm/dL (14.0-18.0); MCH 32.8 pg (26.0-34.0); MCHC 33.4 g/dL (28.0-37.0); MCV 98.2 fL (80.0-100.0); MPV 9.3 fl. (7.2-11.1); RBC 2.92 mil/uL (4.50-6.00); RDW-CV 14.3 % (10.5-14.5); WBC 10.6 thou/uL (4.0-11.0)
[2021-02-26 04:14] LABS: CALCIUM 8.9 mg/dL (8.5-10.1); CREATININE 3.4 mg/dL (0.6-1.3)
[2021-02-26 04:23] LABS: POTASSIUM 4.8 mmol/L (3.5-5.1)
[2021-02-26 05:35] VITALS: BP 131/72
[2021-02-26 08:15] VITALS: BP 146/66
[2021-02-26 12:23] VITALS: BP 127/67
--- NOTE | 2021-02-26 13:28 | NUR ---
Pulm and renal following. ?need for thora. ARU following. No weekend dc planned.
--- NOTE | 2021-02-26 13:57 | CON ---
[address] [address] CONSULTATION Name: WINDY MAR V Room: [address] IN M.R.#: [id number] Admission: 02/21/21 Attend Phys: Luke Singleton Discharge: Date of : 38 Report #: [id number] THIS REPORT FOR: cc: Moody Dalal Steve T. DO Arakelov, Alexandr V. MD ~ DATE OF CONSULTATION: 02/23/2021 REFERRING PHYSICIAN: Dr. Juarez. REASON FOR CONSULTATION: Acute kidney injury. HISTORY OF PRESENT ILLNESS: The patient is an 80-year-old gentleman, very well known to us who follows with me in my clinic. He has advanced chronic kidney disease stage IV. He also has pulmonary hypertension, cardiomyopathy, diabetes mellitus type 2, history of esophageal cancer, status post salvage resection, has severe peripheral artery disease, admitted with unable to keep anything down, had partial gastric outlet obstruction. On the case, Dr. Phillips took him to the GI lab and did endoscopy. The patient's creatinine on admission went up to 4.0, baseline is around 2.5-3. SOCIAL HISTORY: No tobacco or alcohol use currently. FAMILY HISTORY: No history of renal disease. MEDICATIONS: Reviewed. PHYSICAL EXAMINATION: GENERAL: Awake, alert, oriented, looks very debilitated. VITAL SIGNS: Blood pressure 114/56, heart rate is 76, afebrile. HEENT: Pupils are round. NECK: Supple. LUNGS: Decreased air movements bilaterally. CARDIAC: Distant heart tones. ABDOMEN: Nondistended. LOWER EXTREMITIES: With some edema. LABORATORY DATA: Serum sodium 144, potassium 3.9, chloride 105, carbon dioxide 34, BUN 95, creatinine 3.8. ASSESSMENT: 1. Chronic kidney disease stage IV. 2. Acute kidney injury, likely due to volume depletion with nausea and vomiting. 3. [place] [address] CONSULTATION Name: WINDY MAR V Room: [address]#: [id number] Admission: 02/21/21 Attend Phys: Luke Singleton Discharge: Date of : 38 Report #: [id number] 4. History of esophageal cancer. 5. Partial obstruction of the gastric outlet. PLAN: 1. Gentle hydration. 2. Follow labs. 3. The patient is not a candidate for any kind of dialysis given his very complicated and advanced medical conditions. He is in no shape to tolerate any dialysis. <ELECTRONICALLY SIGNED> By: Nate Morrell MD 02/26/21 1357 [id number] [id number] Morrell MD /nt
--- NOTE | 2021-02-26 14:28 | NUR ---
ASSUMED PT CARE AT 0730. PT IS ALERT AND ORIENTED X4 WITH MINIMAL CONFUSION AT TIMES. GIRLFRIEND AT BEDSIDE. ASSESSMENT COMPLETED. LUNGS ARE COARSE BILATERAL. PT ENCOURAGED TO COUGH, EFFORT IS GOOD BUT VERY LITTLE SPUTUM COUGHED UP. PT CONTINUES TO STATE HE FEELS LIKE HE'S NOT GOING TO GET BETTER. EMOTIONAL SUPPORT GIVEN. MEDICATIONS ADMINISTERED ORDERED. SANTOS DRAINING LIGHT YELLOW URINE. DRESSINGS CHANGED ORDERED.ASSISTED WITH TURNING AND REPOSITIONING Q2HR AND NEEDED. SAFETY MEASURES IN PLACE. PT UP TO BSC WITH ASSIST OF ONE.
[2021-02-26 16:15] VITALS: BP 126/59
[2021-02-27] VITALS: BP 125/68
[2021-02-27 04:00] VITALS: BP 160/74
[2021-02-27 08:00] VITALS: BP 137/64
[2021-02-27 08:27] LABS: ABSOLUTE LYMPHOCYTES 0.2 thou/uL (0.8-5.3); ABSOLUTE MONOCYTES 0.3 thou/uL (0.0-1.2); ABSOLUTE NEUTROPHILS 9.3 thou/uL (1.6-8.1); BASOPHILS 0.4 %; EOSINOPHILS 0.1 %; HEMOGLOBIN 8.9 gm/dL (14.0-18.0); LYMPHOCYTES 2.1 %; MCH 32.5 pg (26.0-34.0); MCHC 33.2 g/dL (28.0-37.0); MONOCYTES 3.5 %; MPV 9.2 fl. (7.2-11.1); NUCLEATED RBCS 0 /100WBC; PLATELET COUNT* 148 thou/uL (150-400); POLYS 93.9 %; RBC 2.75 mil/uL (4.50-6.00); RDW-CV 14.5 % (10.5-14.5); WBC 9.9 thou/uL (4.0-11.0)
[2021-02-27 08:40] LABS: ALBUMIN 2.7 g/dL (3.4-5.0); CALCIUM 8.5 mg/dL (8.5-10.1); CREATININE 3.8 mg/dL (0.6-1.3); MAGNESIUM 2.4 mg/dL (1.8-2.4); POTASSIUM 4.6 mmol/L (3.5-5.1); TOTAL BILIRUBIN 0.7 mg/dL (<0.1-1.0); TOTAL PROTEIN 6.4 g/dL (6.4-8.2)
[2021-02-27 12:23] VITALS: BP 135/64
[2021-02-27 17:06] VITALS: BP 104/53
--- NOTE | 2021-02-27 19:35 | NUR ---
Assuumed care at 0700. Pt is alert and oirented. Assessment done and charted. Pt sat up in the chair. Pt had eventful night. Pt had bowel movement today. Will continue to monitor pt.
[2021-02-27 20:00] VITALS: BP 117/56
[2021-02-28] VITALS: BP 123/60
--- NOTE | 2021-02-28 07:21 | NUR ---
ASSUMED CARE OF PT AFTER REPORT AT 1930. PT A&OX4. VSS. PHYSICAL ASSESSMENT COMPLETED AND CHARTED. PT ON O2 AT 2LNC. PT REFUSED BIPAP EVEN AFTER EDUCATION. PT WITH SANTOS TO DEPENDENT DRAIN. PT UP WITH 2 ASSIST FROM RECLINER TO BED. PT TRACING AFIB/BBB/PVC ON TELE. PT DENIES PAIN. GIRLFRIEND AT BS. CALL LIGHT WITHIN REACH. PT ABLE TO SLEEP WELL ON BED. FALL PRECAUTIONS IN PLACE.
[2021-02-28 08:00] VITALS: BP 112/60
[2021-02-28 08:39] LABS: HEMATOCRIT 27.2 % (42.0-52.0); MCH 32.5 pg (26.0-34.0); MCHC 33.1 g/dL (28.0-37.0); MCV 98.2 fL (80.0-100.0); MPV 8.7 fl. (7.2-11.1); RBC 2.77 mil/uL (4.50-6.00); RDW-CV 14.3 % (10.5-14.5); WBC 9.2 thou/uL (4.0-11.0)
[2021-02-28 08:50] LABS: CALCIUM 8.5 mg/dL (8.5-10.1); CREATININE 3.7 mg/dL (0.6-1.3); PHOSPHORUS* 5.9 mg/dL (2.5-4.9); POTASSIUM 4.4 mmol/L (3.5-5.1)
[2021-02-28 11:13] VITALS: BP 115/60
[2021-02-28 16:44] VITALS: BP 109/61
[2021-02-28 19:49] VITALS: BP 114/57
[2021-03-01 00:17] VITALS: BP 110/56
[2021-03-01 03:59] LABS: HEMATOCRIT 26.4 % (42.0-52.0); HEMOGLOBIN 8.9 gm/dL (14.0-18.0); MCHC 33.7 g/dL (28.0-37.0); MCV 97.9 fL (80.0-100.0); MPV 9.1 fl. (7.2-11.1); RBC 2.7 mil/uL (4.50-6.00); RDW-CV 14.1 % (10.5-14.5); WBC 7.3 thou/uL (4.0-11.0)
[2021-03-01 04:15] LABS: CALCIUM 8.2 mg/dL (8.5-10.1); CREATININE 3.6 mg/dL (0.6-1.3); MAGNESIUM 2.5 mg/dL (1.8-2.4)
[2021-03-01 06:06] VITALS: BP 107/61
--- NOTE | 2021-03-01 06:53 | NUR ---
PT A&OX4, VSS ON 1L NC, IV SALINE LOCKED, UP WITH ASSIST. REPOSTIONED Q2H. URINARY CATHETER IN PLACE. PRN PAIN MEDS (IV & ORAL) REQUESTED AND GIVEN ORDERED. PT RESTING IN BED. AFIB, BBB ON TELE MONITOR.
[2021-03-01 08:00] VITALS: BP 140/55
--- NOTE | 2021-03-01 12:49 | NUR ---
WOUND NURSE: PATIENT SEEN FOR FOLLOW UP ASSESSMENT PERTAINING TO COCCYX LESION. NOT AN OPEN WOUND, HAS THICKENED CALLOUS ONLY. APPEARS STABLE. BORDERED FOAM FOR PROTECTION ONLY. RIGHT FOREARM WITH INTACT DRY SCAB MEASURING 0.5 X 1.0 CM. RECOMMEND CHARISSE. RIGHT ELBOW WITH MINOR CONTUSION WITH PALE YELLOW WOUND BASE, MEASURES 0.5 X 0.5 X 0.1 CM. CLEANSED, THEN APPLIED SKIN PREP, THEN COVERED WITH A TRANSPARNT DRESSING. PATIENT IS NOT TEACHEABLE AT THIS TIME.
--- NOTE | 2021-03-01 14:55 | NUR ---
On 1L o2. ARU following vs home with paid caregivers per DOUGLAS Chan to discuss with Pt. Pulm following. Repeat cxr tomorrow.
[2021-03-01 16:24] VITALS: BP 117/58
[2021-03-01 20:12] VITALS: BP 110/69; BP 110/690
[2021-03-02 05:07] VITALS: BP 115/72
[2021-03-02 05:28] LABS: HEMATOCRIT 27.2 % (42.0-52.0); HEMOGLOBIN 9.1 gm/dL (14.0-18.0); MCH 32.7 pg (26.0-34.0); MCHC 33.7 g/dL (28.0-37.0); MCV 97.1 fL (80.0-100.0); MPV 9.3 fl. (7.2-11.1); NUCLEATED RBCS 0 /100WBC; PLATELET COUNT* 106 thou/uL (150-400); RDW-CV 14.1 % (10.5-14.5); WBC 5.2 thou/uL (4.0-11.0)
--- NOTE | 2021-03-02 05:30 | NUR ---
PATIENT ALERT WITH SOME CONFUSION. HE DOES USE CALL LIGHT APPROPRIATELY. FALL PRECAUTIONS IN PLACE. HE DOES USE HIS URINAL HAS DARK YELLOW OUTPUT AND HAD A BM LAST NIGHT. HE TOOK HIS PILLS IN [facility] AND REQUESTED RESTORIL PRN WHICH HE DID RECEIVE. THE DRESSING ON HIS RIGHT UPPER BACK WAS CHANGED OVERNIGHT. HIS OTHER WOUNDS HAVE DRESSINGS COVERING (SACRAL AREA) RIGHT ELBOW WELL. HE WAS ABLE TO SLEEP WELL THIS SHIFT. HE DOES HAVE SOME CONFUSION IN THE NIGHT. HIS LEFT CHEST PORT FLUSHES AND DRAWS WELL. LABS SENT THIS AM. WILL CONTINUE TO MONITOR.
[2021-03-02 05:41] LABS: ALBUMIN 2.7 g/dL (3.4-5.0); CALCIUM 8.3 mg/dL (8.5-10.1); CREATININE 3.2 mg/dL (0.6-1.3); MAGNESIUM 2.6 mg/dL (1.8-2.4); POTASSIUM 3.7 mmol/L (3.5-5.1); TOTAL BILIRUBIN 0.5 mg/dL (<0.1-1.0)
[2021-03-02 08:00] VITALS: BP 94/42
[2021-03-02 08:10] LABS: ABSOLUTE LYMPHOCYTES 0.3 thou/uL (0.8-5.3); ABSOLUTE NEUTROPHILS 4.9 thou/uL (1.6-8.1); PLATELET ESTIMATE ADEQUATE
[2021-03-02 11:17] VITALS: BP 138/54
[2021-03-02] MEDS ORDERED: LINEZOLID600 MG PO (13:00)
[2021-03-02 13:32] VITALS: BP 138/54
--- NOTE | 2021-03-02 14:12 | NUR ---
Pt discharging to home today, sig other in room and in agreement with POC. CM faxed referral to [facility] and HH orders to [facility], Pt in agreement with POC. Cm provided Pt with private duty caregiver list also. SO to transport. DOUGLAS faxed facesheet to [facility], Pt is current for home o2 and will need a portable tank at vt. Await approval to dispense tank. SO has people at home that can assist with getting Pt into the home.
[2021-03-02] MEDS ORDERED: LORAZEPAM 1 MG T1 MG PO (16:01)
[2021-03-02] MEDS ORDERED: NYSTATIN15 G2 TOP (16:01)
[2021-03-02 16:06] VITALS: BP 124/57
--- NOTE | 2021-03-02 19:14 | NUR ---
Patient discharged instructions and medication completed , right port deaccessed before discharged . patient left with significant other . no issue voiced at this time . will continue to observed.
== END 2021-03-02 16:51 | disposition home health service (06) | DRG 177 ==
LOC: M.ERS 00:43 → M.TBA-ER 03:25 → M.2W 03:25
PROVIDERS: Emergency Medicine; Family Medicine; Internal Medicine Critical Care Medicine; ADMIT Internal Medicine; ATTEND Internal Medicine
PROC: 0DJ08ZZ Inspection of Upper Intestinal Tract, Via Natural or Artificial Opening Endoscopic (ICD-10-PCS; principal; 2021-02-22)
PROC: 5A0935A Assistance with Respiratory Ventilation, Less than 24 Consecutive Hours, High Flow/Velocity Cannula (ICD-10-PCS; 2021-02-25)
DX: J15.6 Pneumonia due to other Gram-negative bacteria (principal); I50.33 Acute on chronic diastolic (congestive) heart failure; J96.21 Acute and chronic respiratory failure with hypoxia; J96.22 Acute and chronic respiratory failure with hypercapnia; E43 Unspecified severe protein-calorie malnutrition; N17.0 Acute kidney failure with tubular necrosis; B37.81 Candidal esophagitis; I13.0 Hypertensive heart and chronic kidney disease with heart failure and stage 1 through stage 4 chronic kidney disease, or unspecified chronic kidney disease; N18.4 Chronic kidney disease, stage 4 (severe); J44.1 Chronic obstructive pulmonary disease with (acute) exacerbation; J98.11 Atelectasis; J91.8 Pleural effusion in other conditions classified elsewhere; J44.0 Chronic obstructive pulmonary disease with (acute) lower respiratory infection; I27.20 Pulmonary hypertension, unspecified; E11.22 Type 2 diabetes mellitus with diabetic chronic kidney disease; E78.5 Hyperlipidemia, unspecified; E11.649 Type 2 diabetes mellitus with hypoglycemia without coma; E11.43 Type 2 diabetes mellitus with diabetic autonomic (poly)neuropathy; K44.9 Diaphragmatic hernia without obstruction or gangrene; K31.84 Gastroparesis; I70.1 Atherosclerosis of renal artery; I70.0 Atherosclerosis of aorta; S31.000A Unspecified open wound of lower back and pelvis without penetration into retroperitoneum, initial encounter; I25.10 Atherosclerotic heart disease of native coronary artery without angina pectoris; X58.XXXA Exposure to other specified factors, initial encounter; K59.09 Other constipation; K29.70 Gastritis, unspecified, without bleeding; K31.89 Other diseases of stomach and duodenum; I35.0 Nonrheumatic aortic (valve) stenosis; D64.9 Anemia, unspecified; R62.7 Adult failure to thrive; E11.65 Type 2 diabetes mellitus with hyperglycemia; I48.0 Paroxysmal atrial fibrillation; I95.1 Orthostatic hypotension; Z20.822 Contact with and (suspected) exposure to COVID-19; Z51.5 Encounter for palliative care; Z85.01 Personal history of malignant neoplasm of esophagus; Z87.891 Personal history of nicotine dependence; Z82.49 Family history of ischemic heart disease and other diseases of the circulatory system; Z68.25 Body mass index [BMI] 25.0-25.9, adult; Y93.89 Activity, other specified; Y92.89 Other specified places as the place of occurrence of the external cause; Y99.8 Other external cause status; Z86.14 Personal history of Methicillin resistant Staphylococcus aureus infection; Z79.899 Other long term (current) drug therapy